=== PATIENT | female | born 1980 | race Caucasian/White ===

== ENCOUNTER 2021-08-28 10:52 | Outpatient (REF) | payer OTHER, SELFPAY ==
[2021-08-28 11:05] LABS: MANUAL DIFF FLAG NO
[2021-08-28 11:32] LABS: Basophils Absolute Auto 0.1 X10*3/uL (0.0-0.2); Basophils Percent Auto 1.3 % (0-2); Eosinophils Absolute Auto 0.1 X10*3/uL (0.0-0.4); Eosinophils Percent Auto 2.2 % (0-4); Hematocrit 42.6 % (37.0-47.0); Hemoglobin 13.7 g/dl (12.0-16.0); Imm Gran Abs Auto 0.01 X10*3/uL (0.00-0.03); Imm Gran Pct Auto 0.2 % (0.0-0.4); Lymphocytes Absolute Auto 1.4 X10*3/uL (1.2-4.9); Lymphocytes Percent Auto 25.2 % (20-40); Mean Corpuscular HGB Conc 32.2 g/dl (31.0-35.0); Mean Corpuscular Hemoglobin 27.7 pg (27.0-33.0); Mean Corpuscular Volume 86.2 fL (80.0-98.0); Mean Platelet Volume 10.4 fL (9.4-12.3); Monocytes Absolute Auto 0.5 X10*3/uL (0.1-1.2); Monocytes Percent Auto 8.6 % (2-11); Neutrophils Absolute Auto 3.4 x10*3/uL (2.0-8.3); Neutrophils Percent Auto 62.5 % (45-73); Platelet Count 249 X10*3/uL (160-400); Red Blood Count 4.94 X10*6/uL (4.20-5.50); Red Cell Distribution Width 12.9 % (11.0-16.0); White Blood Count 5.5 X10*3/uL (4.8-10.8)
[2021-08-28 11:48] LABS: INTERNATIONAL NORM RATIO 1.2 (0.9-1.1); Prothrombin Time 13.3 SEC (9.9-13.0)
[2021-08-28 12:12] LABS: Alanine Aminotransferase 14 U/L (0-31); Alkaline Phosphatase 69 U/L (39-117); Anion Gap 10 (12-20); Aspartate Amino Transferase 15 U/L (5-31); Bilirubin Total 0.9 mg/dL (0.0-1.0); Blood Urea Nitrogen 16 mg/dL (9-16); Calcium 9.3 mg/dL (8.4-10.2); Carbon Dioxide 26 mmol/L (22-29); Chloride 105 mmol/L (96-108); Cholesterol 191 mg/dL; Estimated Glomerular Filt Rate > 60; Glucose Random 80 mg/dL (60-115); HDL Cholesterol 76 mg/dL; LDL Cholesterol Calculated 105 mg/dl; Potassium 4.1 mmol/L (3.3-5.1); Sodium 137 mmol/L (135-145); Total Protein 7.4 g/dL (6.5-8.0); Triglycerides 52 mg/dL
[2021-08-28 12:18] LABS: TSH reflex Free T4 1.27 uIU/mL (0.32-4.0)
== END 2021-08-28 10:53 | disposition home or self-care (01) ==
LOC: HO.LAB 10:52
PROVIDERS: PCP Nurse Practitioner Family; Visit Provider Nurse Practitioner Family
DX: E78.00 Pure hypercholesterolemia, unspecified (principal); I10 Essential (primary) hypertension; E03.9 Hypothyroidism, unspecified; Z76.89 Persons encountering health services in other specified circumstances; Z86.718 Personal history of other venous thrombosis and embolism; Z87.59 Personal history of other complications of pregnancy, childbirth and the puerperium
CPT/HCPCS: 36415; 80053; 80061; 84443; 85025; 85610

== ENCOUNTER 2021-11-11 14:43 | Outpatient (REF) | payer OTHER, SELFPAY ==
[2021-11-11 17:56] LABS: Vitamin D 25-OH Total 20.4 ng/mL (>30)
== END 2021-11-11 14:44 | disposition home or self-care (01) ==
LOC: HO.LAB 14:43
PROVIDERS: PCP Nurse Practitioner Family; Visit Provider Nurse Practitioner Family
DX: E03.9 Hypothyroidism, unspecified (principal)
CPT/HCPCS: 36415; 82306; 84443

== ENCOUNTER 2022-03-03 12:51 | Outpatient (REF) | payer OTHER, SELFPAY ==
--- NOTE | ~2022-03-03 | US_ITS ---
EXAMINATION: US LOWER EXTREMITY VENOUS (REFLUX EXAM), BILATERAL CLINICAL INDICATION: Chronic venous insufficiency with lower extremity varicose veins COMPARISON: None. TECHNIQUE: Color flow triplex imaging and compression Doppler was performed to evaluate both the deep and the superficial systems bilaterally. To evaluate the superficial system, the examination was performed in the upright position. Color-flow Doppler ultrasound and compression ultrasound were utilized. In addition, maneuvers were utilized to demonstrate reflux. FINDINGS: 1. DEEP VENOUS ULTRASOUND OF THE RIGHT LOWER EXTREMITY: Common Femoral Vein: Compressible, normal respiratory variation and augmented flow. Femoral Vein: Compressible, normal color flow and augmentation. Popliteal Vein: Compressible, normal augmentation. Deep Reflux: There is no evidence of reflux in the deep system in either the common femoral vein or the popliteal vein. There is no evidence of a Larkin's cyst. 2. SUPERFICIAL ULTRASOUND WITH DOPPLER OF RIGHT LOWER EXTREMITY: GREAT SAPHENOUS VEIN: Saphenofemoral Junction: 0.8 cm; Reflux: 0 ms Proximal Thigh: 0.6 cm; Reflux: 0 ms Mid Thigh: 0.4 cm; Reflux: 0 ms Above Knee: 0.5 cm; Reflux: 0 ms At Knee: 0.2 cm; Reflux: 2888 ms Below Knee: 0.2 cm; Reflux: 3308 ms Mid Calf: 0.2 cm; Reflux: 3272 ms Ankle: 0.2 cm; Reflux: 0 ms DUPLICATED MEDIAL GREAT SAPHENOUS VEIN: Diameter: None Imaged Reflux: NA DUPLICATED LATERAL GREAT SAPHENOUS VEIN: Diameter: 0.5 cm Reflux: None SMALL SAPHENOUS VEIN: Proximal: 0.3 cm; Reflux: 2220 ms Distal: 0.4 cm; Reflux: 0 ms VEIN OF GIACOMINI: None Imaged. PERFORATORS: Location: None Imaged Size: NA Reflux: NA VARICOSITIES: Location: Proximal and mid thigh Size: 0.3 to 0.4 cm Reflux: None 3. DEEP VENOUS ULTRASOUND OF THE LEFT LOWER EXTREMITY: Common Femoral Vein: Compressible, normal respiratory variation and augmented flow. Femoral Vein: Compressible, normal color flow and augmentation. Popliteal Vein: Compressible, normal augmentation. Deep Reflux: There is no evidence of reflux in the deep system in either the common femoral vein or the popliteal vein. There is no evidence of a Larkin's cyst. 4. SUPERFICIAL ULTRASOUND WITH DOPPLER OF LEFT LOWER EXTREMITY: GREAT SAPHENOUS VEIN: Saphenofemoral Junction: 0.5 cm; Reflux: 624 ms Proximal Thigh: 0.6 cm; Reflux: 0 ms Mid Thigh: 0.4 cm; Reflux: 0 ms Above Knee: 0.4 cm; Reflux: 0 ms At Knee: 0.3 cm; Reflux: 0 ms Below Knee: 0.3 cm; Reflux: 0 ms Mid Calf: 2.2 cm; Reflux: 0 ms Ankle: 0.2 cm; Reflux: 0 ms DUPLICATED MEDIAL GREAT SAPHENOUS VEIN: Diameter: None Imaged Reflux: NA DUPLICATED LATERAL GREAT SAPHENOUS VEIN: Diameter: 0.4 cm Reflux: None SMALL SAPHENOUS VEIN: Proximal: 0.3 cm; Reflux: 0 ms Distal: 0.1 cm; Reflux: 0 ms VEIN OF GIACOMINI: None Imaged. PERFORATORS: Location: None Imaged Size: NA Reflux: NA VARICOSITIES: Location: None Imaged Size: NA Reflux: NA US/US venous duplex LE BI IMPRESSION: Right: Focal severe reflux in the great saphenous vein within the right calf. There is severe reflux in the right small saphenous vein. Small varicosities seen in the thigh Left: Borderline mild to moderate reflux in the left great saphenous vein at the saphenofemoral junction.
== END 2022-03-03 12:52 | disposition home or self-care (01) ==
LOC: HO.US 12:51
PROVIDERS: Visit Provider Surgery Vascular Surgery
DX: I83.12 Varicose veins of left lower extremity with inflammation (principal)
CPT/HCPCS: 93970

== ENCOUNTER 2022-05-05 13:15 | Outpatient (REF) | payer MEDICAID, SELFPAY ==
[2022-05-05 16:59] LABS: TSH reflex Free T4 2.72 uIU/mL (0.32-4.0); Vitamin D 25-OH Total 15.7 ng/mL (>30)
== END 2022-05-05 13:16 | disposition home or self-care (01) ==
LOC: HO.LAB 13:15
PROVIDERS: PCP Nurse Practitioner Family; Visit Provider Nurse Practitioner Family
DX: E03.9 Hypothyroidism, unspecified (principal); R79.89 Other specified abnormal findings of blood chemistry
CPT/HCPCS: 36415; 82306; 84443

== ENCOUNTER 2023-02-04 13:23 | Outpatient (REF) | payer OTHER, SELFPAY ==
[2023-02-04 14:47] LABS: TSH reflex Free T4 3.53 uIU/mL (0.32-4.0); Vitamin D 25-OH Total 22.1 ng/mL (>30)
== END 2023-02-04 13:24 | disposition home or self-care (01) ==
LOC: HO.LAB 13:23
PROVIDERS: PCP Nurse Practitioner Family; Visit Provider Nurse Practitioner Family
DX: E03.9 Hypothyroidism, unspecified (principal); R79.89 Other specified abnormal findings of blood chemistry
CPT/HCPCS: 36415; 82306; 84443

== ENCOUNTER 2023-04-20 15:12 | Outpatient (AMB) | payer OTHER, SELFPAY ==
--- OUTSIDE RECORDS SUMMARY | 2023-04-20 15:16 | XMS_ITS | Continuity of Care Document ---
Author Name Unknown Organization [facility] Address [address] [place] [address], [address] [address]- Care Team Providers Care Branch Office Manager Name Role Phone Not on Staff, PCP Primary Care Physician Unavail able Encounter [facility] Date(s): 05/27/20 - [facility] [address] [facility], [address] [place] [address]- Allergies, Adverse Reactions, Alerts Substance Reaction Severity Status Dust Active Medications doxycycline hyclate 100 mg oral tablet 1 tablet = 100 mg, By Mouth, 2 times a day, # 28 tablet, 5 Refills, Maintenance, 05/13/20 14:10:00 EST, [facility], Partial fill upon patient request if the prescription is for a scheduleII opioid drug., 170.1, cm, 03/20/20 10:21:00 EST,... Start Date: 05/13/20 Status: Ordered estradiol 0.1 mg/24 hours twice weekly transdermal film, extended release See Instructions, apply 2 patches the day after retrieval and change QOD, # 32 each, 5 Refills, Maintenance, 05/13/20 14:10:00 EST, [facility], Partial fill upon patient request if the prescription is for a schedule II opioid drug., 170.1,... Start Date: 05/13/20 Status: Ordered Gonal-F 1050 units subcutaneous injection = 300 International_Units, Subcutaneous Infusion, Daily, # 3 kit, 5 Refills, Maintenance, 05/13/20 14:10:00 EST, [facility], Partial fill upon patient request if the prescription is for aschedule II opioid drug., 300 International_Units S... Start Date: 05/13/20 Status: Ordered leuprolide 5 mg/mL subcutaneous solution See Instructions, 10 units sc QD, needs for 05/26, # 1 kit, 5 Refills, Maintenance, 05/13/20 14:13:00 EST, [facility], Partial fill upon patient request if the prescription is for a schedule II opioid drug., 170.1, cm, 03/20/20 10:21:00 EST... Start Date: 05/13/20 Status: Ordered levothyroxine 0.137 mg oral tablet 1 tablet, By Mouth, Daily, # 90 tablet, 3 Refills, Maintenance, 06/19/20 9:24:00 EST, [facility] #[id number], 170.1, cm, 03/20/20 10:21:00 EST, Height, 65.9, kg, 10/29/19 13:03:00 EDT, Dry Weight Start Date: 06/19/20 Status: Ordered Menopur 75 intl units subcutaneous injection = 150 International_Units, Subcutaneous Infusion, Daily, # 25 each, 5 Refills, Maintenance, 05/13/20 14:10:00 EST, [facility], Partial fill upon patient request if the prescription is fora schedule II opioid drug., 170.1, cm, 03/20/20 10:... Start Date: 05/13/20 Status: Ordered Ovidrel 250 mcg/0.5 mL subcutaneous solution = 250 mcg, Subcutaneous Injection, Once, # 1 each, 5 Refills, Soft Stop, 05/13/20 14:10:00 EST, Solution, [facility], Partial fill upon patient request if the prescription is for a schedule II opioid drug., 170.1, cm, 03/20/20 10:21:00 EST... Start Date: 05/13/20 Status: Ordered Multivitamins See Instructions, Takes By Mouth Every other day, 0 Refills, Maintenance, 03/20/20 10:22:00 EST, Partial fill upon patient request Start Date: 03/20/20 Status: Ordered Prometrium 200 mg oral capsule See Instructions, Insert 1 vaginally TID, # 90 capsule, 5 Refills, Maintenance, 05/13/20 14:10:00 EST, [facility], Partial fill upon patient request if the prescription is for a schedule II opioid drug., 170.1, cm, 03/20/20 10:21:00 EST, H... Start Date: 05/13/20 Status: Ordered Problem List Condition Effective Dates Status Health Status Inform ant Acquired hypothyroidism(Confirmed) Active Bilateral ovarian cysts(Confirmed) Active Dysmenorrhea(Confirmed) Active Endometriosis, severe(Confirmed) Active Female infertility(Confirmed) Active Social History Social History Type Response Smoking Status Never smoker entered on: 01/19/18 Sex
--- OUTSIDE RECORDS SUMMARY | 2023-04-20 15:16 | XMS_ITS | Continuity of Care Document ---
Author Name Unknown Organization [facility] Address [address] [place] [address], [address] [place] [address]- Care Team Providers Care Associate Team Physician Name Role Phone Radhika HERNANDEZ, Cristal Primary Care Physician [phone] Encounter [facility] Date(s): 07/18/20 - 08/17/20 [facility] [address], [address] [place] [address]- Allergies, Adverse Reactions, Alerts Substance Reaction Severity Status Dust Active Medications 0.5cc insulin syringes 0.5cc insulin syringes, See Instructions, # 10 each, Refills 5, Tot. Refills 5, Maintenance, use with lupron; pt already has this medication, 07/04/20 11:27:00 EST, Compound, 170.1, cm, 03/20/20 10:21:00 EST, Height, 65.9, kg, 10/29/19 13:03:00 Mal ABERNATHY.. Start Date: 07/04/20 Status: Ordered cabergoline 0.5 mg oral tablet 1 tablet = 0.5 mg, By Mouth, Daily, Begin 2 hours before hCG injection, # 7 tablet, 0 Refills, Maintenance, 07/12/20 12:08:00 EST, [facility] #[id number], Partial fill upon patient request if the prescription is for a schedule II opioid drug., 1... Start Date: 07/12/20 Stop Date: 07/19/20 Status: Ordered doxycycline hyclate 100 mg oral tablet 1 tablet = 100 mg, By Mouth, 2 times a day, # 28 tablet, 5 Refills, Maintenance, 05/13/20 14:10:00 EST, [facility], Partial fill upon patient request if the prescription is for a scheduleII opioid drug., 170.1, cm, 03/20/20 10:21:00 EST,... Start Date: 05/13/20 Status: Ordered estradiol 0.1 mg/24 hours twice weekly transdermal film, extended release See Instructions, apply 2 patches the day after retrieval and change QOD, # 32 each, 5 Refills, Maintenance, 05/13/20 14:10:00 EST, [facility], Partial fill upon patient request if the prescription is for a schedule II opioid drug., 170.1,... Start Date: 05/13/20 Status: Ordered Gonal-F 1050 units subcutaneous injection = 300 International_Units, Subcutaneous Infusion, Daily, # 3 kit, 5 Refills, Maintenance, 05/13/20 14:10:00 EST, [facility], Partial fill upon patient request if the prescription is for aschedule II opioid drug., 300 International_Units S... Start Date: 05/13/20 Status: Ordered leuprolide 5 mg/mL subcutaneous solution See Instructions, 10 units sc QD, needs for 05/26, # 1 kit, 5 Refills, Maintenance, 05/13/20 14:13:00 EST, [facility], Partial fill upon patient request if the prescription is for a schedule II opioid drug., 170.1, cm, 03/20/20 10:21:00 EST... Start Date: 05/13/20 Status: Ordered levothyroxine 0.137 mg oral tablet 1 tablet, By Mouth, Daily, # 90 tablet, 3 Refills, Maintenance, 06/19/20 9:24:00 EST, [facility] #[id number], 170.1, cm, 03/20/20 10:21:00 EST, Height, 65.9, kg, 10/29/19 13:03:00 EDT, Dry Weight Start Date: 06/19/20 Status: Ordered Menopur 75 intl units subcutaneous injection = 150 International_Units, Subcutaneous Infusion, Daily, # 25 each, 5 Refills, Maintenance, 05/13/20 14:10:00 EST, [facility], Partial fill upon patient request if the prescription is fora schedule II opioid drug., 170.1, cm, 03/20/20 10:... Start Date: 05/13/20 Status: Ordered Ovidrel 250 mcg/0.5 mL subcutaneous solution = 250 mcg, Subcutaneous Injection, Once, # 1 each, 5 Refills, Soft Stop, 05/13/20 14:10:00 EST, Solution, [facility], Partial fill upon patient request if the prescription is for a schedule II opioid drug., 170.1, cm, 03/20/20 10:21:00 EST... Start Date: 05/13/20 Status: Ordered oxyCODONE 5 mg oral tablet 5 mg, 1, tablet, By Mouth, Every 6 hours, PRN, # 8 tablet, Refills 0, Tot. Refills 0, Maintenance, Pain , Severe, 07/12/20 13:53:00 EST, Route to Pharmacy Electronically, [facility] #[id number],Partial fill upon patient request, 170.1, cm, 03/20... Start Date: 07/12/20 Status: Ordered Multivitamins See Instructions, Takes By Mouth Every other day, 0 Refills, Maintenance, 03/20/20 10:22:00 EST, Partial fill upon patient request Start Date: 03/20/20 Status: Ordered Prometrium 200 mg oral capsule See Instructions, Insert 1 vaginally TID, # 90 capsule, 5 Refills, Maintenance, 05/13/20 14:10:00 EST, [facility], Partial fill upon patient request if the prescription is for a schedule II opioid drug., 170.1, cm, 03/20/20 10:21:00 EST, H... Start Date: 05/13/20 Status: Ordered Valium 5 mg oral tablet 5 mg, 1, tablet, By Mouth, Once, 1 tab po 1hr before procedure take the other with you to the hospital. May repeat X 1., # 2 tablet, Refills 0, Tot. Refills 0, Soft Stop, 07/12/20 13:53:00 EST, [facility], [facility]... Start Date: 07/12/20 Status: Ordered Problem List Condition Effective Dates Status Health Status Inform ant Acquired hypothyroidism(Confirmed) Active Bilateral ovarian cysts(Confirmed) Active Dysmenorrhea(Confirmed) Active Endometriosis, severe(Confirmed) Active Female infertility(Confirmed) Active Social History Social History Type Response Smoking Status Never smoker entered on: 01/19/18 Sex
--- OUTSIDE RECORDS SUMMARY | 2023-04-20 15:16 | XMS_ITS | Continuity of Care Document ---
Author Name Unknown Organization [facility] Address [address], [address] [place] [address]- Care Team Providers Care Video Machines Mechanic Name Role Phone Not on Staff, PCP Primary Care Physician Unavail able Encounter [facility] Date(s): 05/15/20 - 06/14/20 [facility] [address] [place] [address] Allergies, Adverse Reactions, Alerts Substance Reaction Severity Status Dust Active Medications doxycycline hyclate 100 mg oral tablet 1 tablet = 100 mg, By Mouth, 2 times a day, # 28 tablet, 5 Refills, Maintenance, 05/13/20 14:10:00 EST, [facility], Partial fill upon patient request if the prescription is for a scheduleII opioid drug., 170.1, cm, 03/20/20 10:21:00 EST,... Start Date: 05/13/20 Status: Ordered estradiol 0.1 mg/24 hours twice weekly transdermal film, extended release See Instructions, apply 2 patches the day after retrieval and change QOD, # 32 each, 5 Refills, Maintenance, 05/13/20 14:10:00 EST, [facility], Partial fill upon patient request if the prescription is for a schedule II opioid drug., 170.1,... Start Date: 05/13/20 Status: Ordered Gonal-F 1050 units subcutaneous injection = 300 International_Units, Subcutaneous Infusion, Daily, # 3 kit, 5 Refills, Maintenance, 05/13/20 14:10:00 EST, [facility], Partial fill upon patient request if the prescription is for aschedule II opioid drug., 300 International_Units S... Start Date: 05/13/20 Status: Ordered leuprolide 5 mg/mL subcutaneous solution See Instructions, 10 units sc QD, needs for 05/26, # 1 kit, 5 Refills, Maintenance, 05/13/20 14:13:00 EST, [facility], Partial fill upon patient request if the prescription is for a schedule II opioid drug., 170.1, cm, 03/20/20 10:21:00 EST... Start Date: 05/13/20 Status: Ordered levothyroxine 137 mcg (0.137 mg) oral capsule 1 capsule = 137 mcg, By Mouth, Daily, # 30 capsule, 2 Refills, Maintenance, 03/25/20 16:29:00 EST, Capsule, [facility] #[id number], Partial fill upon patient request, 170.1, cm, 03/20/20 10:21:00 EST, Height, 65.9, kg, 10/29/19 13:03:00 EDT, Dry... Start Date: 03/25/20 Status: Ordered Menopur 75 intl units subcutaneous injection = 150 International_Units, Subcutaneous Infusion, Daily, # 25 each, 5 Refills, Maintenance, 05/13/20 14:10:00 EST, [facility], Partial fill upon patient request if the prescription is fora schedule II opioid drug., 170.1, cm, 03/20/20 10:... Start Date: 05/13/20 Status: Ordered Ovidrel 250 mcg/0.5 mL subcutaneous solution = 250 mcg, Subcutaneous Injection, Once, # 1 each, 5 Refills, Soft Stop, 05/13/20 14:10:00 EST, Solution, [facility], Partial fill upon patient request [...] capsule, 5 Refills, Maintenance, 05/13/20 14:10:00 EST, [facility], Partial fill upon patient request if [...]
--- OUTSIDE RECORDS SUMMARY | 2023-04-20 15:16 | XMS_ITS | Continuity of Care Document ---
Author Name Unknown Organization [facility] Address [address] [place] [address], [address] [address]- Care Team Providers Care Manager Physical Name Role Phone Not on Staff, PCP Primary Care Physician Unavail able [place] [facility] [place]03[place] - 07/03/20 [facility] [address] [facility] [place] [address]- Allergies, Adverse Reactions, Alerts Substance Reaction Severity Status Dust Active Medications 0.5cc insulin syringes 0.5cc insulin syringes, See Instructions, # 10 each, Refills 5, Tot. Refills 5, Maintenance, use with lupron; pt already has this medication, 07/03/20 16:40:00 EST, Compound, 170.1, cm, 03/20/20 10:21:00 EST, Height, 65.9, kg, 10/29/19 13:03:00 EDT DMahi.. Start Date: 07/03/20 Status: Ordered doxycycline hyclate 100 mg oral tablet 1 tablet = 100 mg, By Mouth, 2 times a day, # 28 tablet, 5 Refills, Maintenance, 05/13/20 14:10:00 EST, [facility], Partial fill upon patient request if the prescription is for a scheduleII opioid drug., 170.1, cm, 03/20/20 10:21:00 EST,... Start Date: 05/13/20 Status: Ordered estradiol 0.1 mg/24 hours twice weekly transdermal film, extended release See Instructions, apply 2 patches the day after retrieval and change QOD, # 32 each, 5 Refills, Maintenance, 05/13/20 14:10:00 EST, [facility], Partial fill upon patient request if the prescription is for a schedule II opioid drug., 170.1,... Start Date: 05/13/20 Status: Ordered Gonal-F 1050 units subcutaneous injection = 300 International_Units, Subcutaneous Infusion, Daily, # 3 kit, 5 Refills, Maintenance, 05/13/20 14:10:00 EST, [facility], Partial fill upon patient request if the prescription is for aschedule II opioid drug., 300 International_Units S... Start Date: 05/13/20 Status: Ordered leuprolide 5 mg/mL subcutaneous solution See Instructions, 10 units sc QD, needs for 05/26, # 1 kit, 5 Refills, Maintenance, 05/13/20 14:13:00 EST, [facility], Partial fill upon patient request if the prescription is for a schedule II opioid drug., 170.1, cm, 03/20/20 10:21:00 EST... Start Date: 05/13/20 Status: Ordered levothyroxine 0.137 mg oral tablet 1 tablet, By Mouth, Daily, # 90 tablet, 3 Refills, Maintenance, 06/19/20 9:24:00 EST, [facility] #[id number], 170.1, cm, 03/20/20 10:21:00 EST, Height, 65.9, kg, 10/29/19 13:03:00 EDT, Dry Weight Start Date: 06/19/20 Status: Ordered Menopur 75 intl units subcutaneous injection = 150 International_Units, Subcutaneous Infusion, Daily, # 25 each, 5 Refills, Maintenance, 05/13/20 14:10:00 EST, [facility], Partial fill upon patient request if the prescription is fora schedule II opioid drug., 170.1, cm, 03/20/20 10:... Start Date: 05/13/20 Status: Ordered Ovidrel 250 mcg/0.5 mL subcutaneous solution = 250 mcg, Subcutaneous Injection, Once, # 1 each, 5 Refills, Soft Stop, 05/13/20 14:10:00 EST, Solution, [facility], Partial fill upon patient [...] capsule, 5 Refills, Maintenance, 05/13/20 14:10:00 EST, [facility], Partial fill upon patient [...]
--- OUTSIDE RECORDS SUMMARY | 2023-04-20 15:16 | XMS_ITS | Continuity of Care Document ---
Author Name Unknown Organization [facility] Address [address], [address] [place] [address]- Care Team Providers Care Pedodontist Name Role Phone Not on Staff, PCP Primary Care Physician Unavail able [place] [facility] [place]20 [facility] [address] [place] [address] Allergies, Adverse Reactions, Alerts Substance Reaction Severity Status Dust Active Medications 0.5cc insulin syringes 0.5cc insulin syringes, See Instructions, # 10 each, Refills 5, Tot. Refills 5, Maintenance, use with lupron; pt already has this medication, 07/04/20 11:27:00 EST, Compound, 170.1, cm, 03/20/20 10:21:00 EST, Height, 65.9, kg, 10/29/19 13:03:00 EDT DMahi.. Start Date: 07/04/20 Status: Ordered cabergoline 0.5 mg oral tablet 1 tablet = 0.5 mg, By Mouth, Daily, Begin 2 hours before hCG injection, # 7 tablet, 0 Refills, Maintenance, 07/12/20 12:08:00 EST, [facility] #[id number], Partial fill upon patient request if the prescription is for a schedule II opioid drug., 1... Start Date: 07/12/20 Stop Date: 07/19/20 Status: Ordered doxycycline hyclate 100 mg oral tablet 1 tablet = 100 mg, By Mouth, 2 times a day, # 28 tablet, 5 Refills, Maintenance, 05/13/20 14:10:00 EST, [facility], Partial fill upon patient request if the prescription is for a scheduleII opioid drug., 170.1, cm, 03/20/20 10:21:00 EST,... Start Date: 05/13/20 Status: Ordered estradiol 0.1 mg/24 hours twice weekly transdermal film, extended release See Instructions, apply 2 patches the day after retrieval and change QOD, # 32 each, 5 Refills, Maintenance, 05/13/20 14:10:00 EST, [facility], Partial fill upon patient request if the prescription is for a schedule II opioid drug., 170.1,... Start Date: 05/13/20 Status: Ordered Gonal-F 1050 units subcutaneous injection = 300 International_Units, Subcutaneous Infusion, Daily, # 3 kit, 5 Refills, Maintenance, 05/13/20 14:10:00 EST, [facility], Partial fill upon patient request if the prescription is for aschedule II opioid drug., 300 International_Units S... Start Date: 05/13/20 Status: Ordered leuprolide 5 mg/mL subcutaneous solution See Instructions, 10 units sc QD, needs for 05/26, # 1 kit, 5 Refills, Maintenance, 05/13/20 14:13:00 EST, [facility], Partial fill upon patient request if the prescription is for a schedule II opioid drug., 170.1, cm, 03/20/20 10:21:00 EST... Start Date: 05/13/20 Status: Ordered levothyroxine 0.137 mg oral tablet 1 tablet, By Mouth, Daily, # 90 tablet, 3 Refills, Maintenance, 06/19/20 9:24:00 EST, [facility] #[id number], 170.1, cm, 03/20/20 10:21:00 EST, Height, 65.9, kg, 10/29/19 13:03:00 EDT, Dry Weight Start Date: 06/19/20 Status: Ordered Menopur 75 intl units subcutaneous injection = 150 International_Units, Subcutaneous Infusion, Daily, # 25 each, 5 Refills, Maintenance, 05/13/20 14:10:00 EST, [facility], Partial fill upon patient request if the prescription is fora schedule II opioid drug., 170.1, cm, 03/20/20 10:... Start Date: 05/13/20 Status: Ordered Ovidrel 250 mcg/0.5 mL subcutaneous solution = 250 mcg, Subcutaneous Injection, Once, # 1 each, 5 Refills, Soft Stop, 05/13/20 14:10:00 EST, Solution, [facility], Partial fill upon patient request if the prescription is for a schedule II opioid drug., 170.1, cm, 03/20/20 10:21:00 EST... Start Date: 05/13/20 Status: Ordered oxyCODONE 5 mg oral tablet 5 mg, 1, tablet, By Mouth, Every 6 hours, PRN, # 8 tablet, Refills 0, Tot. Refills 0, Maintenance, Pain , Severe, 07/12/20 13:53:00 EST, Route to Pharmacy Electronically, [facility] #[id number],Partial fill upon patient request, 170.1, cm, 03/20... Start Date: 07/12/20 Status: Ordered Multivitamins See Instructions, Takes By Mouth Every other day, 0 Refills, Maintenance, 03/20/20 10:22:00 EST, Partial fill upon patient request Start Date: 03/20/20 Status: Ordered Prometrium 200 mg oral capsule See Instructions, Insert 1 vaginally TID, # 90 capsule, 5 Refills, Maintenance, 05/13/20 14:10:00 EST, [facility], Partial fill upon patient [...] Stop, 07/12/20 13:53:00 EST, [facility], [facility] #0... Start Date: 07/12/20 Status: Ordered Problem List Condition Effective Dates Status Health Status Inform ant Acquired hypothyroidism(Confirmed) Active Bilateral ovarian cysts(Confirmed) Active Dysmenorrhea(Confirmed) Active Endometriosis, severe(Confirmed) Active Female infertility(Confirmed) Active Social History Social History Type Response Smoking Status Never smoker entered on: 01/19/18 Sex
--- OUTSIDE RECORDS SUMMARY | 2023-04-20 15:16 | XMS_ITS | Continuity of Care Document ---
Author Name Unknown Organization [facility] Address [address] [place] [address], [address] [place] [address]- Care Team Providers Care Recruit Instructor Name Role Phone Not on Staff, PCP Primary Care Physician Unavail able [place] [facility] [place] 06/24/20 - [facility] [address], [address] [place] [address]- Allergies, Adverse Reactions, Alerts Substance Reaction Severity Status Dust Active Medications 0.5cc insulin syringes 0.5cc insulin syringes, See Instructions, # 10 each, Refills 5, Tot. Refills 5, Maintenance, use with lupron; pt already has this medication, 07/04/20 11:27:00 EST, Compound, 170.1, cm, 03/20/20 10:21:00 EST, Height, 65.9, kg, 10/29/19 13:03:00 EDTMal.. Start Date: 07/04/20 Status: Ordered cabergoline 0.5 mg oral tablet 1 tablet = 0.5 mg, By Mouth, Daily, Begin 2 hours before hCG injection, # 7 tablet, 0 Refills, Maintenance, 07/12/20 12:08:00 EST, [facility] #[id number], Partial fill upon patient request if the prescription is for a schedule II opioid drug., 1... Start Date: 07/12/20 Stop Date: 07/19/20 Status: Ordered doxycycline hyclate 100 mg oral tablet 1 tablet = 100 mg, By Mouth, 2 times a day, # 28 tablet, 5 Refills, Maintenance, 05/13/20 14:10:00 EST, [facility], Partial fill upon patient request if the prescription is for a scheduleII opioid drug., 170.1, cm, 03/20/20 10:21:00 EST,... Start Date: 05/13/20 Status: Ordered estradiol 0.1 mg/24 hours twice weekly transdermal film, extended release See Instructions, apply 2 patches the day after retrieval and change QOD, # 32 each, 5 Refills, Maintenance, 05/13/20 14:10:00 EST, [facility], Partial fill upon patient request if the prescription is for a schedule II opioid drug., 170.1,... Start Date: 05/13/20 Status: Ordered Gonal-F 1050 units subcutaneous injection = 300 International_Units, Subcutaneous Infusion, Daily, # 3 kit, 5 Refills, Maintenance, 05/13/20 14:10:00 EST, [facility], Partial fill upon patient request if the prescription is for aschedule II opioid drug., 300 International_Units S... Start Date: 05/13/20 Status: Ordered leuprolide 5 mg/mL subcutaneous solution See Instructions, 10 units sc QD, needs for 05/26, # 1 kit, 5 Refills, Maintenance, 05/13/20 14:13:00 EST, [facility], Partial fill upon patient request if the prescription is for a schedule II opioid drug., 170.1, cm, 03/20/20 10:21:00 EST... Start Date: 05/13/20 Status: Ordered levothyroxine 0.137 mg oral tablet 1 tablet, By Mouth, Daily, # 90 tablet, 3 Refills, Maintenance, 06/19/20 9:24:00 EST, [facility] #[id number], 170.1, cm, 03/20/20 10:21:00 EST, Height, 65.9, kg, 10/29/19 13:03:00 EDT, Dry Weight Start Date: 06/19/20 Status: Ordered Menopur 75 intl units subcutaneous injection = 150 International_Units, Subcutaneous Infusion, Daily, # 25 each, 5 Refills, Maintenance, 05/13/20 14:10:00 EST, [facility], Partial fill upon patient request if the prescription is fora schedule II opioid drug., 170.1, cm, 03/20/20 10:... Start Date: 05/13/20 Status: Ordered Ovidrel 250 mcg/0.5 mL subcutaneous solution = 250 mcg, Subcutaneous Injection, Once, # 1 each, 5 Refills, Soft Stop, 05/13/20 14:10:00 EST, Solution, [facility], Partial fill upon patient request if the prescription is for a schedule II opioid drug., 170.1, cm, 03/20/20 10:21:00 EST... Start Date: 05/13/20 Status: Ordered oxyCODONE 5 mg oral tablet 5 mg, 1, tablet, By Mouth, Every 6 hours, PRN, # 8 tablet, Refills 0, Tot. Refills 0, Maintenance, Pain , Severe, 07/12/20 13:53:00 EST, Route to Pharmacy Electronically, [facility] #[id number],Partial fill upon patient request, 170.1, cm, 03/20... Start Date: 07/12/20 Status: Ordered Multivitamins See Instructions, Takes By Mouth Every other day, 0 Refills, Maintenance, 03/20/20 10:22:00 EST, Partial fill upon patient request Start Date: 03/20/20 Status: Ordered Prometrium 200 mg oral capsule See Instructions, Insert 1 vaginally TID, # 90 capsule, 5 Refills, Maintenance, 05/13/20 14:10:00 EST, [facility], Partial fill upon patient request [...] Stop, 07/12/20 13:53:00 EST, [facility], [facility]... Start Date: 07/12/20 Status: Ordered Problem List Condition Effective Dates Status Health Status Inform ant Acquired hypothyroidism(Confirmed) Active Bilateral ovarian cysts(Confirmed) Active Dysmenorrhea(Confirmed) Active Endometriosis, severe(Confirmed) Active Female infertility(Confirmed) Active Social History Social History Type Response Smoking Status Never smoker entered on: 01/19/18 Sex
--- OUTSIDE RECORDS SUMMARY | 2023-04-20 15:16 | XMS_ITS | Continuity of Care Document ---
Author Name Unknown Organization [facility] Address [address] [place] [address]- Care Team Providers Care Portuguese Tutor Name Role Phone Cristal Garrido MD Primary Care Physician Encounter [facility] [place] Date(s): 12/05/20 - 01/04/21 [facility] [address] [place] [address]- Allergies, Adverse Reactions, Alerts Substance Reaction Severity Status Dust Active Medications enoxaparin 120 mg/0.8 mL injectable solution 0.8 mL = 120 mg, Subcutaneous Injection, Daily, for 30 days, # 24 mL, 1 Refills, Acute 02/26/21 8:17:00 EDT, 12/28/20 8:17:00 EDT, Injection, [facility] #[id number], Partial fill upon patient request if the prescription is for a schedule II opioi... Start Date: 12/28/20 Stop Date: 02/26/21 Status: Ordered levothyroxine 0.137 mg oral tablet 1 tablet, By Mouth, Daily, # 90 tablet, 3 Refills, Maintenance, 06/19/20 9:24:00 EST, [facility] #[id number], 170.1, cm, 03/20/20 10:21:00 EST, Height, 65.9, kg, 10/29/19 13:03:00 EDT, Dry Weight Start Date: 06/19/20 Status: Ordered Multivitamins See Instructions, Takes By Mouth Every other day, 0 Refills, Maintenance, 03/20/20 10:22:00 EST, Partial fill upon patient request Start Date: 03/20/20 Status: Ordered Problem List Condition Effective Dates Status Health Status Inform ant Acquired hypothyroidism(Confirmed) Active Bilateral ovarian cysts(Confirmed) Active Dysmenorrhea(Confirmed) Active Endometriosis, severe(Confirmed) Active Female infertility(Confirmed) Active Social History Social History Type Response Smoking Status Never smoker entered on: 01/19/18 Sex
--- OUTSIDE RECORDS SUMMARY | 2023-04-20 15:16 | XMS_ITS | Continuity of Care Document ---
Author Name Unknown Organization [facility] Address [address] [place] [address], [address] [place] [address]- Care Team Providers Care Director Of Cardiac Cath Lab Name Role Phone Radhika HERNANDEZ, Cristal Primary Care Physician [place] [facility] [place] [facility] [address], [address] [place] [address]- Allergies, Adverse Reactions, Alerts Substance Reaction Severity [...] tablet, 0 Refills, Maintenance, 07/12/20 12:08:00 EST, [facility] #[id number], Partial fill upon patient request if the prescription is for a schedule II opioid drug., 1... Start Date: 07/12/20 Stop Date: 07/19/20 Status: Ordered doxycycline hyclate 100 mg oral tablet 1 tablet = 100 mg, By Mouth, 2 times a day, # 28 tablet, 5 Refills, Maintenance, 05/13/20 14:10:00 EST, [facility], Partial fill upon patient request if the prescription is for a scheduleII opioid drug., 170.1, cm, 03/20/20 10:21:00 EST,... Start Date: 05/13/20 Status: Ordered estradiol 0.1 mg/24 hours twice weekly transdermal film, extended release See Instructions, apply 2 patches the day after retrieval and change QOD, # 32 each, 5 Refills, Maintenance, 05/13/20 14:10:00 EST, [facility], Partial fill upon patient request if the prescription is for a schedule II opioid drug., 170.1,... Start Date: 05/13/20 Status: Ordered Gonal-F 1050 units subcutaneous injection = 300 International_Units, Subcutaneous Infusion, Daily, # 3 kit, 5 Refills, Maintenance, 05/13/20 14:10:00 EST, [facility], Partial fill upon patient request if the prescription is for aschedule II opioid drug., 300 International_Units S... Start Date: 05/13/20 Status: Ordered leuprolide 5 mg/mL subcutaneous solution See Instructions, 10 units sc QD, needs for 05/26, # 1 kit, 5 Refills, Maintenance, 05/13/20 14:13:00 EST, [facility], Partial fill upon patient request if the prescription is for a schedule II opioid drug., 170.1, cm, 03/20/20 10:21:00 EST... Start Date: 05/13/20 Status: Ordered levothyroxine 0.137 mg oral tablet 1 tablet, By Mouth, Daily, # 90 tablet, 3 Refills, Maintenance, 06/19/20 9:24:00 EST, [facility] #[id number], 170.1, cm, 03/20/20 10:21:00 EST, Height, 65.9, kg, 10/29/19 13:03:00 EDT, Dry Weight Start Date: 06/19/20 Status: Ordered Menopur 75 intl units subcutaneous injection = 150 International_Units, Subcutaneous Infusion, Daily, # 25 each, 5 Refills, Maintenance, 05/13/20 14:10:00 EST, [facility], Partial fill upon patient request if the prescription is fora schedule II opioid drug., 170.1, cm, 03/20/20 10:... Start Date: 05/13/20 Status: Ordered Ovidrel 250 mcg/0.5 mL subcutaneous solution = 250 mcg, Subcutaneous Injection, Once, # 1 each, 5 Refills, Soft Stop, 05/13/20 14:10:00 EST, Solution, [facility], Partial fill upon patient request if the prescription is for a schedule II opioid drug., 170.1, cm, 03/20/20 10:21:00 EST... Start Date: 05/13/20 Status: Ordered oxyCODONE 5 mg oral tablet 5 mg, 1, tablet, By Mouth, Every 6 hours, PRN, # 8 tablet, Refills 0, Tot. Refills 0, Maintenance, Pain , Severe, 07/12/20 13:53:00 EST, Route to Pharmacy Electronically, [facility] #[id number],Partial fill upon patient request, 170.1, cm, 03/20... Start Date: 07/12/20 Status: Ordered Multivitamins See Instructions, Takes By Mouth Every other day, 0 Refills, Maintenance, 03/20/20 10:22:00 EST, Partial fill upon patient request Start Date: 03/20/20 Status: Ordered Prometrium 200 mg oral capsule See Instructions, Insert 1 vaginally TID, # 90 capsule, 5 Refills, Maintenance, 05/13/20 14:10:00 EST, [facility], Partial fill upon [...] Stop, 07/12/20 13:53:00 EST, [facility], [facility] #0... Start Date: 07/12/20 Status: Ordered Problem List Condition Effective Dates Status Health Status Inform ant Acquired hypothyroidism(Confirmed) Active Bilateral ovarian cysts(Confirmed) Active Dysmenorrhea(Confirmed) Active Endometriosis, severe(Confirmed) Active Female infertility(Confirmed) Active Social History Social History Type Response Smoking Status Never smoker entered on: 01/19/18 Sex
--- OUTSIDE RECORDS SUMMARY | 2023-04-20 15:16 | XMS_ITS | Continuity of Care Document ---
Author Name Unknown Organization [facility] Address [address], [address] [place] [address]- Care Team Providers Care Forestry Crew Chief Name Role Phone Radhika HERNANDEZ, Cristal Primary Care Physician [place] [facility] [place](s[place] 09/29/20 - 10/06/20 [facility] [address], [address] [place] [id number]- Attending Physician: Eneida Villanueva MD Referring Physician: Cristal Garrido MD Allergies, Adverse Reactions, Alerts Substance Reaction Severity Status Dust Active Medications 22g 1 1/2 inch needle 22g 1 1/2 inch needle, See Instructions, # 30 each, Refills 0, Tot. Refills 0, Maintenance, use to give IM progesterone, 08/18/20 17:36:00 EDT, Compound, 170.1, cm, 08/04/20 7:44:00 EDT, Height, 65.9, kg, 10/29/19 13:03:00 EDT, Dry Weight Start Date: 08/18/20 Status: Ordered 3 cc syringe with 18g 1 1/2 needles 3 cc syringe with 18g 1 1/2 needles, See Instructions, # 30 each, Refills 5, Tot. Refills 5, Maintenance, use to draw up IM Progesterone, 08/18/20 17:36:00 EDT, Compound, 170.1, cm, 08/04/20 7:44:00EDT, Height, 65.9, kg, 10/29/19 13:03:00 EDT, Dry W... Start Date: 08/18/20 Status: Ordered levothyroxine 0.137 mg oral tablet 1 tablet, By Mouth, Daily, # 90 tablet, 3 Refills, Maintenance, 06/19/20 9:24:00 EST, [facility] #[id number], 170.1, cm, 03/20/20 10:21:00 EST, Height, 65.9, kg, 10/29/19 13:03:00 EDT, Dry Weight Start Date: 06/19/20 Status: Ordered Multivitamins See Instructions, Takes By Mouth Every other day, 0 Refills, Maintenance, 03/20/20 10:22:00 EST, Partial fill upon patient request Start Date: 03/20/20 Status: Ordered progesterone 50 mg/mL intramuscular solution 1 mL = 50 mg, Intramuscular, Daily, in sesame oil, # 30 mL, 5 Refills, Maintenance, 08/18/20 17:36:00 EDT, [facility], Partial fill upon patient request if the prescription is for a schedule II opioid drug., 170.1, cm, 08/04/20 7:44:0... Start Date: 08/18/20 Status: Ordered Prometrium 200 mg oral capsule See Instructions, Insert 1 vaginally TID, # 90 capsule, 5 Refills, Maintenance, 05/13/20 14:10:00 EST, [facility], Partial fill upon [...]
--- OUTSIDE RECORDS SUMMARY | 2023-04-20 15:16 | XMS_ITS | Continuity of Care Document ---
Author Name Unknown Organization [facility] Address [address] [place] [address], [address] [place] [address]- Care Team Providers Care Nail Artist Name Role Phone Cristal Garrido MD Primary Care Physician [phone] Encounter [facility] [place] Date(s): 08/15/20 - 09/14/20 [facility] [address], [address] [place] [address]- Allergies, Adverse Reactions, Alerts Substance Reaction Severity [...] 90 tablet, 3 Refills, Maintenance, 06/19/20 9:24:00 [facility] #[id number], 170.1, cm, 03/20/20 10:21:00 EST, Height, 65.9, [...] mL, 5 Refills, Maintenance, 08/18/20 17:36:00 EDT, [facility], Partial fill upon patient request if the prescription is for a schedule II opioid drug., 170.1, cm, 08/04/20 7:44:0... Start Date: 08/18/20 Status: Ordered Prometrium 200 mg oral capsule See Instructions, Insert 1 vaginally TID, # 90 capsule, 5 Refills, Maintenance, 05/13/20 14:10:00 EST, [facility], Partial fill upon [...]
--- OUTSIDE RECORDS SUMMARY | 2023-04-20 15:16 | XMS_ITS | Continuity of Care Document ---
Author Name Unknown Organization [facility] Address [address] [place] [address], 4t h [address] [place] [address]- Care Team Providers Care Assistant Teacher Name Role Phone Radhika HERNANDEZ, Cristal Primary Care Physician [phone] Encounter [facility] Date(s): 08/10/20 - 08/17/20 [facility] Rep[facility] [address] [facility], 4th [address] [place] [id number] Attending Physician: Cristal Garrido MD Referring Physician: Radha Valenzuela MD Allergies, Adverse Reactions, Alerts Substance Reaction [...] tablet, 0 Refills, Maintenance, 07/12/20 12:08:00 EST, [facility] #[id number], Partial fill upon patient request if the prescription is for a schedule II opioid drug., 1... Start Date: 07/12/20 Stop Date: 07/19/20 Status: Ordered doxycycline hyclate 100 mg oral tablet 1 tablet = 100 mg, By Mouth, 2 times a day, # 28 tablet, 5 Refills, Maintenance, 05/13/20 14:10:00 EST, [facility], Partial fill upon patient request if the prescription is for a scheduleII opioid drug., 170.1, cm, 03/20/20 10:21:00 EST,... Start Date: 05/13/20 Status: Ordered estradiol 0.1 mg/24 hours twice weekly transdermal film, extended release See Instructions, apply 2 patches the day after retrieval and change QOD, # 32 each, 5 Refills, Maintenance, 05/13/20 14:10:00 EST, [facility], Partial fill upon patient request if the prescription is for a schedule II opioid drug., 170.1,... Start Date: 05/13/20 Status: Ordered Gonal-F 1050 units subcutaneous injection = 300 International_Units, Subcutaneous Infusion, Daily, # 3 kit, 5 Refills, Maintenance, 05/13/20 14:10:00 EST, [facility], Partial fill upon patient request if the prescription is for aschedule II opioid drug., 300 International_Units S... Start Date: 05/13/20 Status: Ordered leuprolide 5 mg/mL subcutaneous solution See Instructions, 10 units sc QD, needs for 05/26, # 1 kit, 5 Refills, Maintenance, 05/13/20 14:13:00 EST, [facility], Partial fill upon patient request if the prescription is for a schedule II opioid drug., 170.1, cm, 03/20/20 10:21:00 EST... Start Date: 05/13/20 Status: Ordered levothyroxine 0.137 mg oral tablet 1 tablet, By Mouth, Daily, # 90 tablet, 3 Refills, Maintenance, 06/19/20 9:24:00 EST, [facility] #[id number], 170.1, cm, 03/20/20 10:21:00 EST, Height, 65.9, kg, 10/29/19 13:03:00 EDT, Dry Weight Start Date: 06/19/20 Status: Ordered Menopur 75 intl units subcutaneous injection = 150 International_Units, Subcutaneous Infusion, Daily, # 25 each, 5 Refills, Maintenance, 05/13/20 14:10:00 EST, [facility], Partial fill upon patient request if the prescription is fora schedule II opioid drug., 170.1, cm, 03/20/20 10:... Start Date: 05/13/20 Status: Ordered Ovidrel 250 mcg/0.5 mL subcutaneous solution = 250 mcg, Subcutaneous Injection, Once, # 1 each, 5 Refills, Soft Stop, 05/13/20 14:10:00 EST, Solution, [facility], Partial fill upon patient request if the prescription is for a schedule II opioid drug., 170.1, cm, 03/20/20 10:21:00 EST... Start Date: 05/13/20 Status: Ordered oxyCODONE 5 mg oral tablet 5 mg, 1, tablet, By Mouth, Every 6 hours, PRN, # 8 tablet, Refills 0, Tot. Refills 0, Maintenance, Pain , Severe, 07/12/20 13:53:00 EST, Route to Pharmacy Electronically, [facility] #[id number],Partial fill upon patient request, 170.1, cm, 03/20... Start Date: 07/12/20 Status: Ordered Multivitamins See Instructions, Takes By Mouth Every other day, 0 Refills, Maintenance, 03/20/20 10:22:00 EST, Partial fill upon patient request Start Date: 03/20/20 Status: Ordered Prometrium 200 mg oral capsule See Instructions, Insert 1 vaginally TID, # 90 capsule, 5 Refills, Maintenance, 05/13/20 14:10:00 EST, [facility], Partial fill upon [...] Stop, 07/12/20 13:53:00 EST, [facility], [facility] #0... Start Date: 07/12/20 Status: Ordered Problem List Condition Effective Dates Status Health Status Inform ant Acquired hypothyroidism(Confirmed) Active Bilateral ovarian cysts(Confirmed) Active Dysmenorrhea(Confirmed) Active Endometriosis, severe(Confirmed) Active Female infertility(Confirmed) Active Social History Social History Type Response Smoking Status Never smoker entered on: 01/19/18 Sex
--- OUTSIDE RECORDS SUMMARY | 2023-04-20 15:16 | XMS_ITS | Continuity of Care Document ---
Author Name Unknown Organization [facility] Address [address] [facility], 4t [address] [place] [address]- Care Team Providers Care Dog Behaviorist Name Role Phone Not on Staff, PCP Primary Care Physician Unavail able Encounter [facility] Date(s): 06/19/20 - 07/19/20 [facility] [address], 4th [address] [place] [id number] Allergies, Adverse Reactions, Alerts Substance Reaction Severity [...] tablet, 0 Refills, Maintenance, 07/12/20 12:08:00 EST, [facility] #[id number], Partial fill upon patient request if the prescription is for a schedule II opioid drug., 1... Start Date: 07/12/20 Stop Date: 07/19/20 Status: Ordered doxycycline hyclate 100 mg oral tablet 1 tablet = 100 mg, By Mouth, 2 times a day, # 28 tablet, 5 Refills, Maintenance, 05/13/20 14:10:00 EST, [facility], Partial fill upon patient request if the prescription is for a scheduleII opioid drug., 170.1, cm, 03/20/20 10:21:00 EST,... Start Date: 05/13/20 Status: Ordered estradiol 0.1 mg/24 hours twice weekly transdermal film, extended release See Instructions, apply 2 patches the day after retrieval and change QOD, # 32 each, 5 Refills, Maintenance, 05/13/20 14:10:00 EST, [facility], Partial fill upon patient request if the prescription is for a schedule II opioid drug., 170.1,... Start Date: 05/13/20 Status: Ordered Gonal-F 1050 units subcutaneous injection = 300 International_Units, Subcutaneous Infusion, Daily, # 3 kit, 5 Refills, Maintenance, 05/13/20 14:10:00 EST, [facility], Partial fill upon patient request if the prescription is for aschedule II opioid drug., 300 International_Units S... Start Date: 05/13/20 Status: Ordered leuprolide 5 mg/mL subcutaneous solution See Instructions, 10 units sc QD, needs for 05/26, # 1 kit, 5 Refills, Maintenance, 05/13/20 14:13:00 EST, [facility], Partial fill upon patient request if the prescription is for a schedule II opioid drug., 170.1, cm, 03/20/20 10:21:00 EST... Start Date: 05/13/20 Status: Ordered levothyroxine 0.137 mg oral tablet 1 tablet, By Mouth, Daily, # 90 tablet, 3 Refills, Maintenance, 06/19/20 9:24:00 EST, [facility] #[id number], 170.1, cm, 03/20/20 10:21:00 EST, Height, 65.9, kg, 10/29/19 13:03:00 EDT, Dry Weight Start Date: 06/19/20 Status: Ordered Menopur 75 intl units subcutaneous injection = 150 International_Units, Subcutaneous Infusion, Daily, # 25 each, 5 Refills, Maintenance, 05/13/20 14:10:00 EST, [facility], Partial fill upon patient request if the prescription is fora schedule II opioid drug., 170.1, cm, 03/20/20 10:... Start Date: 05/13/20 Status: Ordered Ovidrel 250 mcg/0.5 mL subcutaneous solution = 250 mcg, Subcutaneous Injection, Once, # 1 each, 5 Refills, Soft Stop, 05/13/20 14:10:00 EST, Solution, [facility], Partial fill [...] 07/12/20 13:53:00 EST, Route to Pharmacy Electronically, [facility] #[id number],Partial fill upon patient request, 170.1, cm, 03/20... Start Date: 07/12/20 Status: Ordered Multivitamins See Instructions, Takes By Mouth Every other day, 0 Refills, Maintenance, 03/20/20 10:22:00 EST, Partial fill upon patient request Start Date: 03/20/20 Status: Ordered Prometrium 200 mg oral capsule See Instructions, Insert 1 vaginally TID, # 90 capsule, 5 Refills, Maintenance, 05/13/20 14:10:00 EST, [facility], Partial fill [...] Stop, 07/12/20 13:53:00 EST, [facility], [facility] #0... Start Date: 07/12/20 Status: Ordered Problem List Condition Effective Dates Status Health Status Inform ant Acquired hypothyroidism(Confirmed) Active Bilateral ovarian cysts(Confirmed) Active Dysmenorrhea(Confirmed) Active Endometriosis, severe(Confirmed) Active Female infertility(Confirmed) Active Social History Social History Type Response Smoking Status Never smoker entered on: 01/19/18 Sex
--- OUTSIDE RECORDS SUMMARY | 2023-04-20 15:16 | XMS_ITS | Continuity of Care Document ---
Author Name Unknown Organization [facility] ter Address [address] [place] [address]- Care Team Providers Care Semiconductor Bonder Name Role Phone Cristal Garrido MD Primary Care Physician Encounter [facility] Date(s): 08/18/20 - 08/18/[address] [address]- Discharge Disposition: A-D/C Home Attending Physician: Radha Valenzuela MD Admitting Physician: Radha Valenzuela MD Referring Physician: Radha Valenzuela MD Allergies, [...] tablet, 3 Refills, Maintenance, 06/19/20 9:24:00 EST, [facility] #[id number], 170.1, cm, 03/20/20 10:21:00 EST, Height, 65.9, [...] mL, 5 Refills, Maintenance, 08/18/20 17:36:00 EDT, [facility], Partial fill upon patient request if the prescription is for a schedule II opioid drug., 170.1, cm, 08/04/20 7:44:0... Start Date: 08/18/20 Status: Ordered Prometrium 200 mg oral capsule See Instructions, Insert 1 vaginally TID, # 90 capsule, 5 Refills, Maintenance, 05/13/20 14:10:00 EST, [facility], Partial fill upon patient [...]
--- OUTSIDE RECORDS SUMMARY | 2023-04-20 15:16 | XMS_ITS | Continuity of Care Document ---
Author Name Unknown Organization [email or web address] Address [address] [facility], [address] [place] [address]- Care Team Providers Care Admissions Consultant Name Role Phone Cristal Garrido MD Primary Care Physician Encounter [facility] Date(s): 07/28/20 - 08/27/20 [facility] [address] [facility], 4th [place], [place] [address] Allergies, Adverse Reactions, Alerts Substance Reaction Severity [...] tablet, 3 Refills, Maintenance, 06/19/20 9:24:00 EST, [facility] #[id number], 170.1, cm, 03/20/20 10:21:00 EST, Height, 65.9, [...] mL, 5 Refills, Maintenance, 08/18/20 17:36:00 EDT, [facility], Partial fill upon patient request if the prescription is for a schedule II opioid drug., 170.1, cm, 08/04/20 7:44:0... Start Date: 08/18/20 Status: Ordered Prometrium 200 mg oral capsule See Instructions, Insert 1 vaginally TID, # 90 capsule, 5 Refills, Maintenance, 05/13/20 14:10:00 EST, [facility], Partial fill upon patient [...]
--- OUTSIDE RECORDS SUMMARY | 2023-04-20 15:16 | XMS_ITS | Continuity of Care Document ---
Author Name Unknown Organization [facility] Address [address] [facility], 4t [address] [place] [address]- Care Team Providers Care Line Service Person Name Role Phone Radhika HERNANDEZ, Cristal Primary Care Physician [phone] Encounter [facility] Date(s): 08/05/20 - 09/04/20 [facility] [address] [employer], 4th [address] [place] [address]- Allergies, Adverse Reactions, Alerts Substance Reaction Severity [...] 90 tablet, 3 Refills, Maintenance, 06/19/20 9:24:00 [id number], 170.1, cm, 03/20/20 10:21:00 EST, Height, 65.9, [...] mL, 5 Refills, Maintenance, 08/18/20 17:36:00 EDT, [facility], Partial fill upon patient request if the prescription is for a schedule II opioid drug., 170.1, cm, 08/04/20 7:44:0... Start Date: 08/18/20 Status: Ordered Prometrium 200 mg oral capsule See Instructions, Insert 1 vaginally TID, # 90 capsule, 5 Refills, Maintenance, 05/13/20 14:10:00 EST, [facility], Partial fill [...]
--- OUTSIDE RECORDS SUMMARY | 2023-04-20 15:16 | XMS_ITS | Continuity of Care Document ---
Author Name Unknown Organization [facility] Address [address] [facility], 4t [address] [place] [address]- Care Team Providers Care Car Distributor Name Role Phone Not on Staff, PCP Primary Care Physician Unavail able [place] [facility] [place](s): 07/09/20 - 07/16/20 [facility] [address], 4th [address] [place] [address]- Attending Physician: Eneida Villanueva MD Referring Physician: Cristal Garrido MD Allergies, Adverse Reactions, Alerts Substance Reaction Severity Status Dust Active Medications 0.5cc insulin syringes 0.5cc insulin syringes, See Instructions, # 10 each, Refills 5, Tot. Refills 5, Maintenance, use with lupron; pt already has this medication, 07/04/20 11:27:00 EST, Compound, 170.1, cm, 03/20/20 10:21:00 EST, Height, 65.9, kg, 10/29/19 13:03:00 EDT D... Start Date: 07/04/20 Status: Ordered cabergoline 0.5 mg oral tablet 1 tablet = 0.5 mg, By Mouth, Daily, Begin 2 hours before hCG injection, # 7 tablet, 0 Refills, Maintenance, 07/12/20 12:08:00 EST, [facility] #[id number], Partial fill upon patient request if the prescription is for a schedule II opioid drug., 1... Start Date: 07/12/20 Stop Date: 07/19/20 Status: Ordered doxycycline hyclate 100 mg oral tablet 1 tablet = 100 mg, By Mouth, 2 times a day, # 28 tablet, 5 Refills, Maintenance, 05/13/20 14:10:00 EST, [facility], Partial fill upon patient request if the prescription is for a scheduleII opioid drug., 170.1, cm, 03/20/20 10:21:00 EST,... Start Date: 05/13/20 Status: Ordered estradiol 0.1 mg/24 hours twice weekly transdermal film, extended release See Instructions, apply 2 patches the day after retrieval and change QOD, # 32 each, 5 Refills, Maintenance, 05/13/20 14:10:00 EST, [facility], Partial fill upon patient request if the prescription is for a schedule II opioid drug., 170.1,... Start Date: 05/13/20 Status: Ordered Gonal-F 1050 units subcutaneous injection = 300 International_Units, Subcutaneous Infusion, Daily, # 3 kit, 5 Refills, Maintenance, 05/13/20 14:10:00 EST, [facility], Partial fill upon patient request if the prescription is for aschedule II opioid drug., 300 International_Units S... Start Date: 05/13/20 Status: Ordered leuprolide 5 mg/mL subcutaneous solution See Instructions, 10 units sc QD, needs for 05/26, # 1 kit, 5 Refills, Maintenance, 05/13/20 14:13:00 EST, [facility], Partial fill upon patient request if the prescription is for a schedule II opioid drug., 170.1, cm, 03/20/20 10:21:00 EST... Start Date: 05/13/20 Status: Ordered levothyroxine 0.137 mg oral tablet 1 tablet, By Mouth, Daily, # 90 tablet, 3 Refills, Maintenance, 06/19/20 9:24:00 EST, [facility] #[id number], 170.1, cm, 03/20/20 10:21:00 EST, Height, 65.9, kg, 10/29/19 13:03:00 EDT, Dry Weight Start Date: 06/19/20 Status: Ordered Menopur 75 intl units subcutaneous injection = 150 International_Units, Subcutaneous Infusion, Daily, # 25 each, 5 Refills, Maintenance, 05/13/20 14:10:00 EST, [facility], Partial fill upon patient request if the prescription is fora schedule II opioid drug., 170.1, cm, 03/20/20 10:... Start Date: 05/13/20 Status: Ordered Ovidrel 250 mcg/0.5 mL subcutaneous solution = 250 mcg, Subcutaneous Injection, Once, # 1 each, 5 Refills, Soft Stop, 05/13/20 14:10:00 EST, Solution, [facility], Partial fill upon patient request if the prescription is for a schedule II opioid drug., 170.1, cm, 03/20/20 10:21:00 EST... Start Date: 05/13/20 Status: Ordered oxyCODONE 5 mg oral tablet 5 mg, 1, tablet, By Mouth, Every 6 hours, PRN, # 8 tablet, Refills 0, Tot. Refills 0, Maintenance, Pain , Severe, 07/12/20 13:53:00 EST, Route to Pharmacy Electronically, [facility] #[id number],Partial fill upon patient request, 170.1, cm, 03/20... Start Date: 07/12/20 Status: Ordered Multivitamins See Instructions, Takes By Mouth Every other day, 0 Refills, Maintenance, 03/20/20 10:22:00 EST, Partial fill upon patient request Start Date: 03/20/20 Status: Ordered Prometrium 200 mg oral capsule See Instructions, Insert 1 vaginally TID, # 90 capsule, 5 Refills, Maintenance, 05/13/20 14:10:00 EST, [facility], Partial fill upon patient [...] Stop, 07/12/20 13:53:00 EST, [facility], [facility] #0... Start Date: 07/12/20 Status: Ordered Problem List Condition Effective Dates Status Health Status Inform ant Acquired hypothyroidism(Confirmed) Active Bilateral ovarian cysts(Confirmed) Active Dysmenorrhea(Confirmed) Active Endometriosis, severe(Confirmed) Active Female infertility(Confirmed) Active Social History Social History Type Response Smoking Status Never smoker entered on: 01/19/18 Sex
--- OUTSIDE RECORDS SUMMARY | 2023-04-20 15:16 | XMS_ITS | Continuity of Care Document ---
Author Name Unknown Organization [facility] Address [address] [facility], 4t [address] [place] [address]- Care Team Providers Care Laborer Chicken Farm Name Role Phone Not on Staff, PCP Primary Care Physician Unavail able En[place] [facility] Date(s): 07/15/20 - 08/14/20 [facility] [address] [facility], 4th [address] [place] [id number] Allergies, Adverse Reactions, Alerts Substance [...] tablet, 0 Refills, Maintenance, 07/12/20 12:08:00 EST, [facility] #[id number], Partial fill upon patient request if the prescription is for a schedule II opioid drug., 1... Start Date: 07/12/20 Stop Date: 07/19/20 Status: Ordered doxycycline hyclate 100 mg oral tablet 1 tablet = 100 mg, By Mouth, 2 times a day, # 28 tablet, 5 Refills, Maintenance, 05/13/20 14:10:00 EST, [facility], Partial fill upon patient request if the prescription is for a scheduleII opioid drug., 170.1, cm, 03/20/20 10:21:00 EST,... Start Date: 05/13/20 Status: Ordered estradiol 0.1 mg/24 hours twice weekly transdermal film, extended release See Instructions, apply 2 patches the day after retrieval and change QOD, # 32 each, 5 Refills, Maintenance, 05/13/20 14:10:00 EST, [facility], Partial fill upon patient request if the prescription is for a schedule II opioid drug., 170.1,... Start Date: 05/13/20 Status: Ordered Gonal-F 1050 units subcutaneous injection = 300 International_Units, Subcutaneous Infusion, Daily, # 3 kit, 5 Refills, Maintenance, 05/13/20 14:10:00 EST, [facility], Partial fill upon patient request if the prescription is for aschedule II opioid drug., 300 International_Units S... Start Date: 05/13/20 Status: Ordered leuprolide 5 mg/mL subcutaneous solution See Instructions, 10 units sc QD, needs for 05/26, # 1 kit, 5 Refills, Maintenance, 05/13/20 14:13:00 EST, [facility], Partial fill upon patient request if the prescription is for a schedule II opioid drug., 170.1, cm, 03/20/20 10:21:00 EST... Start Date: 05/13/20 Status: Ordered levothyroxine 0.137 mg oral tablet 1 tablet, By Mouth, Daily, # 90 tablet, 3 Refills, Maintenance, 06/19/20 9:24:00 EST, [facility] #[id number], 170.1, cm, 03/20/20 10:21:00 EST, Height, 65.9, kg, 10/29/19 13:03:00 EDT, Dry Weight Start Date: 06/19/20 Status: Ordered Menopur 75 intl units subcutaneous injection = 150 International_Units, Subcutaneous Infusion, Daily, # 25 each, 5 Refills, Maintenance, 05/13/20 14:10:00 EST, [facility], Partial fill upon patient request if the prescription is fora schedule II opioid drug., 170.1, cm, 03/20/20 10:... Start Date: 05/13/20 Status: Ordered Ovidrel 250 mcg/0.5 mL subcutaneous solution = 250 mcg, Subcutaneous Injection, Once, # 1 each, 5 Refills, Soft Stop, 05/13/20 14:10:00 EST, Solution, [facility], Partial fill [...] 07/12/20 13:53:00 EST, Route to Pharmacy Electronically, [facility] #[id number],Partial fill upon patient request, 170.1, cm, 03/20... Start Date: 07/12/20 Status: Ordered Multivitamins See Instructions, Takes By Mouth Every other day, 0 Refills, Maintenance, 03/20/20 10:22:00 EST, Partial fill upon patient request Start Date: 03/20/20 Status: Ordered Prometrium 200 mg oral capsule See Instructions, Insert 1 vaginally TID, # 90 capsule, 5 Refills, Maintenance, 05/13/20 14:10:00 EST, [facility], Partial fill [...] Stop, 07/12/20 13:53:00 EST, [facility], [facility] #0... Start Date: 07/12/20 Status: Ordered Problem List Condition Effective Dates Status Health Status Inform ant Acquired hypothyroidism(Confirmed) Active Bilateral ovarian cysts(Confirmed) Active Dysmenorrhea(Confirmed) Active Endometriosis, severe(Confirmed) Active Female infertility(Confirmed) Active Social History Social History Type Response Smoking Status Never smoker entered on: 01/19/18 Sex
--- OUTSIDE RECORDS SUMMARY | 2023-04-20 15:16 | XMS_ITS | Continuity of Care Document ---
Author Name Unknown Organization [facility] Address [address] [facility], [address] [place] [address]- Care Team Providers Care Power Project Manager Name Role Phone Cristal Garrido MD Primary Care Physician En[place] [facility] [place] Date(s): 07/29/20 - 08/28/20 [facility] [address] [facility], [address] [place], [place] [address] Allergies, Adverse Reactions, Alerts Substance Reaction [...] tablet, 3 Refills, Maintenance, 06/19/20 9:24:00 EST, [facility] #[id number], 170.1, cm, 03/20/20 10:21:00 EST, Height, 65.9, [...] mL, 5 Refills, Maintenance, 08/18/20 17:36:00 EDT, [facility], Partial fill upon patient request if the prescription is for a schedule II opioid drug., 170.1, cm, 08/04/20 7:44:0... Start Date: 08/18/20 Status: Ordered Prometrium 200 mg oral capsule See Instructions, Insert 1 vaginally TID, # 90 capsule, 5 Refills, Maintenance, 05/13/20 14:10:00 EST, [facility], Partial fill upon patient request [...]
--- OUTSIDE RECORDS SUMMARY | 2023-04-20 15:16 | XMS_ITS | Continuity of Care Document ---
Author Name Unknown Organization [facility] Address [address] [place] [address]- Care Team Providers Care Assisted Living Home Director Name Role Phone Cristal Garrido MD Primary Care Physician [phone] [place] [facility] [place] 11/[place]21 - 12/20/21 [facility] [address] [place] [id number] Attending Physician: Loulou Rob Admitting Physician: AdmLoulou okeefe Referring Physician: AdmtrLoulou Allergies, Adverse Reactions, Alerts Substance Reaction Severity Status Dust Active Immunizations Given and Recorded Vaccine Date Status Refusal Reason SARS-CoV-2 (COVID-19) Ad26 vaccine 01/16/21 Given Medications levothyroxine 0.137 mg oral tablet 1 tablet, By Mouth, Daily, # 90 tablet, 3 Refills, Maintenance, 06/19/20 9:24:00 EST, [facility] #[id number], 170.1, cm, 03/20/20 10:21:00 EST, Height, 65.9, [...]
--- OUTSIDE RECORDS SUMMARY | 2023-04-20 15:16 | XMS_ITS | Continuity of Care Document ---
Author Name Unknown Organization [facility] Address [address], 4t [address] [place] [address]- Care Team Providers Care Workday Senior Associate Name Role Phone Radhika HERNANDEZ, Cristal Primary Care Physician [place] [facility] [place]/20 - 10/23/20 [facility] [address], [address]th [address] [place] [id number] Allergies, Adverse Reactions, Alerts Substance Reaction [...] tablet, 3 Refills, Maintenance, 06/19/20 9:24:00 EST, [facility] #[id number], 170.1, cm, 03/20/20 10:21:00 EST, Height, 65.9, [...] mL, 5 Refills, Maintenance, 08/18/20 17:36:00 EDT, [facility], Partial fill upon patient [...]
--- OUTSIDE RECORDS SUMMARY | 2023-04-20 15:16 | XMS_ITS | Continuity of Care Document ---
Author Name Unknown Organization [facility] Address [address] [facility], 4t [address] [place] [address]- Care Team Providers Care Molder Shoulder Pad Name Role Phone Not on Staff, PCP Primary Care Physician Unavail able Encounter [facility] [place] Date(s): 02/01/20 - 03/02/20 [facility] [address] [facility], 4th [address] [place] [address]- [facility] Allergies, Adverse Reactions, Alerts Substance Reaction Severity Status NKA Active Medications levothyroxine 125 mcg (0.125 mg) oral capsule 1 capsule = 125 mcg, By Mouth, Daily, # 90 capsule, 4 Refills, Maintenance, 01/10/20 14:39:00 EDT, Capsule, [facility], Please cancel 112mcg script, her dose has been increased to 125mcg, 170.1, cm, 11/20/19 8:06:00 EDT, Height, 65.9... Start Date: 01/10/20 Status: Ordered levothyroxine 125 mcg (0.125 mg) oral capsule 1 capsule = 125 mcg, By Mouth, Daily, # 30 capsule, 1 Refills, Maintenance, 01/10/20 14:41:00 EDT, Capsule, [facility] #[id number], Please cancel 112mcg script, her dose has been increased to 125mcg, 170.1, cm, 11/20/19 8:06:00 EDT, Height, 65.9,... Start Date: 01/10/20 Status: Ordered Problem List Condition Effective Dates Status Health Status Inform ant Acquired hypothyroidism(Confirmed) Active Bilateral ovarian cysts(Confirmed) Active Dysmenorrhea(Confirmed) Active Endometriosis, severe(Confirmed) Active Female infertility(Confirmed) Active Social History Social History Type Response Smoking Status Never smoker entered on: 01/19/18 Sex
--- OUTSIDE RECORDS SUMMARY | 2023-04-20 15:16 | XMS_ITS | Continuity of Care Document ---
Author Name Unknown Organization [facility] Address [address] [facility], 4t [address] [place] [address]- Care Team Providers Care Facility Engineer Name Role Phone Not on Staff, PCP Primary Care Physician Unavail able Encounter [facility] Date(s): 03/20/20 - 04/19/20 [facility] [address] [facility], 4th [address] [place], [place] [address] Attending Physician: Loulou Rob Admitting Physician: Loulou Rob Referring Physician: AdmtrLoulou Allergies, Adverse Reactions, Alerts Substance Reaction Severity Status Dust Active Medications levothyroxine 137 mcg (0.137 mg) oral capsule 1 capsule = 137 mcg, By Mouth, Daily, # 30 capsule, 2 Refills, Maintenance, 03/25/20 16:29:00 EST, Capsule, [facility] #[id number], Partial fill upon patient request, 170.1, cm, 03/20/20 10:21:00 EST, Height, 65.9, kg, 10/29/19 13:03:00 EDT, Dry... Start Date: 03/25/20 Status: Ordered Multivitamins See Instructions, Takes By [...]
--- OUTSIDE RECORDS SUMMARY | 2023-04-20 15:16 | XMS_ITS | Continuity of Care Document ---
Author Name Unknown Organization [facility] Address [address] [facility], 4t [address] Floor [address] [place] [address]- Care Team Providers Care Cisco Consultant Name Role Phone Cristal Garrido MD Primary Care Physician [phone] Encounter [facility] [place] Date(s): 07/28/20 - 08/27/20 [facility] [address] [facility], 4th [address] [place] [address]- Allergies, Adverse Reactions, Alerts Substance Reaction Severity [...] 90 tablet, 3 Refills, Maintenance, 06/19/20 9:24:00 [facility], [facility] #[id number], 170.1, cm, 03/20/20 10:21:00 EST, Height, 65.9, [...] 5 Refills, Maintenance, 08/18/20 17:36:00 EDT, [facility], Partial fill upon patient request if the prescription is for a schedule II opioid drug., 170.1, cm, 08/04/20 7:44:0... Start Date: 08/18/20 Status: Ordered Prometrium 200 mg oral capsule See Instructions, Insert 1 vaginally TID, # 90 capsule, 5 Refills, Maintenance, 05/13/20 14:10:00 EST, [facility], Partial fill upon patient [...]
--- OUTSIDE RECORDS SUMMARY | 2023-04-20 15:16 | XMS_ITS | Continuity of Care Document ---
Author Name Unknown Organization [facility] Address [address] [facility], 4t [address] [place] [address]- Care Team Providers Care Baseball Club Manager Name Role Phone Not on Staff, PCP Primary Care Physician Unavail able Encounter [facility] Date(s): 12/06/19 - 01/05/20 [facility] [address] [facility], 4th [address] [place] [address] [facility] Allergies, Adverse Reactions, Alerts Substance Reaction Severity Status NKA Active Medications levothyroxine 0.112 mg oral tablet 1 tablet = 112 mcg, By Mouth, Daily, # 30 tablet, 6 Refills, Maintenance, 10/02/19 10:59:00 EDT, Tablet, [facility], 170.18, cm, 09/19/19 12:02:00 EDT, Height Start Date: 10/02/19 Status: Ordered Problem List Condition Effective Dates Status Health Status Inform ant Acquired hypothyroidism(Confirmed) Active Bilateral ovarian cysts(Confirmed) Active Dysmenorrhea(Confirmed) Active Endometriosis, severe(Confirmed) Active Female infertility(Confirmed) Active Social History Social History Type Response Smoking Status Never smoker entered on: 01/19/18 Sex
--- OUTSIDE RECORDS SUMMARY | 2023-04-20 15:16 | XMS_ITS | Continuity of Care Document ---
Author Name Unknown Organization [facility] e Medicine Address [address] [facility], 4t [address] [place] [address]- Care Team Providers Care Atmospheric Physics Professor Name Role Phone Not on Staff, PCP Primary Care Physician Unavail able Encounter [facility] Date(s): 04/01/20 - 05/01/20 [facility] [address], 4th [address] [place] [id number] Allergies, Adverse Reactions, Alerts Substance Reaction Severity Status Dust Active Medications levothyroxine 137 mcg (0.137 mg) oral capsule 1 capsule = 137 mcg, By Mouth, Daily, # 30 capsule, 2 Refills, Maintenance, 03/25/20 16:29:00 EST, Capsule, [facility] #[id number], Partial fill upon patient request, 170.1, cm, [...]
--- OUTSIDE RECORDS SUMMARY | 2023-04-20 15:16 | XMS_ITS | Continuity of Care Document ---
Author Name Unknown Organization [facility] Address [address] [place] [address]- Care Team Providers Care Utilization Manager Name Role Phone Radhika HERNANDEZ, Cristal Primary Care Physician [phone] [place] [facility] [place] 05/[place]/21 - 06/03/21 [facility] [address] [place] [address]- Attending Physician: Benny HERNANDEZ, Gil Gimenez Admitting Physician: Gil Zapata MD Referring Physician: Stephanie HERNANDEZ, Mario Allergies, Adverse Reactions, Alerts Substance Reaction Severity Status Dust Active Immunizations Given and Recorded Vaccine Date Status Refusal Reason SARS-CoV-2 (COVID-19) Ad26 vaccine 01/16/21 Given Medications levothyroxine 0.137 mg oral tablet 1 tablet, By Mouth, Daily, # 90 tablet, 3 Refills, Maintenance, 06/19/20 9:24:00 EST, [facility] #[id number], 170.1, cm, 03/20/20 10:21:00 EST, Height, 65.9, [...]
--- OUTSIDE RECORDS SUMMARY | 2023-04-20 15:16 | XMS_ITS | Continuity of Care Document ---
Author Name Unknown Organization [facility] Address [address] [place] [address]- Care Team Providers Care Keg Raiser Name Role Phone Cristal Garrido MD Primary Care Physician [phone] [place] [facility] [place](s): 12/30/20 - 01/29/21 [facility] [address] [place] [address]- Attending Physician: Loulou Rob Admitting Physician: AdmtrLoulou Referring Physician: Admtr, ArDanita Allergies, Adverse Reactions, Alerts Substance Reaction Severity Status Dust Active Immunizations Given and Recorded Vaccine Date Status Refusal Reason SARS-CoV-2 (COVID-19) Ad26 vaccine 01/16/21 Given Medications Colace sodium 100 mg oral capsule 100 mg, 1, capsule, By Mouth, 2 times a day, # 60 capsule, Refills 0, Tot. Refills 0, Maintenance, 01/16/21 5:11:00 EDT, Route to Pharmacy Electronically, [facility], Partial fill upon patient request if the prescription is for a schedul... Start Date: 01/16/21 Status: Ordered enoxaparin 120 mg/0.8 mL injectable solution 0.7 mL = 105 mg, Subcutaneous Injection, Every 24 hours, for 21 days, # 14.7 mL, 0 Refills, Acute 02/06/21 5:11:00 EDT, 01/16/21 5:11:00 EDT, Injection, [facility], Partial fill upon patient request if the prescription is for a schedule... Start Date: 01/16/21 Stop Date: 02/06/21 Status: Ordered levothyroxine 0.137 mg oral tablet 1 tablet, By Mouth, Daily, # 90 tablet, 3 Refills, Maintenance, 06/19/20 9:24:00 EST, [facility] #[id number], 170.1, cm, 03/20/20 10:21:00 EST, Height, 65.9, kg, 10/29/19 13:03:00 EDT, Dry Weight Start Date: 06/19/20 Status: Ordered oxyCODONE 5 mg oral tablet 5 mg, 1, tablet, By Mouth, Every 6 hours, PRN, # 12 tablet, Refills 0, Tot. Refills 0, Maintenance,as needed for pain, 01/16/21 5:12:00 EDT, Route to Pharmacy Electronically, [facility], Partial fill upon patient request, 170, cm, 01/16... Start Date: 01/16/21 Status: Ordered Multivitamins See Instructions, Takes By Mouth Every other day, 0 Refills, Maintenance, 03/20/20 10:22:00 EST, Partial fill upon patient request Start Date: 03/20/20 Status: Ordered simethicone 80 mg oral tablet, chewable 80 mg, Chew, 3 times a day, PRN, # 36 tablet, Refills 0, Tot. Refills 0, Maintenance, Gas, 215:11:00 EDT, Route to Pharmacy Electronically, [facility], Partial fill upon patient request if the prescription is for a schedule II opi... Start Date: 01/16/21 Status: Ordered Tylenol 325 mg oral tablet 975 mg, 3, tablet, By Mouth, Every 6 hours, PRN, # 12 tablet, Refills 0, Tot. Refills 0, Maintenance, Pain , Moderate, 01/16/21 5:11:00 EDT, Route to Pharmacy Electronically, [facility], Partial fill upon patient request if the prescript... Start Date: 01/16/21 Status: Ordered Problem List Condition Effective Dates Status Health Status Inform ant Acquired hypothyroidism(Confirmed) Active Bilateral ovarian cysts(Confirmed) Active Dysmenorrhea(Confirmed) Active Endometriosis, severe(Confirmed) Active Female infertility(Confirmed) Active Social History Social History Type Response Smoking Status Never smoker entered on: 01/19/18 Sex
--- OUTSIDE RECORDS SUMMARY | 2023-04-20 15:16 | XMS_ITS | Continuity of Care Document ---
Author Name Unknown Organization [facility] e Medicine Address [address] [facility], 4t [address] [place] [address]- Care Team Providers Care Inspector Crystal Name Role Phone Not on Staff, PCP Primary Care Physician Unavail able Encounter [facility] Date(s): 04/04/20 - 05/04/20 [facility] [address], 4th [address] [place] [id number] Allergies, Adverse Reactions, Alerts Substance Reaction Severity Status Dust Active Medications levothyroxine 137 mcg (0.137 mg) oral capsule 1 capsule = 137 mcg, By Mouth, Daily, # 30 capsule, 2 Refills, Maintenance, 03/25/20 16:29:00 EST, Capsule, [facility] #[id number], Partial fill upon patient request, 170.1, cm, [...]
--- OUTSIDE RECORDS SUMMARY | 2023-04-20 15:16 | XMS_ITS | Continuity of Care Document ---
Author Name Unknown Organization [facility] Address [address] [facility], 4t [address] [place] [address]- Care Team Providers Care Learning And Development Officer Name Role Phone Not on Staff, PCP Primary Care Physician Unavail able Encounter [facility] [place] Date(s): 07/01/20 - 07/31/20 [facility] [address], 4th [address] [place] [id number] Allergies, Adverse Reactions, Alerts Substance Reaction Severity [...] tablet, 0 Refills, Maintenance, 07/12/20 12:08:00 EST, [facility] #[id number], Partial fill upon patient request if the prescription is for a schedule II opioid drug., 1... Start Date: 07/12/20 Stop Date: 07/19/20 Status: Ordered doxycycline hyclate 100 mg oral tablet 1 tablet = 100 mg, By Mouth, 2 times a day, # 28 tablet, 5 Refills, Maintenance, 05/13/20 14:10:00 EST, [facility], Partial fill upon patient request if the prescription is for a scheduleII opioid drug., 170.1, cm, 03/20/20 10:21:00 EST,... Start Date: 05/13/20 Status: Ordered estradiol 0.1 mg/24 hours twice weekly transdermal film, extended release See Instructions, apply 2 patches the day after retrieval and change QOD, # 32 each, 5 Refills, Maintenance, 05/13/20 14:10:00 EST, [facility], Partial fill upon patient request if the prescription is for a schedule II opioid drug., 170.1,... Start Date: 05/13/20 Status: Ordered Gonal-F 1050 units subcutaneous injection = 300 International_Units, Subcutaneous Infusion, Daily, # 3 kit, 5 Refills, Maintenance, 05/13/20 14:10:00 EST, [facility], Partial fill upon patient request if the prescription is for aschedule II opioid drug., 300 International_Units S... Start Date: 05/13/20 Status: Ordered leuprolide 5 mg/mL subcutaneous solution See Instructions, 10 units sc QD, needs for 05/26, # 1 kit, 5 Refills, Maintenance, 05/13/20 14:13:00 EST, [facility], Partial fill upon patient request if the prescription is for a schedule II opioid drug., 170.1, cm, 03/20/20 10:21:00 EST... Start Date: 05/13/20 Status: Ordered levothyroxine 0.137 mg oral tablet 1 tablet, By Mouth, Daily, # 90 tablet, 3 Refills, Maintenance, 06/19/20 9:24:00 EST, [facility] #[id number], 170.1, cm, 03/20/20 10:21:00 EST, Height, 65.9, kg, 10/29/19 13:03:00 EDT, Dry Weight Start Date: 06/19/20 Status: Ordered Menopur 75 intl units subcutaneous injection = 150 International_Units, Subcutaneous Infusion, Daily, # 25 each, 5 Refills, Maintenance, 05/13/20 14:10:00 EST, [facility], Partial fill upon patient request if the prescription is fora schedule II opioid drug., 170.1, cm, 03/20/20 10:... Start Date: 05/13/20 Status: Ordered Ovidrel 250 mcg/0.5 mL subcutaneous solution = 250 mcg, Subcutaneous Injection, Once, # 1 each, 5 Refills, Soft Stop, 05/13/20 14:10:00 EST, Solution, [facility], Partial fill upon patient request if the prescription is for a schedule II opioid drug., 170.1, cm, 03/20/20 10:21:00 EST... Start Date: 05/13/20 Status: Ordered oxyCODONE 5 mg oral tablet 5 mg, 1, tablet, By Mouth, Every 6 hours, PRN, # 8 tablet, Refills 0, Tot. Refills 0, Maintenance, Pain , Severe, 07/12/20 13:53:00 EST, Route to Pharmacy Electronically, [facility] #[id number],Partial fill upon patient request, 170.1, cm, 03/20... Start Date: 07/12/20 Status: Ordered Multivitamins See Instructions, Takes By Mouth Every other day, 0 Refills, Maintenance, 03/20/20 10:22:00 EST, Partial fill upon patient request Start Date: 03/20/20 Status: Ordered Prometrium 200 mg oral capsule See Instructions, Insert 1 vaginally TID, # 90 capsule, 5 Refills, Maintenance, 05/13/20 14:10:00 EST, [facility], Partial fill upon [...] Stop, 07/12/20 13:53:00 EST, [facility], [facility]... Start Date: 07/12/20 Status: Ordered Problem List Condition Effective Dates Status Health Status Inform ant Acquired hypothyroidism(Confirmed) Active Bilateral ovarian cysts(Confirmed) Active Dysmenorrhea(Confirmed) Active Endometriosis, severe(Confirmed) Active Female infertility(Confirmed) Active Social History Social History Type Response Smoking Status Never smoker entered on: 01/19/18 Sex
--- OUTSIDE RECORDS SUMMARY | 2023-04-20 15:16 | XMS_ITS | Continuity of Care Document ---
Author Name Unknown Organization [facility] Address [address] [place] [address], [place] [address]- Care Team Providers Care Transfer Worker Name Role Phone Not on Staff, PCP Primary Care Physician Unavail able [place] [facility] [place]/20 - [facility] [address] [facility], [address] [place] [address]- Allergies, Adverse Reactions, Alerts Substance Reaction Severity Status Dust Active Medications doxycycline hyclate 100 mg oral tablet 1 tablet = 100 mg, By Mouth, 2 times a day, # 28 tablet, 5 Refills, Maintenance, 05/13/20 14:10:00 EST, [facility], Partial fill upon patient request if the prescription is for a scheduleII opioid drug., 170.1, cm, 03/20/20 10:21:00 EST,... Start Date: 05/13/20 Status: Ordered estradiol 0.1 mg/24 hours twice weekly transdermal film, extended release See Instructions, apply 2 patches the day after retrieval and change QOD, # 32 each, 5 Refills, Maintenance, 05/13/20 14:10:00 EST, [facility], Partial fill upon patient request if the prescription is for a schedule II opioid drug., 170.1,... Start Date: 05/13/20 Status: Ordered Gonal-F 1050 units subcutaneous injection = 300 International_Units, Subcutaneous Infusion, Daily, # 3 kit, 5 Refills, Maintenance, 05/13/20 14:10:00 EST, [facility], Partial fill upon patient request if the prescription is for aschedule II opioid drug., 300 International_Units S... Start Date: 05/13/20 Status: Ordered leuprolide 5 mg/mL subcutaneous solution See Instructions, 10 units sc QD, needs for 05/26, # 1 kit, 5 Refills, Maintenance, 05/13/20 14:13:00 EST, [facility], Partial fill upon patient request if the prescription is for a schedule II opioid drug., 170.1, cm, 03/20/20 10:21:00 EST... Start Date: 05/13/20 Status: Ordered levothyroxine 0.137 mg oral tablet 1 tablet, By Mouth, Daily, # 90 tablet, 3 Refills, Maintenance, 06/19/20 9:24:00 EST, [facility] #[id number], 170.1, cm, 03/20/20 10:21:00 EST, Height, 65.9, kg, 10/29/19 13:03:00 EDT, Dry Weight Start Date: 06/19/20 Status: Ordered Menopur 75 intl units subcutaneous injection = 150 International_Units, Subcutaneous Infusion, Daily, # 25 each, 5 Refills, Maintenance, 05/13/20 14:10:00 EST, [facility], Partial fill upon patient request if the prescription is fora schedule II opioid drug., 170.1, cm, 03/20/20 10:... Start Date: 05/13/20 Status: Ordered Ovidrel 250 mcg/0.5 mL subcutaneous solution = 250 mcg, Subcutaneous Injection, Once, # 1 each, 5 Refills, Soft Stop, 05/13/20 14:10:00 EST, Solution, [facility], Partial fill upon patient request [...] capsule, 5 Refills, Maintenance, 05/13/20 14:10:00 EST, [facility], Partial fill upon patient request [...]
--- OUTSIDE RECORDS SUMMARY | 2023-04-20 15:16 | XMS_ITS | Continuity of Care Document ---
Author Name Unknown Organization [facility] Payam foreman [facility] Address [address] [place] [address]- Care Team Providers Care Fruit Shipper Name Role Phone Not on Staff, PCP Primary Care Physician Unavail able Encounter [place] Date(s): 07/01/20 - 07/31/20 [facility] [address] [place], [place] [address] Allergies, Adverse Reactions, Alerts Substance Reaction [...] tablet, 0 Refills, Maintenance, 07/12/20 12:08:00 EST, [facility] #[id number], Partial fill upon patient request if the prescription is for a schedule II opioid drug., 1... Start Date: 07/12/20 Stop Date: 07/19/20 Status: Ordered doxycycline hyclate 100 mg oral tablet 1 tablet = 100 mg, By Mouth, 2 times a day, # 28 tablet, 5 Refills, Maintenance, 05/13/20 14:10:00 EST, [facility], Partial fill upon patient request if the prescription is for a scheduleII opioid drug., 170.1, cm, 03/20/20 10:21:00 EST,... Start Date: 05/13/20 Status: Ordered estradiol 0.1 mg/24 hours twice weekly transdermal film, extended release See Instructions, apply 2 patches the day after retrieval and change QOD, # 32 each, 5 Refills, Maintenance, 05/13/20 14:10:00 EST, [facility], Partial fill upon patient request if the prescription is for a schedule II opioid drug., 170.1,... Start Date: 05/13/20 Status: Ordered Gonal-F 1050 units subcutaneous injection = 300 International_Units, Subcutaneous Infusion, Daily, # 3 kit, 5 Refills, Maintenance, 05/13/20 14:10:00 EST, [facility], Partial fill upon patient request if the prescription is for aschedule II opioid drug., 300 International_Units S... Start Date: 05/13/20 Status: Ordered leuprolide 5 mg/mL subcutaneous solution See Instructions, 10 units sc QD, needs for 05/26, # 1 kit, 5 Refills, Maintenance, 05/13/20 14:13:00 EST, [facility], Partial fill upon patient request if the prescription is for a schedule II opioid drug., 170.1, cm, 03/20/20 10:21:00 EST... Start Date: 05/13/20 Status: Ordered levothyroxine 0.137 mg oral tablet 1 tablet, By Mouth, Daily, # 90 tablet, 3 Refills, Maintenance, 06/19/20 9:24:00 EST, [facility] #[id number], 170.1, cm, 03/20/20 10:21:00 EST, Height, 65.9, kg, 10/29/19 13:03:00 EDT, Dry Weight Start Date: 06/19/20 Status: Ordered Menopur 75 intl units subcutaneous injection = 150 International_Units, Subcutaneous Infusion, Daily, # 25 each, 5 Refills, Maintenance, 05/13/20 14:10:00 EST, [facility], Partial fill upon patient request if the prescription is fora schedule II opioid drug., 170.1, cm, 03/20/20 10:... Start Date: 05/13/20 Status: Ordered Ovidrel 250 mcg/0.5 mL subcutaneous solution = 250 mcg, Subcutaneous Injection, Once, # 1 each, 5 Refills, Soft Stop, 05/13/20 14:10:00 EST, Solution, [facility], Partial fill upon patient request if the prescription is for a schedule II opioid drug., 170.1, cm, 03/20/20 10:21:00 EST... Start Date: 05/13/20 Status: Ordered oxyCODONE 5 mg oral tablet 5 mg, 1, tablet, By Mouth, Every 6 hours, PRN, # 8 tablet, Refills 0, Tot. Refills 0, Maintenance, Pain , Severe, 07/12/20 13:53:00 EST, Route to Pharmacy Electronically, [facility] #[id number],Partial fill upon patient request, 170.1, cm, 03/20... Start Date: 07/12/20 Status: Ordered Multivitamins See Instructions, Takes By Mouth Every other day, 0 Refills, Maintenance, 03/20/20 10:22:00 EST, Partial fill upon patient request Start Date: 03/20/20 Status: Ordered Prometrium 200 mg oral capsule See Instructions, Insert 1 vaginally TID, # 90 capsule, 5 Refills, Maintenance, 05/13/20 14:10:00 EST, [facility], Partial fill upon patient [...] Stop, 07/12/20 13:53:00 EST, [facility], [facility] #[facility]... Start Date: 07/12/20 Status: Ordered Problem List Condition Effective Dates Status Health Status Inform ant Acquired hypothyroidism(Confirmed) Active Bilateral ovarian cysts(Confirmed) Active Dysmenorrhea(Confirmed) Active Endometriosis, severe(Confirmed) Active Female infertility(Confirmed) Active Social History Social History Type Response Smoking Status Never smoker entered on: 01/19/18 Sex
--- OUTSIDE RECORDS SUMMARY | 2023-04-20 15:16 | XMS_ITS | Continuity of Care Document ---
Author Name Unknown Organization [facility] Address [address], [address] [place] [address]- Care Team Providers Care Photovoltaic Panel Installer Name Role Phone Not on Staff, PCP Primary Care Physician Unavail able Encounter [facility] [place] Date(s): 07/19/20 - 07/26/20 [facility] Rep[facility]ductive Medicine [address], 4[address] [place] [address]- Attending Physician: Not on Staff, Attending MD Referring Physician: Eneida Villanueva MD Allergies, Adverse Reactions, Alerts Substance Reaction [...] tablet, 0 Refills, Maintenance, 07/12/20 12:08:00 EST, [facility] #[id number], Partial fill upon patient request if the prescription is for a schedule II opioid drug., 1... Start Date: 07/12/20 Stop Date: 07/19/20 Status: Ordered doxycycline hyclate 100 mg oral tablet 1 tablet = 100 mg, By Mouth, 2 times a day, # 28 tablet, 5 Refills, Maintenance, 05/13/20 14:10:00 EST, [facility], Partial fill upon patient request if the prescription is for a scheduleII opioid drug., 170.1, cm, 03/20/20 10:21:00 EST,... Start Date: 05/13/20 Status: Ordered estradiol 0.1 mg/24 hours twice weekly transdermal film, extended release See Instructions, apply 2 patches the day after retrieval and change QOD, # 32 each, 5 Refills, Maintenance, 05/13/20 14:10:00 EST, [facility], Partial fill upon patient request if the prescription is for a schedule II opioid drug., 170.1,... Start Date: 05/13/20 Status: Ordered Gonal-F 1050 units subcutaneous injection = 300 International_Units, Subcutaneous Infusion, Daily, # 3 kit, 5 Refills, Maintenance, 05/13/20 14:10:00 EST, [facility], Partial fill upon patient request if the prescription is for aschedule II opioid drug., 300 International_Units S... Start Date: 05/13/20 Status: Ordered leuprolide 5 mg/mL subcutaneous solution See Instructions, 10 units sc QD, needs for 05/26, # 1 kit, 5 Refills, Maintenance, 05/13/20 14:13:00 EST, [facility], Partial fill upon patient request if the prescription is for a schedule II opioid drug., 170.1, cm, 03/20/20 10:21:00 EST... Start Date: 05/13/20 Status: Ordered levothyroxine 0.137 mg oral tablet 1 tablet, By Mouth, Daily, # 90 tablet, 3 Refills, Maintenance, 06/19/20 9:24:00 EST, [facility] #[id number], 170.1, cm, 03/20/20 10:21:00 EST, Height, 65.9, kg, 10/29/19 13:03:00 EDT, Dry Weight Start Date: 06/19/20 Status: Ordered Menopur 75 intl units subcutaneous injection = 150 International_Units, Subcutaneous Infusion, Daily, # 25 each, 5 Refills, Maintenance, 05/13/20 14:10:00 EST, [facility], Partial fill upon patient request if the prescription is fora schedule II opioid drug., 170.1, cm, 03/20/20 10:... Start Date: 05/13/20 Status: Ordered Ovidrel 250 mcg/0.5 mL subcutaneous solution = 250 mcg, Subcutaneous Injection, Once, # 1 each, 5 Refills, Soft Stop, 05/13/20 14:10:00 EST, Solution, [facility], Partial fill upon patient request if the prescription is for a schedule II opioid drug., 170.1, cm, 03/20/20 10:21:00 EST... Start Date: 05/13/20 Status: Ordered oxyCODONE 5 mg oral tablet 5 mg, 1, tablet, By Mouth, Every 6 hours, PRN, # 8 tablet, Refills 0, Tot. Refills 0, Maintenance, Pain , Severe, 07/12/20 13:53:00 EST, Route to Pharmacy Electronically, [facility] #[id number],Partial fill upon patient request, 170.1, cm, 03/20... Start Date: 07/12/20 Status: Ordered Multivitamins See Instructions, Takes By Mouth Every other day, 0 Refills, Maintenance, 03/20/20 10:22:00 EST, Partial fill upon patient request Start Date: 03/20/20 Status: Ordered Prometrium 200 mg oral capsule See Instructions, Insert 1 vaginally TID, # 90 capsule, 5 Refills, Maintenance, 05/13/20 14:10:00 EST, [facility], Partial fill upon patient request [...] Stop, 07/12/20 13:53:00 EST, [facility], [facility] #0... Start Date: 07/12/20 Status: Ordered Problem List Condition Effective Dates Status Health Status Inform ant Acquired hypothyroidism(Confirmed) Active Bilateral ovarian cysts(Confirmed) Active Dysmenorrhea(Confirmed) Active Endometriosis, severe(Confirmed) Active Female infertility(Confirmed) Active Social History Social History Type Response Smoking Status Never smoker entered on: 01/19/18 Sex
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
--- OUTSIDE RECORDS SUMMARY | 2023-04-20 15:16 | XMS_ITS | Continuity of Care Document ---
Author Name Unknown Organization [facility] Address [address] [place] [address], [address], [place] [address]- Care Team Providers Care Prototype Fabricator Name Role Phone Not on Staff, PCP Primary Care Physician Unavail able Encounter [facility] [place] Date(s): 06/02/20 - 07/02/20 [facility] [address] [place] [address]- Allergies, Adverse Reactions, Alerts Substance Reaction Severity Status Dust Active Medications doxycycline hyclate 100 mg oral tablet 1 tablet = 100 mg, By Mouth, 2 times a day, # 28 tablet, 5 Refills, Maintenance, 05/13/20 14:10:00 EST, [facility], Partial fill upon patient request if the prescription is for a scheduleII opioid drug., 170.1, cm, 03/20/20 10:21:00 EST,... Start Date: 05/13/20 Status: Ordered estradiol 0.1 mg/24 hours twice weekly transdermal film, extended release See Instructions, apply 2 patches the day after retrieval and change QOD, # 32 each, 5 Refills, Maintenance, 05/13/20 14:10:00 EST, [facility], Partial fill upon patient request if the prescription is for a schedule II opioid drug., 170.1,... Start Date: 05/13/20 Status: Ordered Gonal-F 1050 units subcutaneous injection = 300 International_Units, Subcutaneous Infusion, Daily, # 3 kit, 5 Refills, Maintenance, 05/13/20 14:10:00 EST, [facility], Partial fill upon patient request if the prescription is for aschedule II opioid drug., 300 International_Units S... Start Date: 05/13/20 Status: Ordered leuprolide 5 mg/mL subcutaneous solution See Instructions, 10 units sc QD, needs for 1/18, # 1 kit, 5 Refills, Maintenance, 05/13/20 14:13:00 EST, [facility], Partial fill upon patient request if the prescription is for a schedule II opioid drug., 170.1, cm, 03/20/20 10:21:00 EST... Start Date: 05/13/20 Status: Ordered levothyroxine 0.137 mg oral tablet 1 tablet, By Mouth, Daily, # 90 tablet, 3 Refills, Maintenance, 06/19/20 9:24:00 EST, [facility] #[id number], 170.1, cm, 03/20/20 10:21:00 EST, Height, 65.9, kg, 10/29/19 13:03:00 EDT, Dry Weight Start Date: 06/19/20 Status: Ordered Menopur 75 intl units subcutaneous injection = 150 International_Units, Subcutaneous Infusion, Daily, # 25 each, 5 Refills, Maintenance, 05/13/20 14:10:00 EST, [facility], Partial fill upon patient request if the prescription is fora schedule II opioid drug., 170.1, cm, 03/20/20 10:... Start Date: 05/13/20 Status: Ordered Ovidrel 250 mcg/0.5 mL subcutaneous solution = 250 mcg, Subcutaneous Injection, Once, # 1 each, 5 Refills, Soft Stop, 05/13/20 14:10:00 EST, Solution, [facility], Partial fill upon patient [...] 5 Refills, Maintenance, 05/13/20 14:10:00 EST, [facility], Partial fill upon patient [...]
--- OUTSIDE RECORDS SUMMARY | 2023-04-20 15:16 | XMS_ITS | Continuity of Care Document ---
Author Name Unknown Organization [facility] Address [address], 4[address] [place] [address]- Care Team Providers Care Getter Operator Name Role Phone Not on Staff, PCP Primary Care Physician Unavail able En[place] [facility] [place] Date(s): 11/20/19 - 11/27/[address] [facility] [address], 4[address] [place] [address]- [facility] Attending Physician: Cristal Garrido MD Referring Physician: Not on Staff, Referring MD Allergies, Adverse Reactions, Alerts Substance Reaction Severity Status NKA Active Medications levothyroxine 0.112 mg oral tablet 1 tablet = 112 mcg, By Mouth, Daily, # 30 tablet, 6 Refills, Maintenance, 10/02/19 10:59:00 EDT, Tablet, [facility], 170.18, cm, 09/19/19 12:02:00 EDT, Height Start Date: 10/02/19 Status: Ordered Problem List Condition Effective Dates Status Health Status Inform ant Acquired hypothyroidism(Confirmed) Active Bilateral ovarian cysts(Confirmed) Active Dysmenorrhea(Confirmed) Active Endometriosis, severe(Confirmed) Active Female infertility(Confirmed) Active Vital Signs Most recent to oldest [Reference Range]: 1 Height 170.1 cm (11/20/19 8:06 AM) Weight 67.72 kg (11/20/19 8:06 AM) Body Mass Index [18.5-24.99] 23.4 (11/20/19 8:06 AM) Blood Pressure [90-138/55-84 mm Hg] 124/ 75mm Hg (11/20/19 8:06 AM) Blood pressure sites Arm, right (11/20/19 8:06 AM) Weight Obtained Via Standing scale (7/14/20 8:06 AM) Social History Social History Type Response Smoking Status Never smoker entered on: 01/19/18 Sex
--- OUTSIDE RECORDS SUMMARY | 2023-04-20 15:16 | XMS_ITS | Continuity of Care Document ---
Author Name Unknown Organization [facility] Address [address], 4t [address] [place] [address]- Care Team Providers Care Advanced Manager Name Role Phone Not on Staff, PCP Primary Care Physician Unavail able Encounter [facility] Date(s): 03/25/20 - 04/24/20 [facility] Rep[facility]ductive Medicine [address], 4[address] [place] [id number] Allergies, Adverse Reactions, Alerts Substance Reaction Severity Status Dust Active Medications levothyroxine 137 mcg (0.137 mg) oral capsule 1 capsule = 137 mcg, By Mouth, Daily, # 30 capsule, 2 Refills, Maintenance, 03/25/20 16:29:00 EST, Capsule, [facility] #[id number], Partial fill upon patient request, 170.1, cm, [...]
--- OUTSIDE RECORDS SUMMARY | 2023-04-20 15:17 | XMS_ITS | Continuity of Care Document ---
Author Name Unknown Organization [facility] Address [address] [place] [address], [address]t [address] [place] [address]- Care Team Providers Care Tree Killer Name Role Phone Radhika HERNANDEZ, Cristal Primary Care Physician [phone] [place] [facility] [place](s): 07/15/20 - 08/18/20 [facility] Reproductive Medicine [address], [address] [place] [address] Attending Physician: Not on Staff, Attending MD Referring Physician: Cristal Garrido MD Allergies, [...] tablet, 3 Refills, Maintenance, 06/19/20 9:24:00 EST, [facility] #[id number], 170.1, cm, 03/20/20 10:21:00 EST, Height, 65.9, [...] mL, 5 Refills, Maintenance, 08/18/20 17:36:00 EDT, [facility], Partial fill upon patient request if the prescription is for a schedule II opioid drug., 170.1, cm, 08/04/20 7:44:0... Start Date: 08/18/20 Status: Ordered Prometrium 200 mg oral capsule See Instructions, Insert 1 vaginally TID, # 90 capsule, 5 Refills, Maintenance, 05/13/20 14:10:00 EST, [facility], Partial fill [...]
--- OUTSIDE RECORDS SUMMARY | 2023-04-20 15:17 | XMS_ITS | Continuity of Care Document ---
Author Name Unknown Organization [facility] Address [address] [place] [address]- Care Team Providers Care Reweaver Name Role Phone Not on Staff, PCP Primary Care Physician Unavail able En[facility] [place] Date(s): 07/14/20 - 08/13/[address] [address] Attending Physician: Cristal Garrido MD Allergies, Adverse [...] tablet, 0 Refills, Maintenance, 07/12/20 12:08:00 EST, [facility] #[id number], Partial fill upon patient request if the prescription is for a schedule II opioid drug., 1... Start Date: 07/12/20 Stop Date: 07/19/20 Status: Ordered doxycycline hyclate 100 mg oral tablet 1 tablet = 100 mg, By Mouth, 2 times a day, # 28 tablet, 5 Refills, Maintenance, 05/13/20 14:10:00 EST, [facility], Partial fill upon patient request if the prescription is for a scheduleII opioid drug., 170.1, cm, 11/12/20 10:21:00 EST,... Start Date: 05/13/20 Status: Ordered estradiol 0.1 mg/24 hours twice weekly transdermal film, extended release See Instructions, apply 2 patches the day after retrieval and change QOD, # 32 each, 5 Refills, Maintenance, 05/13/20 14:10:00 EST, [facility], Partial fill upon patient request if the prescription is for a schedule II opioid drug., 170.1,... Start Date: 05/13/20 Status: Ordered Gonal-F 1050 units subcutaneous injection = 300 International_Units, Subcutaneous Infusion, Daily, # 3 kit, 5 Refills, Maintenance, 05/13/20 14:10:00 EST, [facility], Partial fill upon patient request if the prescription is for aschedule II opioid drug., 300 International_Units S... Start Date: 05/13/20 Status: Ordered leuprolide 5 mg/mL subcutaneous solution See Instructions, 10 units sc QD, needs for 05/26, # 1 kit, 5 Refills, Maintenance, 05/13/20 14:13:00 EST, [facility], Partial fill upon patient request if the prescription is for a schedule II opioid drug., 170.1, cm, 03/20/20 10:21:00 EST... Start Date: 05/13/20 Status: Ordered levothyroxine 0.137 mg oral tablet 1 tablet, By Mouth, Daily, # 90 tablet, 3 Refills, Maintenance, 06/19/20 9:24:00 EST, [facility] #[id number], 170.1, cm, 03/20/20 10:21:00 EST, Height, 65.9, kg, 10/29/19 13:03:00 EDT, Dry Weight Start Date: 06/19/20 Status: Ordered Menopur 75 intl units subcutaneous injection = 150 International_Units, Subcutaneous Infusion, Daily, # 25 each, 5 Refills, Maintenance, 05/13/20 14:10:00 EST, [facility], Partial fill upon patient request if the prescription is fora schedule II opioid drug., 170.1, cm, 03/20/20 10:... Start Date: 05/13/20 Status: Ordered Ovidrel 250 mcg/0.5 mL subcutaneous solution = 250 mcg, Subcutaneous Injection, Once, # 1 each, 5 Refills, Soft Stop, 05/13/20 14:10:00 EST, Solution, [facility], Partial fill upon patient request if the prescription is for a schedule II opioid drug., 170.1, cm, 03/20/20 10:21:00 EST... Start Date: 05/13/20 Status: Ordered oxyCODONE 5 mg oral tablet 5 mg, 1, tablet, By Mouth, Every 6 hours, PRN, # 8 tablet, Refills 0, Tot. Refills 0, Maintenance, Pain , Severe, 07/12/20 13:53:00 EST, Route to Pharmacy Electronically, [facility] #[id number],Partial fill upon patient request, 170.1, cm, 03/20... Start Date: 07/12/20 Status: Ordered Multivitamins See Instructions, Takes By Mouth Every other day, 0 Refills, Maintenance, 03/20/20 10:22:00 EST, Partial fill upon patient request Start Date: 03/20/20 Status: Ordered Prometrium 200 mg oral capsule See Instructions, Insert 1 vaginally TID, # 90 capsule, 5 Refills, Maintenance, 05/13/20 14:10:00 EST, [facility], Partial fill upon patient [...] Stop, 07/12/20 13:53:00 EST, [facility], [facility] #0... Start Date: 07/12/20 Status: Ordered Problem List Condition Effective Dates Status Health Status Inform ant Acquired hypothyroidism(Confirmed) Active Bilateral ovarian cysts(Confirmed) Active Dysmenorrhea(Confirmed) Active Endometriosis, severe(Confirmed) Active Female infertility(Confirmed) Active Social History Social History Type Response Smoking Status Never smoker entered on: 01/19/18 Sex
--- OUTSIDE RECORDS SUMMARY | 2023-04-20 15:17 | XMS_ITS | Continuity of Care Document ---
Author Name Unknown Organization [facility] Payam foreman [facility] Address [address], [address] [place] [address]- Care Team Providers Care Demolitionist Name Role Phone Not on Staff, PCP Primary Care Physician Unavail able Encounter [facility] Date(s): 06/19/20 - 07/19/20 [facility] [address], [address] [place] [address]- Allergies, Adverse Reactions, Alerts Substance Reaction Severity Status Dust Active Medications 0.5cc insulin syringes 0.5cc insulin syringes, See Instructions, # 10 each, Refills 5, Tot. Refills 5, Maintenance, use with lupron; pt already has this medication, 07/04/20 11:27:00 EST, Compound, 170.1, cm, 03/20/20 10:21:00 EST, Height, 65.9, kg, 10/29/19 13:03:00 VANIATMal.. Start Date: 07/04/20 Status: Ordered cabergoline 0.5 mg oral tablet 1 tablet = 0.5 mg, By Mouth, Daily, Begin 2 hours before hCG injection, # 7 tablet, 0 Refills, Maintenance, 07/12/20 12:08:00 EST, [facility] #[id number], Partial fill upon patient request if the prescription is for a schedule II opioid drug., 1... Start Date: 07/12/20 Stop Date: 07/19/20 Status: Ordered doxycycline hyclate 100 mg oral tablet 1 tablet = 100 mg, By Mouth, 2 times a day, # 28 tablet, 5 Refills, Maintenance, 05/13/20 14:10:00 EST, [facility], Partial fill upon patient request if the prescription is for a scheduleII opioid drug., 170.1, cm, 03/20/20 10:21:00 EST,... Start Date: 05/13/20 Status: Ordered estradiol 0.1 mg/24 hours twice weekly transdermal film, extended release See Instructions, apply 2 patches the day after retrieval and change QOD, # 32 each, 5 Refills, Maintenance, 05/13/20 14:10:00 EST, [facility], Partial fill upon patient request if the prescription is for a schedule II opioid drug., 170.1,... Start Date: 05/13/20 Status: Ordered Gonal-F 1050 units subcutaneous injection = 300 International_Units, Subcutaneous Infusion, Daily, # 3 kit, 5 Refills, Maintenance, 05/13/20 14:10:00 EST, [facility], Partial fill upon patient request if the prescription is for aschedule II opioid drug., 300 International_Units S... Start Date: 05/13/20 Status: Ordered leuprolide 5 mg/mL subcutaneous solution See Instructions, 10 units sc QD, needs for 05/26, # 1 kit, 5 Refills, Maintenance, 05/13/20 14:13:00 EST, [facility], Partial fill upon patient request if the prescription is for a schedule II opioid drug., 170.1, cm, 03/20/20 10:21:00 EST... Start Date: 05/13/20 Status: Ordered levothyroxine 0.137 mg oral tablet 1 tablet, By Mouth, Daily, # 90 tablet, 3 Refills, Maintenance, 06/19/20 9:24:00 EST, [facility] #[id number], 170.1, cm, 03/20/20 10:21:00 EST, Height, 65.9, kg, 10/29/19 13:03:00 EDT, Dry Weight Start Date: 06/19/20 Status: Ordered Menopur 75 intl units subcutaneous injection = 150 International_Units, Subcutaneous Infusion, Daily, # 25 each, 5 Refills, Maintenance, 05/13/20 14:10:00 EST, [facility], Partial fill upon patient request if the prescription is fora schedule II opioid drug., 170.1, cm, 03/20/20 10:... Start Date: 05/13/20 Status: Ordered Ovidrel 250 mcg/0.5 mL subcutaneous solution = 250 mcg, Subcutaneous Injection, Once, # 1 each, 5 Refills, Soft Stop, 05/13/20 14:10:00 EST, Solution, [facility], Partial fill upon patient request if the prescription is for a schedule II opioid drug., 170.1, cm, 03/20/20 10:21:00 EST... Start Date: 05/13/20 Status: Ordered oxyCODONE 5 mg oral tablet 5 mg, 1, tablet, By Mouth, Every 6 hours, PRN, # 8 tablet, Refills 0, Tot. Refills 0, Maintenance, Pain , Severe, 07/12/20 13:53:00 EST, Route to Pharmacy Electronically, [facility] #[id number],Partial fill upon patient request, 170.1, cm, 03/20... Start Date: 07/12/20 Status: Ordered Multivitamins See Instructions, Takes By Mouth Every other day, 0 Refills, Maintenance, 03/20/20 10:22:00 EST, Partial fill upon patient request Start Date: 03/20/20 Status: Ordered Prometrium 200 mg oral capsule See Instructions, Insert 1 vaginally TID, # 90 capsule, 5 Refills, Maintenance, 05/13/20 14:10:00 EST, [facility], Partial fill upon [...] Stop, 07/12/20 13:53:00 EST, [facility], [facility] #0... Start Date: 07/12/20 Status: Ordered Problem List Condition Effective Dates Status Health Status Inform ant Acquired hypothyroidism(Confirmed) Active Bilateral ovarian cysts(Confirmed) Active Dysmenorrhea(Confirmed) Active Endometriosis, severe(Confirmed) Active Female infertility(Confirmed) Active Social History Social History Type Response Smoking Status Never smoker entered on: 01/19/18 Sex
--- OUTSIDE RECORDS SUMMARY | 2023-04-20 15:17 | XMS_ITS | Continuity of Care Document ---
Author Name Unknown Organization [facility] Payam de jesusBenbrias [facility] Address [address], [address] [place] [address]- Care Team Providers Care Psychologist Industrial Organizational Name Role Phone Cristal Garrido MD Primary Care Physician [phone] Encounter [facility] [id number] Date(s): 07/28/20 - 08/27/20 [facility] Payamaura ColinBenbrias [facility] [address], [address] [place], [place] [address] Allergies, Adverse Reactions, Alerts Substance Reaction Severity [...] tablet, 3 Refills, Maintenance, 06/19/20 9:24:00 EST, [facility] #[id number], 170.1, cm, 03/20/20 10:21:00 EST, Height, 65.9, [...] mL, 5 Refills, Maintenance, 08/18/20 17:36:00 EDT, [facility], Partial fill upon patient request if the prescription is for a schedule II opioid drug., 170.1, cm, 08/04/20 7:44:0... Start Date: 08/18/20 Status: Ordered Prometrium 200 mg oral capsule See Instructions, Insert 1 vaginally TID, # 90 capsule, 5 Refills, Maintenance, 05/13/20 14:10:00 EST, [facility], Partial fill upon patient request [...]
--- OUTSIDE RECORDS SUMMARY | 2023-04-20 15:17 | XMS_ITS | Continuity of Care Document ---
Author Name Unknown Organization [facility] Address [address] [place] [address]- Care Team Providers Care Chemical Applicator Name Role Phone Radhika HERNANDEZ, Cristal Primary Care Physician Encounter [facility] Date(s): 01/05/21 - 02/04/21 [facility] [address] [place] [id number] Allergies, Adverse Reactions, Alerts Substance Reaction Severity Status Dust Active Immunizations Given and Recorded Vaccine Date Status Refusal Reason SARS-CoV-2 (COVID-19) Ad26 vaccine 01/16/21 Given Medications enoxaparin 120 mg/0.8 mL injectable solution 0.7 mL = 105 mg, Subcutaneous Injection, Every 24 hours, for 30 days, # 21 mL, 3 Refills, Acute 06/03/21 10:38:00 EST, 02/03/21 10:38:00 EDT, Injection, [facility], Partial fill upon patient request if the prescription is for a schedule... Start Date: 02/03/21 Stop Date: 06/03/21 Status: Ordered levothyroxine 0.137 mg oral tablet 1 tablet, By Mouth, Daily, # 90 tablet, 3 Refills, Maintenance, 06/19/20 9:24:00 EST, [email or web address] #[id number], 170.1, cm, 03/20/20 10:21:00 EST, Height, 65.9, [...]
--- OUTSIDE RECORDS SUMMARY | 2023-04-20 15:17 | XMS_ITS | Continuity of Care Document ---
Author Name Unknown Organization [facility] Address [address] [place] [address]- Care Team Providers Care Athletic Instructor Name Role Phone Radhika HERNANDEZ, Cristal Primary Care Physician En[place] [facility] Date(s): 10/29/20 - 11/28/20 [facility] [address] [place] [id number] Allergies, Adverse Reactions, Alerts Substance [...] tablet, 3 Refills, Maintenance, 06/19/20 9:24:00 EST, [facility] #[id number], 170.1, cm, 03/20/20 10:21:00 EST, Height, 65.9, [...] mL, 5 Refills, Maintenance, 08/18/20 17:36:00 EDT, [facility], Partial fill upon patient request if the prescription is for a schedule II opioid drug., 170.1, cm, 08/04/20 7:44:0... Start Date: 08/18/20 Status: Ordered Prometrium 200 mg oral capsule See Instructions, Insert 1 vaginally TID, # 90 capsule, 5 Refills, Maintenance, 05/13/20 14:10:00 EST, [facility], Partial fill upon patient [...]
--- OUTSIDE RECORDS SUMMARY | 2023-04-20 15:17 | XMS_ITS | Continuity of Care Document ---
Author Name Unknown Organization [facility] Address [address] [place] [address]- Care Team Providers Care Steam Shovelman Name Role Phone Not on Staff, PCP Primary Care Physician Unavail able [place] [facility] Date(s): 07/14/20 - 07/14/[address] [id number] Discharge Disposition: A-D/C Home Attending Physician: Radha [...] 10:21:00 EST, Height, 65.9, kg, 10/29/19 13:03:00 Meg ABERNATHY. Start Date: 07/04/20 Status: Ordered cabergoline 0.5 mg oral tablet 1 tablet = 0.5 mg, By Mouth, Daily, Begin 2 hours before hCG injection, # 7 tablet, 0 Refills, Maintenance, 07/12/20 12:08:00 EST, [facility][id number], Partial fill upon patient request if the prescription is for a schedule II opioid drug., 1... Start Date: 07/12/20 Stop Date: 07/19/20 Status: Ordered doxycycline hyclate 100 mg oral tablet 1 tablet = 100 mg, By Mouth, 2 times a day, # 28 tablet, 5 Refills, Maintenance, 05/13/20 14:10:00 EST, [facility], Partial fill upon patient request if the prescription is for a scheduleII opioid drug., 170.1, cm, 03/20/20 10:21:00 EST,... Start Date: 05/13/20 Status: Ordered estradiol 0.1 mg/24 hours twice weekly transdermal film, extended release See Instructions, apply 2 patches the day after retrieval and change QOD, # 32 each, 5 Refills, Maintenance, 05/13/20 14:10:00 EST, [facility], Partial fill upon patient request if the prescription is for a schedule II opioid drug., 170.1,... Start Date: 05/13/20 Status: Ordered Gonal-F 1050 units subcutaneous injection = 300 International_Units, Subcutaneous Infusion, Daily, # 3 kit, 5 Refills, Maintenance, 05/13/20 14:10:00 EST, [facility], Partial fill upon patient request if the prescription is for aschedule II opioid drug., 300 International_Units S... Start Date: 05/13/20 Status: Ordered leuprolide 5 mg/mL subcutaneous solution See Instructions, 10 units sc QD, needs for 05/26, # 1 kit, 5 Refills, Maintenance, 05/13/20 14:13:00 EST, [facility], Partial fill upon patient request if the prescription is for a schedule II opioid drug., 170.1, cm, 03/20/20 10:21:00 EST... Start Date: 05/13/20 Status: Ordered levothyroxine 0.137 mg oral tablet 1 tablet, By Mouth, Daily, # 90 tablet, 3 Refills, Maintenance, 06/19/20 9:24:00 EST, [facility] #[id number], 170.1, cm, 03/20/20 10:21:00 EST, Height, 65.9, kg, 10/29/19 13:03:00 EDT, Dry Weight Start Date: 06/19/20 Status: Ordered Menopur 75 intl units subcutaneous injection = 150 International_Units, Subcutaneous Infusion, Daily, # 25 each, 5 Refills, Maintenance, 05/13/20 14:10:00 EST, [facility], Partial fill upon patient request if the prescription is fora schedule II opioid drug., 170.1, cm, 03/20/20 10:... Start Date: 05/13/20 Status: Ordered Ovidrel 250 mcg/0.5 mL subcutaneous solution = 250 mcg, Subcutaneous Injection, Once, # 1 each, 5 Refills, Soft Stop, 05/13/20 14:10:00 EST, Solution, [facility], Partial fill upon patient request if the prescription is for a schedule II opioid drug., 170.1, cm, 03/20/20 10:21:00 EST... Start Date: 05/13/20 Status: Ordered oxyCODONE 5 mg oral tablet 5 mg, 1, tablet, By Mouth, Every 6 hours, PRN, # 8 tablet, Refills 0, Tot. Refills 0, Maintenance, Pain , Severe, 07/12/20 13:53:00 EST, Route to Pharmacy Electronically, [facility] #[id number],Partial fill upon patient request, 170.1, cm, 03/20... Start Date: 07/12/20 Status: Ordered Multivitamins See Instructions, Takes By Mouth Every other day, 0 Refills, Maintenance, 03/20/20 10:22:00 EST, Partial fill upon patient request Start Date: 03/20/20 Status: Ordered Prometrium 200 mg oral capsule See Instructions, Insert 1 vaginally TID, # 90 capsule, 5 Refills, Maintenance, 05/13/20 14:10:00 EST, [facility], Partial fill upon patient [...] Stop, 07/12/20 13:53:00 EST, [facility], [facility] #0... Start Date: 07/12/20 Status: Ordered Problem List Condition Effective Dates Status Health Status Inform ant Acquired hypothyroidism(Confirmed) Active Bilateral ovarian cysts(Confirmed) Active Dysmenorrhea(Confirmed) Active Endometriosis, severe(Confirmed) Active Female infertility(Confirmed) Active Social History Social History Type Response Smoking Status Never smoker entered on: 01/19/18 Sex
--- OUTSIDE RECORDS SUMMARY | 2023-04-20 15:17 | XMS_ITS | Continuity of Care Document ---
Author Name Unknown Organization [facility] Address [address] [place] [address]- Care Team Providers Care Front Office Medical Assistant Name Role Phone Cristal Garrido MD Primary Care Physician [phone] [place] [facility] [place] - 10[place]/20 [facility] [address] [place] [address] [address] Attending Physician: Admtr, Ar8 Admitting Physician: Admtr, Ar8 Referring Physician: Admtr, Ar8 Allergies, Adverse Reactions, Alerts Substance Reaction Severity [...] tablet, 3 Refills, Maintenance, 06/19/20 9:24:00 EST, [facility] #[id number], 170.1, cm, 03/20/20 10:21:00 EST, Height, 65.9, [...] mL, 5 Refills, Maintenance, 08/18/20 17:36:00 EDT, [facility], Partial fill upon patient request if the prescription is for a schedule II opioid drug., 170.1, cm, 08/04/20 7:44:0... Start Date: 08/18/20 Status: Ordered Prometrium 200 mg oral capsule See Instructions, Insert 1 vaginally TID, # 90 capsule, 5 Refills, Maintenance, 05/13/20 14:10:00 EST, [facility], Partial fill upon [...]
--- OUTSIDE RECORDS SUMMARY | 2023-04-20 15:17 | XMS_ITS | Continuity of Care Document ---
Author Name Unknown Organization [facility] Payam de jesuss [facility] Address [address] [place] [address], [address] [place] [address]- Care Team Providers Care Graphite Mill Operator Name Role Phone Not on Staff, PCP Primary Care Physician Unavail able [place] [facility] Date(s): 05/06/20 - 06/05/20 [facility] [address] [place], [place] [address] Allergies, Adverse Reactions, Alerts Substance Reaction Severity Status Dust Active Medications doxycycline hyclate 100 mg oral tablet 1 tablet = 100 mg, By Mouth, 2 times a day, # 28 tablet, 5 Refills, Maintenance, 05/13/20 14:10:00 EST, [facility], Partial fill upon patient request if the prescription is for a scheduleII opioid drug., 170.1, cm, 03/20/20 10:21:00 EST,... Start Date: 05/13/20 Status: Ordered estradiol 0.1 mg/24 hours twice weekly transdermal film, extended release See Instructions, apply 2 patches the day after retrieval and change QOD, # 32 each, 5 Refills, Maintenance, 05/13/20 14:10:00 EST, [facility], Partial fill upon patient request if the prescription is for a schedule II opioid drug., 170.1,... Start Date: 05/13/20 Status: Ordered Gonal-F 1050 units subcutaneous injection = 300 International_Units, Subcutaneous Infusion, Daily, # 3 kit, 5 Refills, Maintenance, 05/13/20 14:10:00 EST, [facility], Partial fill upon patient request if the prescription is for aschedule II opioid drug., 300 International_Units S... Start Date: 05/13/20 Status: Ordered leuprolide 5 mg/mL subcutaneous solution See Instructions, 10 units sc QD, needs for 05/26, # 1 kit, 5 Refills, Maintenance, 05/13/20 14:13:00 EST, [facility], Partial fill upon patient request if the prescription is for a schedule II opioid drug., 170.1, cm, 03/20/20 10:21:00 EST... Start Date: 05/13/20 Status: Ordered levothyroxine 137 mcg (0.137 mg) oral capsule 1 capsule = 137 mcg, By Mouth, Daily, # 30 capsule, 2 Refills, Maintenance, 03/25/20 16:29:00 EST, Capsule, [facility] #[id number], Partial fill upon patient request, 170.1, cm, 03/20/20 10:21:00 EST, Height, 65.9, kg, 10/29/19 13:03:00 EDT, Dry... Start Date: 03/25/20 Status: Ordered Menopur 75 intl units subcutaneous injection = 150 International_Units, Subcutaneous Infusion, Daily, # 25 each, 5 Refills, Maintenance, 05/13/20 14:10:00 EST, [facility], Partial fill upon patient request if the prescription is fora schedule II opioid drug., 170.1, cm, 03/20/20 10:... Start Date: 05/13/20 Status: Ordered Ovidrel 250 mcg/0.5 mL subcutaneous solution = 250 mcg, Subcutaneous Injection, Once, # 1 each, 5 Refills, Soft Stop, 05/13/20 14:10:00 EST, Solution, [facility], Partial fill upon patient [...] capsule, 5 Refills, Maintenance, 05/13/20 14:10:00 EST, [facility], Partial fill upon patient [...]
--- OUTSIDE RECORDS SUMMARY | 2023-04-20 15:17 | XMS_ITS | Continuity of Care Document ---
Author Name Unknown Organization [facility] Payam gonzalezs [facility] Address [address] [place] [address], [address] [place] [address]- Care Team Providers Care Slurry Mixer Name Role Phone Not on Staff, PCP Primary Care Physician Unavail able Encounter [facility] Date(s): 07/15/20 - 08/14/20 [facility] Payam Patricias [facility] [address], [address] [place] [address]- Allergies, Adverse Reactions, Alerts Substance Reaction Severity [...] tablet, 0 Refills, Maintenance, 07/12/20 12:08:00 EST, [facility] #[id number], Partial fill upon patient request if the prescription is for a schedule II opioid drug., 1... Start Date: 07/12/20 Stop Date: 07/19/20 Status: Ordered doxycycline hyclate 100 mg oral tablet 1 tablet = 100 mg, By Mouth, 2 times a day, # 28 tablet, 5 Refills, Maintenance, 05/13/20 14:10:00 EST, [facility], Partial fill upon patient request if the prescription is for a scheduleII opioid drug., 170.1, cm, 03/20/20 10:21:00 EST,... Start Date: 05/13/20 Status: Ordered estradiol 0.1 mg/24 hours twice weekly transdermal film, extended release See Instructions, apply 2 patches the day after retrieval and change QOD, # 32 each, 5 Refills, Maintenance, 05/13/20 14:10:00 EST, [facility], Partial fill upon patient request if the prescription is for a schedule II opioid drug., 170.1,... Start Date: 05/13/20 Status: Ordered Gonal-F 1050 units subcutaneous injection = 300 International_Units, Subcutaneous Infusion, Daily, # 3 kit, 5 Refills, Maintenance, 05/13/20 14:10:00 EST, [facility], Partial fill upon patient request if the prescription is for aschedule II opioid drug., 300 International_Units S... Start Date: 05/13/20 Status: Ordered leuprolide 5 mg/mL subcutaneous solution See Instructions, 10 units sc QD, needs for 05/26, # 1 kit, 5 Refills, Maintenance, 05/13/20 14:13:00 EST, [facility], Partial fill upon patient request if the prescription is for a schedule II opioid drug., 170.1, cm, 03/20/20 10:21:00 EST... Start Date: 05/13/20 Status: Ordered levothyroxine 0.137 mg oral tablet 1 tablet, By Mouth, Daily, # 90 tablet, 3 Refills, Maintenance, 06/19/20 9:24:00 EST, [facility] #[id number], 170.1, cm, 03/20/20 10:21:00 EST, Height, 65.9, kg, 10/29/19 13:03:00 EDT, Dry Weight Start Date: 06/19/20 Status: Ordered Menopur 75 intl units subcutaneous injection = 150 International_Units, Subcutaneous Infusion, Daily, # 25 each, 5 Refills, Maintenance, 05/13/20 14:10:00 EST, [facility], Partial fill upon patient request if the prescription is fora schedule II opioid drug., 170.1, cm, 03/20/20 10:... Start Date: 05/13/20 Status: Ordered Ovidrel 250 mcg/0.5 mL subcutaneous solution = 250 mcg, Subcutaneous Injection, Once, # 1 each, 5 Refills, Soft Stop, 05/13/20 14:10:00 EST, Solution, [facility], Partial fill upon patient request if the prescription is for a schedule II opioid drug., 170.1, cm, 03/20/20 10:21:00 EST... Start Date: 05/13/20 Status: Ordered oxyCODONE 5 mg oral tablet 5 mg, 1, tablet, By Mouth, Every 6 hours, PRN, # 8 tablet, Refills 0, Tot. Refills 0, Maintenance, Pain , Severe, 07/12/20 13:53:00 EST, Route to Pharmacy Electronically, [facility] #[id number],Partial fill upon patient request, 170.1, cm, 03/20... Start Date: 07/12/20 Status: Ordered Multivitamins See Instructions, Takes By Mouth Every other day, 0 Refills, Maintenance, 03/20/20 10:22:00 EST, Partial fill upon patient request Start Date: 03/20/20 Status: Ordered Prometrium 200 mg oral capsule See Instructions, Insert 1 vaginally TID, # 90 capsule, 5 Refills, Maintenance, 05/13/20 14:10:00 EST, [facility], Partial fill upon [...] Stop, 07/12/20 13:53:00 EST, [facility], [facility] #0... Start Date: 07/12/20 Status: Ordered Problem List Condition Effective Dates Status Health Status Inform ant Acquired hypothyroidism(Confirmed) Active Bilateral ovarian cysts(Confirmed) Active Dysmenorrhea(Confirmed) Active Endometriosis, severe(Confirmed) Active Female infertility(Confirmed) Active Social History Social History Type Response Smoking Status Never smoker entered on: 01/19/18 Sex
--- OUTSIDE RECORDS SUMMARY | 2023-04-20 15:17 | XMS_ITS | Continuity of Care Document ---
Author Name Unknown Organization [facility] Address [address] [place] [address]- Care Team Providers Care Molding Supervisor Name Role Phone Radhika HERNANDEZ, Cristal Primary Care Physician Encounter [facility] [place] Date(s): 12/30/20 - 06/06/21 [facility] [address] [place] [address]- Discharge Disposition: A-D/C Home Attending Physician: Mario Brown MD Admitting Physician: Mario Brown MD Referring Physician: Tasha Lovett MD Allergies, Adverse Reactions, Alerts Substance Reaction Severity Status Dust Active Immunizations Given and Recorded Vaccine Date Status Refusal Reason SARS-CoV-2 (COVID-19) Ad26 vaccine 01/16/21 Given Medications levothyroxine 0.137 mg oral tablet 1 tablet, By Mouth, Daily, # 90 tablet, 3 Refills, Maintenance, 06/19/20 9:24:00 EST, [facility] #[id number], 170.1, cm, 03/20/20 10:21:00 EST, Height, 65.9, [...] Most recent to oldest [Reference Range]: 1 2 Height 167.5 cm (03/30/21 11:29 AM) 167.5 cm (02/02/21 9:57 AM) Weight 65.5 kg (03/30/21 11:29 AM) 67.4 kg (02/02/21 9:57 AM) Pulse Rate [55-90 bpm] 68 bpm (03/30/21 11:29 AM) 76 bpm (02/02/21 9:57 AM) Body Mass Index [18.5-24.99] 23.35 (03/30/21 11:29 AM) 24.02 (02/02/21 9:57 AM) Blood Pressure [90-138/55-84 mm Hg] 112/ 58mm Hg (03/30/21 11:29 AM) 116/67mm Hg (02/02/21 9:57 AM) Temperature [96.8-100.4 DegF] 97.2 DegF (03/30/21 11:29 AM) 97.4 DegF (02/02/21 9:57 AM) Blood pressure sites Arm, left (03/30/21 11:29 AM) Arm, left (02/02/21 9:57 AM) Temperature Route Temporal (03/30/21 11:29 AM) Temporal (02/02/21 9:57 AM) Dry Weight 65.5 kg (03/30/21 11:29 AM) 67.4 kg (02/02/21 9:57 AM) Weight Obtained Via Standing scale (03/30/21 11:29 AM) Standing scale (02/02/21 9:57 AM) Dry Weight Obtained Via Standing scale (03/30/21 11:29 AM) Standing scale (02/02/21 9:57 AM) Social History Social History Type Response Smoking Status Never smoker entered on: 01/19/18 Sex
--- OUTSIDE RECORDS SUMMARY | 2023-04-20 15:17 | XMS_ITS | Continuity of Care Document ---
Author Name Unknown Organization [email or web address] Address [address] [place] [address], [address] [place] [address]- Care Team Providers Care Driver/Sales Workers Name Role Phone Radhika HERNANDEZ, Cristal Primary Care Physician [phone] Encounter [facility] [place] Date(s): 09/08/20 - 10/08/20 [email or web address] [address] [facility], [address] [place] [address]- Allergies, Adverse Reactions, Alerts Substance Reaction Severity [...] tablet, 3 Refills, Maintenance, 06/19/20 9:24:00 EST, [facility] #[id number], 170.1, cm, 03/20/20 10:21:00 EST, Height, 65.9, [...] mL, 5 Refills, Maintenance, 08/18/20 17:36:00 EDT, [facility], Partial fill upon patient request if the prescription is for a schedule II opioid drug., 170.1, cm, 08/04/20 7:44:0... Start Date: 08/18/20 Status: Ordered Prometrium 200 mg oral capsule See Instructions, Insert 1 vaginally TID, # 90 capsule, 5 Refills, Maintenance, 05/13/20 14:10:00 EST, [facility], Partial fill upon patient [...]
--- OUTSIDE RECORDS SUMMARY | 2023-04-20 15:17 | XMS_ITS | Continuity of Care Document ---
Author Name Unknown Organization [facility] Address [address] [place] [address]- Care Team Providers Care Inspector Handbag Frames Name Role Phone Cristal Garrido MD Primary Care Physician Encounter [facility] [place] Date(s): 12/05/20 - 01/04/21 [facility] [address] [place] [address]- Allergies, Adverse Reactions, Alerts Substance Reaction Severity Status Dust Active Medications enoxaparin 120 mg/0.8 mL injectable solution 0.8 mL = 120 mg, Subcutaneous Injection, Daily, for 30 days, # 24 mL, 1 Refills, Acute 02/26/21 8:17:00 EDT, 12/28/20 8:17:00 EDT, Injection, [facility] #[id number], Partial fill upon patient request if the prescription is for a schedule II opioi... Start Date: 12/28/20 Stop Date: 02/26/21 Status: Ordered levothyroxine 0.137 mg oral tablet 1 tablet, By Mouth, Daily, # 90 tablet, 3 Refills, Maintenance, 06/19/20 9:24:00 EST, [facility] #[id number], 170.1, cm, 03/20/20 10:21:00 EST, Height, 65.9, [...]
--- OUTSIDE RECORDS SUMMARY | 2023-04-20 15:17 | XMS_ITS | Continuity of Care Document ---
Author Name Unknown Organization [facility] Address [address] [place] [address], [address] [place] [address]- Care Team Providers Care Lace Finisher Name Role Phone Not on Staff, PCP Primary Care Physician Unavail able [place] [facility] [place] 08/14/20 [facility] [address] [facility], [address] [place] [address]- Allergies, Adverse Reactions, Alerts Substance Reaction Severity [...] tablet, 0 Refills, Maintenance, 07/12/20 12:08:00 EST, [facility] #[id number], Partial fill upon patient request if the prescription is for a schedule II opioid drug., 1... Start Date: 07/12/20 Stop Date: 07/19/20 Status: Ordered doxycycline hyclate 100 mg oral tablet 1 tablet = 100 mg, By Mouth, 2 times a day, # 28 tablet, 5 Refills, Maintenance, 05/13/20 14:10:00 EST, [facility], Partial fill upon patient request if the prescription is for a scheduleII opioid drug., 170.1, cm, 03/20/20 10:21:00 EST,... Start Date: 05/13/20 Status: Ordered estradiol 0.1 mg/24 hours twice weekly transdermal film, extended release See Instructions, apply 2 patches the day after retrieval and change QOD, # 32 each, 5 Refills, Maintenance, 05/13/20 14:10:00 EST, [facility], Partial fill upon patient request if the prescription is for a schedule II opioid drug., 170.1,... Start Date: 05/13/20 Status: Ordered Gonal-F 1050 units subcutaneous injection = 300 International_Units, Subcutaneous Infusion, Daily, # 3 kit, 5 Refills, Maintenance, 05/13/20 14:10:00 EST, [facility], Partial fill upon patient request if the prescription is for aschedule II opioid drug., 300 International_Units S... Start Date: 05/13/20 Status: Ordered leuprolide 5 mg/mL subcutaneous solution See Instructions, 10 units sc QD, needs for 05/26, # 1 kit, 5 Refills, Maintenance, 05/13/20 14:13:00 EST, [facility], Partial fill upon patient request if the prescription is for a schedule II opioid drug., 170.1, cm, 03/20/20 10:21:00 EST... Start Date: 05/13/20 Status: Ordered levothyroxine 0.137 mg oral tablet 1 tablet, By Mouth, Daily, # 90 tablet, 3 Refills, Maintenance, 06/19/20 9:24:00 EST, [facility] #[id number], 170.1, cm, 03/20/20 10:21:00 EST, Height, 65.9, kg, 10/29/19 13:03:00 EDT, Dry Weight Start Date: 06/19/20 Status: Ordered Menopur 75 intl units subcutaneous injection = 150 International_Units, Subcutaneous Infusion, Daily, # 25 each, 5 Refills, Maintenance, 05/13/20 14:10:00 EST, [facility], Partial fill upon patient request if the prescription is fora schedule II opioid drug., 170.1, cm, 03/20/20 10:... Start Date: 05/13/20 Status: Ordered Ovidrel 250 mcg/0.5 mL subcutaneous solution = 250 mcg, Subcutaneous Injection, Once, # 1 each, 5 Refills, Soft Stop, 05/13/20 14:10:00 EST, Solution, [facility], Partial fill upon patient request if the prescription is for a schedule II opioid drug., 170.1, cm, 03/20/20 10:21:00 EST... Start Date: 05/13/20 Status: Ordered oxyCODONE 5 mg oral tablet 5 mg, 1, tablet, By Mouth, Every 6 hours, PRN, # 8 tablet, Refills 0, Tot. Refills 0, Maintenance, Pain , Severe, 07/12/20 13:53:00 EST, Route to Pharmacy Electronically, [facility] #[id number],Partial fill upon patient request, 170.1, cm, 03/20... Start Date: 07/12/20 Status: Ordered Multivitamins See Instructions, Takes By Mouth Every other day, 0 Refills, Maintenance, 03/20/20 10:22:00 EST, Partial fill upon patient request Start Date: 03/20/20 Status: Ordered Prometrium 200 mg oral capsule See Instructions, Insert 1 vaginally TID, # 90 capsule, 5 Refills, Maintenance, 05/13/20 14:10:00 EST, [facility], Partial fill upon patient [...] Stop, 07/12/20 13:53:00 EST, [facility], [facility] #0... Start Date: 07/12/20 Status: Ordered Problem List Condition Effective Dates Status Health Status Inform ant Acquired hypothyroidism(Confirmed) Active Bilateral ovarian cysts(Confirmed) Active Dysmenorrhea(Confirmed) Active Endometriosis, severe(Confirmed) Active Female infertility(Confirmed) Active Social History Social History Type Response Smoking Status Never smoker entered on: 01/19/18 Sex
--- OUTSIDE RECORDS SUMMARY | 2023-04-20 15:17 | XMS_ITS | Continuity of Care Document ---
Author Name Unknown Organization [facility] Address [address] [place] [address], [address] [place] [address]- Care Team Providers Care Air Intercept Controller Supervisor Name Role Phone Radhika HERNANDEZ, Cristal Primary Care Physician [place] [facility] [place] Date(s): 09/08/20 - 10/08/20 [facility] [address] [facility], [address] [place] [address]- Allergies, Adverse Reactions, Alerts Substance Reaction Severity [...] tablet, 3 Refills, Maintenance, 06/19/20 9:24:00 EST, [facility] #[id number], 170.1, cm, 03/20/20 10:21:00 EST, Height, 65.9, [...] mL, 5 Refills, Maintenance, 08/18/20 17:36:00 EDT, [facility], Partial fill upon patient request if the prescription is for a schedule II opioid drug., 170.1, cm, 08/04/20 7:44:0... Start Date: 08/18/20 Status: Ordered Prometrium 200 mg oral capsule See Instructions, Insert 1 vaginally TID, # 90 capsule, 5 Refills, Maintenance, 05/13/20 14:10:00 EST, [facility], Partial fill upon [...]
--- OUTSIDE RECORDS SUMMARY | 2023-04-20 15:17 | XMS_ITS | Continuity of Care Document ---
Author Name Unknown Organization [facility] Address [address] [place] [address], [address] [place] [address]- Care Team Providers Care Fish Housekeeper Name Role Phone Not on Staff, PCP Primary Care Physician Unavail able [place] [facility] [place]s): 07/14/20 - 08/13/20 [facility] [address] [facility], [address] [place] [address]- Allergies, Adverse Reactions, Alerts Substance Reaction Severity [...] tablet, 0 Refills, Maintenance, 07/12/20 12:08:00 EST, [email or web address] #[id number], Partial fill upon patient request if the prescription is for a schedule II opioid drug., 1... Start Date: 07/12/20 Stop Date: 07/19/20 Status: Ordered doxycycline hyclate 100 mg oral tablet 1 tablet = 100 mg, By Mouth, 2 times a day, # 28 tablet, 5 Refills, Maintenance, 05/13/20 14:10:00 EST, [facility], Partial fill upon patient request if the prescription is for a scheduleII opioid drug., 170.1, cm, 03/20/20 10:21:00 EST,... Start Date: 05/13/20 Status: Ordered estradiol 0.1 mg/24 hours twice weekly transdermal film, extended release See Instructions, apply 2 patches the day after retrieval and change QOD, # 32 each, 5 Refills, Maintenance, 05/13/20 14:10:00 EST, [facility], Partial fill upon patient request if the prescription is for a schedule II opioid drug., 170.1,... Start Date: 05/13/20 Status: Ordered Gonal-F 1050 units subcutaneous injection = 300 International_Units, Subcutaneous Infusion, Daily, # 3 kit, 5 Refills, Maintenance, 05/13/20 14:10:00 EST, [facility], Partial fill upon patient request if the prescription is for aschedule II opioid drug., 300 International_Units S... Start Date: 05/13/20 Status: Ordered leuprolide 5 mg/mL subcutaneous solution See Instructions, 10 units sc QD, needs for 05/26, # 1 kit, 5 Refills, Maintenance, 05/13/20 14:13:00 EST, [facility], Partial fill upon patient request if the prescription is for a schedule II opioid drug., 170.1, cm, 03/20/20 10:21:00 EST... Start Date: 05/13/20 Status: Ordered levothyroxine 0.137 mg oral tablet 1 tablet, By Mouth, Daily, # 90 tablet, 3 Refills, Maintenance, 06/19/20 9:24:00 EST, [email or web address] #[id number], 170.1, cm, 03/20/20 10:21:00 EST, Height, 65.9, kg, 10/29/19 13:03:00 EDT, Dry Weight Start Date: 06/19/20 Status: Ordered Menopur 75 intl units subcutaneous injection = 150 International_Units, Subcutaneous Infusion, Daily, # 25 each, 5 Refills, Maintenance, 05/13/20 14:10:00 EST, [facility], Partial fill upon patient request if the prescription is fora schedule II opioid drug., 170.1, cm, 03/20/20 10:... Start Date: 05/13/20 Status: Ordered Ovidrel 250 mcg/0.5 mL subcutaneous solution = 250 mcg, Subcutaneous Injection, Once, # 1 each, 5 Refills, Soft Stop, 05/13/20 14:10:00 EST, Solution, [facility], Partial fill upon patient request if the prescription is for a schedule II opioid drug., 170.1, cm, 03/20/20 10:21:00 EST... Start Date: 05/13/20 Status: Ordered oxyCODONE 5 mg oral tablet 5 mg, 1, tablet, By Mouth, Every 6 hours, PRN, # 8 tablet, Refills 0, Tot. Refills 0, Maintenance, Pain , Severe, 07/12/20 13:53:00 EST, Route to Pharmacy Electronically, [facility] #[id number],Partial fill upon patient request, 170.1, cm, 03/20... Start Date: 07/12/20 Status: Ordered Multivitamins See Instructions, Takes By Mouth Every other day, 0 Refills, Maintenance, 03/20/20 10:22:00 EST, Partial fill upon patient request Start Date: 03/20/20 Status: Ordered Prometrium 200 mg oral capsule See Instructions, Insert 1 vaginally TID, # 90 capsule, 5 Refills, Maintenance, 05/13/20 14:10:00 EST, [facility], Partial fill upon patient [...] Stop, 07/12/20 13:53:00 EST, [facility], [facility] #0... Start Date: 07/12/20 Status: Ordered Problem List Condition Effective Dates Status Health Status Inform ant Acquired hypothyroidism(Confirmed) Active Bilateral ovarian cysts(Confirmed) Active Dysmenorrhea(Confirmed) Active Endometriosis, severe(Confirmed) Active Female infertility(Confirmed) Active Social History Social History Type Response Smoking Status Never smoker entered on: 01/19/18 Sex
--- OUTSIDE RECORDS SUMMARY | 2023-04-20 15:17 | XMS_ITS | Continuity of Care Document ---
Author Name Unknown Organization [facility] ter Address [address] [place] [address]- Care Team Providers Care Video Production Specialist Name Role Phone Cristal Garrido MD Primary Care Physician En[place] [facility] [place] Date(s): 07/18/21 - 02/17/[address] [address] Discharge Disposition: A-D/C Home Attending Physician: Tasha Lovett MD Admitting Physician: Tasha Lovett MD Referring Physician: Tasha Lovett MD Allergies, Adverse Reactions, Alerts Substance Reaction Severity Status Dust Active Immunizations Given and Recorded Vaccine Date Status Refusal Reason SARS-CoV-2 (COVID-19) Ad26 vaccine 01/16/21 Given Medications levothyroxine 0.137 mg oral tablet 1 tablet, By Mouth, Daily, # 90 tablet, 3 Refills, Maintenance, 06/19/20 9:24:00 EST, [facility] #[id number], 170.1, cm, 03/20/20 10:21:00 EST, Height, 65.9, kg, 10/29/19 13:03:00 EDT, Dry Weight Start Date: 06/19/20 Status: Ordered Multivitamins See Instructions, Takes By Mouth Every other day, 0 Refills, Maintenance, 03/20/20 10:22:00 EST, Partial fill upon patient request Start Date: 03/20/20 Status: Ordered Problem List Condition Confirmation Course Effective Dates Status H ealth Status Informant Acquired hypothyroidism Confirmed Active Bilateral ovarian cysts Confirmed Active Dysmenorrhea Confirmed Active Endometriosis, severe Confirmed Active Female infertility Confirmed Active Social History Social History Type Response Smoking Status Never smoker entered on: 01/19/18 Sex Patient Care team information Personnel Name: Cristal Garrido MD Address: Address: [address] [facility] [place], [place] [address]
--- OUTSIDE RECORDS SUMMARY | 2023-04-20 15:18 | XMS_ITS | Continuity of Care Document ---
Author Name Unknown Organization [facility] Address [address] [facility], [address] [place] [address] [place] [address]- Care Team Providers Care Roller Presser Operator Name Role Phone Not on Staff, PCP Primary Care Physician Unavail able [place] [facility] [place]20 - 03/01/20 [facility] [address] [facility], [address] [place] [address] Allergies, Adverse Reactions, Alerts Substance Reaction Severity Status NKA Active Medications levothyroxine 125 mcg (0.125 mg) oral capsule 1 capsule = 125 mcg, By Mouth, Daily, # 90 capsule, 4 Refills, Maintenance, 01/10/20 14:39:00 EDT, Capsule, [facility], Please cancel 112mcg script, her dose has been increased to 125mcg, 170.1, cm, 11/20/19 8:06:00 EDT, Height, 65.9... Start Date: 01/10/20 Status: Ordered levothyroxine 125 mcg (0.125 mg) oral capsule 1 capsule = 125 mcg, By Mouth, Daily, # 30 capsule, 1 Refills, Maintenance, 01/10/20 14:41:00 EDT, Capsule, [facility] #[id number], Please cancel 112mcg script, her dose has [...]
--- OUTSIDE RECORDS SUMMARY | 2023-04-20 15:18 | XMS_ITS | Continuity of Care Document ---
Author Name Unknown Organization [facility] ter Address [address] [place] [address]- Care Team Providers Care Linux Engineer Name Role Phone Cristal Garrido MD [id number] Date[facility]/27[facility]20 - 12/27/[address] [address]- Discharge Disposition: Transferred to an intermediate care faci Attending Physician: Luiz Calle MD Admitting Physician: Luiz Calle MD Referring Physician: Not on Staff, Referring MD Allergies, Adverse Reactions, Alerts Substance Reaction Severity Status Dust Active Medications levothyroxine 0.137 mg oral tablet 1 tablet, By Mouth, Daily, # 90 tablet, 3 Refills, Maintenance, 06/19/20 9:24:00 EST, [facility] #[id number], 170.1, cm, 03/20/20 10:21:00 EST, Height, 65.9, [...] recent to oldest [Reference Range]: 1 2 Weight 76.2 kg (12/27/20 4:48 PM) 76.2 kg (12/27/20 4:28 PM) Oxygen Saturation [94-100 %] 100 % (12/27/20 4:28 PM) 99 % (12/27/20 3:22 PM) Pulse Rate [55-90 bpm] 78 bpm (12/27/20 4:28 PM) 90 bpm (12/27/20 3:22 PM) Blood Pressure [90-138/55-84 mm Hg] 131/ 78mm Hg (12/27/20 4:28 PM) Respiratory Rate [16-30 br/min] 16 br/mi n (12/27/20 4:28 PM) 18 br/min (12/27/20 3:22 PM) Temperature [96.8-100.4 DegF] 98.0 DegF (12/27/20 4:28 PM) Mode of Delivery (Oxygen) Room air (12/27/20 4:28 PM) Blood pressure sites Arm, right (12/27/20 4:28 PM) Temperature Route Oral (12/27/20 4:28 PM) Dry Weight 76.2 kg (12/27/20 4:48 PM) 76.2 kg (12/27/20 4:28 PM) Weight Obtained Via Patient/family state d (12/27/20 4:28 PM) Dry Weight Obtained Via Patient/family s tated (12/27/20 4:28 PM) Social History Social History Type Response Smoking Status Never smoker entered on: 01/19/18 Sex
--- OUTSIDE RECORDS SUMMARY | 2023-04-20 15:18 | XMS_ITS | Continuity of Care Document ---
Author Name Unknown Organization [facility] e Medicine Address [address], 4t [address] [place] [address]- Care Team Providers Care Photolettering Machine Operator Name Role Phone Not on Staff, PCP Primary Care Physician Unavail able Encounter [facility] Date(s): 07/11/20 - 07/18/20 [facility] [address], 4th [address] [place] [address]- Attending Physician: Eneida Villanueva MD Referring Physician: [...] tablet, 0 Refills, Maintenance, 07/12/20 12:08:00 EST, [facility][id number], Partial fill upon patient request if the prescription is for a schedule II opioid drug., 1... Start Date: 07/12/20 Stop Date: 07/19/20 Status: Ordered doxycycline hyclate 100 mg oral tablet 1 tablet = 100 mg, By Mouth, 2 times a day, # 28 tablet, 5 Refills, Maintenance, 05/13/20 14:10:00 EST, [facility], Partial fill upon patient request if the prescription is for a scheduleII opioid drug., 170.1, cm, 03/20/20 10:21:00 EST,... Start Date: 05/13/20 Status: Ordered estradiol 0.1 mg/24 hours twice weekly transdermal film, extended release See Instructions, apply 2 patches the day after retrieval and change QOD, # 32 each, 5 Refills, Maintenance, 05/13/20 14:10:00 EST, [facility], Partial fill upon patient request if the prescription is for a schedule II opioid drug., 170.1,... Start Date: 05/13/20 Status: Ordered Gonal-F 1050 units subcutaneous injection = 300 International_Units, Subcutaneous Infusion, Daily, # 3 kit, 5 Refills, Maintenance, 05/13/20 14:10:00 EST, [facility], Partial fill upon patient request if the prescription is for aschedule II opioid drug., 300 International_Units S... Start Date: 05/13/20 Status: Ordered leuprolide 5 mg/mL subcutaneous solution See Instructions, 10 units sc QD, needs for 05/26, # 1 kit, 5 Refills, Maintenance, 05/13/20 14:13:00 EST, [facility], Partial fill upon patient request if the prescription is for a schedule II opioid drug., 170.1, cm, 03/20/20 10:21:00 EST... Start Date: 05/13/20 Status: Ordered levothyroxine 0.137 mg oral tablet 1 tablet, By Mouth, Daily, # 90 tablet, 3 Refills, Maintenance, 06/19/20 9:24:00 EST, [facility] #[id number], 170.1, cm, 03/20/20 10:21:00 EST, Height, 65.9, kg, 10/29/19 13:03:00 EDT, Dry Weight Start Date: 06/19/20 Status: Ordered Menopur 75 intl units subcutaneous injection = 150 International_Units, Subcutaneous Infusion, Daily, # 25 each, 5 Refills, Maintenance, 05/13/20 14:10:00 EST, [facility], Partial fill upon patient request if the prescription is fora schedule II opioid drug., 170.1, cm, 03/20/20 10:... Start Date: 05/13/20 Status: Ordered Ovidrel 250 mcg/0.5 mL subcutaneous solution = 250 mcg, Subcutaneous Injection, Once, # 1 each, 5 Refills, Soft Stop, 05/13/20 14:10:00 EST, Solution, [facility], Partial fill upon patient request if the prescription is for a schedule II opioid drug., 170.1, cm, 03/20/20 10:21:00 EST... Start Date: 05/13/20 Status: Ordered oxyCODONE 5 mg oral tablet 5 mg, 1, tablet, By Mouth, Every 6 hours, PRN, # 8 tablet, Refills 0, Tot. Refills 0, Maintenance, Pain , Severe, 07/12/20 13:53:00 EST, Route to Pharmacy Electronically, [facility] #[id number],Partial fill upon patient request, 170.1, cm, 03/20... Start Date: 07/12/20 Status: Ordered Multivitamins See Instructions, Takes By Mouth Every other day, 0 Refills, Maintenance, 03/20/20 10:22:00 EST, Partial fill upon patient request Start Date: 03/20/20 Status: Ordered Prometrium 200 mg oral capsule See Instructions, Insert 1 vaginally TID, # 90 capsule, 5 Refills, Maintenance, 05/13/20 14:10:00 EST, [facility], Partial fill upon patient [...] Stop, 07/12/20 13:53:00 EST, [facility], [facility]... Start Date: 07/12/20 Status: Ordered Problem List Condition Effective Dates Status Health Status Inform ant Acquired hypothyroidism(Confirmed) Active Bilateral ovarian cysts(Confirmed) Active Dysmenorrhea(Confirmed) Active Endometriosis, severe(Confirmed) Active Female infertility(Confirmed) Active Social History Social History Type Response Smoking Status Never smoker entered on: 01/19/18 Sex
--- OUTSIDE RECORDS SUMMARY | 2023-04-20 15:18 | XMS_ITS | Continuity of Care Document ---
Author Name Unknown Organization [facility] ter Address [address] [place] [address]- Care Team Providers Care Lead Systems Engineer Name Role Phone Not on Staff, PCP Primary Care Physician Unavail able Encounter [facility] Date(s): 07/21/20 - 04/06/[address] [address]- Discharge Disposition: A-D/C Home Attending Physician: Cristal Garrido MD Admitting Physician: Cristal Garrido MD Referring Physician: Cristal Garrido MD Allergies, Adverse Reactions, Alerts Substance Reaction Severity Status Dust Active Immunizations Given and Recorded Vaccine Date Status Refusal Reason SARS-CoV-2 (COVID-19) Ad26 vaccine 01/16/21 Given Medications levothyroxine 0.137 mg oral tablet 1 tablet, By Mouth, Daily, # 90 tablet, 3 Refills, Maintenance, 06/19/20 9:24:00 EST, [facility] #[id number], 170.1, cm, 03/20/20 10:21:00 EST, Height, 65.9, kg, 10/29/19 13:03:00 EDT, Dry Weight Start Date: 06/19/20 Status: Ordered Lovenox 100 mg/mL injectable solution = 100 mg, Subcutaneous Injection, Daily, for 30 days, *Note: Treatment = 1.5mg/kg/day, renal dosing= 1mg/kg/day*, # 30 Unknown, 0 Refills, Acute 04/29/21 14:51:00 EST, 03/30/21 14:51:00 [facility], [facility] #[id number], Partial fill upon patient requ... Start Date: 03/30/21 Stop Date: 04/29/21 Status: Ordered Multivitamins See Instructions, Takes By [...]
--- OUTSIDE RECORDS SUMMARY | 2023-04-20 15:18 | XMS_ITS | Continuity of Care Document ---
Author Name Unknown Organization [email or web address] Address [address] [place] [address], [address] [place] [address]- Care Team Providers Care Belt And Link Shop Supervisor Name Role Phone Cristal Garrido MD Primary Care Physician [phone] Encounter [facility] Date(s): 08/07/20 - 09/06/20 [email or web address] [address], [address] [place] [address]- Allergies, Adverse Reactions, Alerts Substance Reaction Severity [...] 90 tablet, 3 Refills, Maintenance, 06/19/20 9:24:00 [id number], 170.1, cm, 03/20/20 10:21:00 EST, Height, 65.9, [...] mL, 5 Refills, Maintenance, 08/18/20 17:36:00 EDT, [facility], Partial fill upon patient [...]
--- OUTSIDE RECORDS SUMMARY | 2023-04-20 15:18 | XMS_ITS | Continuity of Care Document ---
Author Name Unknown Organization [facility] Address [address] [place] [address], [address] [place] [address]- Care Team Providers Care Cloth Bin Packer Name Role Phone Radhika HERNANDEZ, Cristal Primary Care Physician [phone] Encounter [facility] Date(s): 07/25/20 - 08/24/20 [facility] [employer] [address], [address] [place] [address]- Allergies, Adverse Reactions, Alerts Substance Reaction Severity [...] tablet, 3 Refills, Maintenance, 06/19/20 9:24:00 EST, [facility] #[id number], 170.1, cm, 03/20/20 10:21:00 EST, Height, 65.9, [...] 5 Refills, Maintenance, 08/18/20 17:36:00 EDT, [facility], Partial fill upon patient [...]
--- OUTSIDE RECORDS SUMMARY | 2023-04-20 15:18 | XMS_ITS | Continuity of Care Document ---
Author Name Unknown Organization [facility] ter Address [address] [place] [address]- Care Team Providers Care Handkerchief Maker Name Role Phone Not on Staff, PCP Primary Care Physician Unavail able Encounter [facility] Date(s): 07/01/20 - 04/06/[address] [address] Discharge Disposition: A-D/C Home Attending Physician: Cristal Garrido MD Admitting Physician: Cristal Garrido MD Referring Physician: Not on Staff, Referring MD Allergies, Adverse Reactions, Alerts Substance Reaction Severity Status Dust Active Immunizations Given and Recorded Vaccine Date Status Refusal Reason SARS-CoV-2 (COVID-19) Ad26 vaccine 01/16/21 Given Medications levothyroxine 0.137 mg oral tablet 1 tablet, By Mouth, Daily, # 90 tablet, 3 Refills, Maintenance, 06/19/20 9:24:00 EST, [facility] #[id number], 170.1, cm, 03/20/20 10:21:00 EST, Height, 65.9, kg, 10/29/19 13:03:00 EDT, Dry Weight Start Date: 06/19/20 Status: Ordered Lovenox 100 mg/mL injectable solution = 100 mg, Subcutaneous Injection, Daily, for 30 days, *Note: Treatment = 1.5mg/kg/day, renal dosing= 1mg/kg/day*, # 30 Unknown, 0 Refills, Acute 04/29/21 14:51:00 EST, 03/30/21 14:51:00 [facility], [facility] #[id number], Partial fill upon patient requ... Start Date: [...]
--- OUTSIDE RECORDS SUMMARY | 2023-04-20 15:18 | XMS_ITS | Continuity of Care Document ---
Author Name Unknown Organization [facility] e Medicine Address [address], 4t [address] [place] [address]- Care Team Providers Care Civil Process Server Name Role Phone Not on Staff, PCP Primary Care Physician Unavail able Encounter [facility] Date(s): 04/10/20 - 05/10/20 [facility] [address], 4th [address] [place] [address] Allergies, Adverse Reactions, Alerts Substance Reaction Severity Status Dust Active Medications levothyroxine 137 mcg (0.137 mg) oral capsule 1 capsule = 137 mcg, By Mouth, Daily, # 30 capsule, 2 Refills, Maintenance, 03/25/20 16:29:00 EST, Capsule, [facility] #[id number], Partial fill upon patient request, 170.1, cm, [...]
--- OUTSIDE RECORDS SUMMARY | 2023-04-20 15:18 | XMS_ITS | Continuity of Care Document ---
Author Name Unknown Organization [facility] e Medicine Address [address], 4t [address] [place] [address]- Care Team Providers Care Staff Scientist Name Role Phone Not on Staff, PCP Primary Care Physician Unavail able Encounter [facility] Date(s): 07/11/19 - 07/21/19 [facility] [address], 4th [address] [place] [address] [facility] Attending Physician: Loulou Rob Admitting Physician: AdmLoulou okeefe Referring Physician: Admtr, Ar8 Allergies, Adverse Reactions, Alerts Substance Reaction Severity Status NKA Active Medications Iron Supplement w/Folic Acid Iron Supplement w/Folic Acid, Refills 0, Maintenance, takes sometimes, 03/21/18 12:11:31 EST, [facility] Start Date: 03/21/18 Status: Ordered levothyroxine 112 mcg (0.112 mg) oral capsule 1 capsule = 112 mcg, By Mouth, Daily, 0 Refills, Maintenance, 07/11/19 8:49:00 EST Start Date: 07/11/19 Status: Ordered Social History Social History Type Response Smoking Status Never smoker entered on: 01/19/18 Sex
--- OUTSIDE RECORDS SUMMARY | 2023-04-20 15:18 | XMS_ITS | Continuity of Care Document ---
Author Name Unknown Organization [facility] ter Address [address] [place] [address]- Care Team Providers Care Home Connect Lpn Name Role Phone Not on Staff, PCP Primary Care Physician Unavail able [place] [facility] Date(s): 07/14/20 - 08/13/[address] [address] Attending Physician: Cristal Garrido MD Allergies, Adverse [...] tablet, 0 Refills, Maintenance, 07/12/20 12:08:00 EST, [facility] #[id number], Partial fill upon patient request if the prescription is for a schedule II opioid drug., 1... Start Date: 07/12/20 Stop Date: 07/19/20 Status: Ordered doxycycline hyclate 100 mg oral tablet 1 tablet = 100 mg, By Mouth, 2 times a day, # 28 tablet, 5 Refills, Maintenance, 05/13/20 14:10:00 EST, [facility], Partial fill upon patient request if the prescription is for a scheduleII opioid drug., 170.1, cm, 11/12/20 10:21:00 EST,... Start Date: 05/13/20 Status: Ordered estradiol 0.1 mg/24 hours twice weekly transdermal film, extended release See Instructions, apply 2 patches the day after retrieval and change QOD, # 32 each, 5 Refills, Maintenance, 05/13/20 14:10:00 EST, [facility], Partial fill upon patient request if the prescription is for a schedule II opioid drug., 170.1,... Start Date: 05/13/20 Status: Ordered Gonal-F 1050 units subcutaneous injection = 300 International_Units, Subcutaneous Infusion, Daily, # 3 kit, 5 Refills, Maintenance, 05/13/20 14:10:00 EST, [facility], Partial fill upon patient request if the prescription is for aschedule II opioid drug., 300 International_Units S... Start Date: 05/13/20 Status: Ordered leuprolide 5 mg/mL subcutaneous solution See Instructions, 10 units sc QD, needs for 05/26, # 1 kit, 5 Refills, Maintenance, 05/13/20 14:13:00 EST, [facility], Partial fill upon patient request if the prescription is for a schedule II opioid drug., 170.1, cm, 03/20/20 10:21:00 EST... Start Date: 05/13/20 Status: Ordered levothyroxine 0.137 mg oral tablet 1 tablet, By Mouth, Daily, # 90 tablet, 3 Refills, Maintenance, 06/19/20 9:24:00 EST, [facility] #[id number], 170.1, cm, 03/20/20 10:21:00 EST, Height, 65.9, kg, 10/29/19 13:03:00 EDT, Dry Weight Start Date: 06/19/20 Status: Ordered Menopur 75 intl units subcutaneous injection = 150 International_Units, Subcutaneous Infusion, Daily, # 25 each, 5 Refills, Maintenance, 05/13/20 14:10:00 EST, [facility], Partial fill upon patient request if the prescription is fora schedule II opioid drug., 170.1, cm, 03/20/20 10:... Start Date: 05/13/20 Status: Ordered Ovidrel 250 mcg/0.5 mL subcutaneous solution = 250 mcg, Subcutaneous Injection, Once, # 1 each, 5 Refills, Soft Stop, 05/13/20 14:10:00 EST, Solution, [facility], Partial fill upon patient request if the prescription is for a schedule II opioid drug., 170.1, cm, 03/20/20 10:21:00 EST... Start Date: 05/13/20 Status: Ordered oxyCODONE 5 mg oral tablet 5 mg, 1, tablet, By Mouth, Every 6 hours, PRN, # 8 tablet, Refills 0, Tot. Refills 0, Maintenance, Pain , Severe, 07/12/20 13:53:00 EST, Route to Pharmacy Electronically, [email or web address] #[id number],Partial fill upon patient request, 170.1, cm, 03/20... Start Date: 07/12/20 Status: Ordered Multivitamins See Instructions, Takes By Mouth Every other day, 0 Refills, Maintenance, 03/20/20 10:22:00 EST, Partial fill upon patient request Start Date: 03/20/20 Status: Ordered Prometrium 200 mg oral capsule See Instructions, Insert 1 vaginally TID, # 90 capsule, 5 Refills, Maintenance, 05/13/20 14:10:00 EST, [facility], Partial fill upon patient request [...] Stop, 07/12/20 13:53:00 EST, [facility], [email or web address] #[email or web address]... Start Date: 07/12/20 Status: Ordered Problem List Condition Effective Dates Status Health Status Inform ant Acquired hypothyroidism(Confirmed) Active Bilateral ovarian cysts(Confirmed) Active Dysmenorrhea(Confirmed) Active Endometriosis, severe(Confirmed) Active Female infertility(Confirmed) Active Social History Social History Type Response Smoking Status Never smoker entered on: 01/19/18 Sex
--- OUTSIDE RECORDS SUMMARY | 2023-04-20 15:18 | XMS_ITS | Continuity of Care Document ---
Author Name Unknown Organization [facility] e Medicine Address [address], 4t [address] [place] [address]- Care Team Providers Care Software Design Manager Name Role Phone Not on Staff, PCP Primary Care Physician Unavail able Encounter [facility] Date(s): 03/31/20 - 04/30/20 [facility] [address], 4[address] [place] [id number] Allergies, Adverse Reactions, Alerts Substance Reaction Severity Status Dust Active Medications levothyroxine 137 mcg (0.137 mg) oral capsule 1 capsule = 137 mcg, By Mouth, Daily, # 30 capsule, 2 Refills, Maintenance, 03/25/20 16:29:00 EST, Capsule, [facility] #[id number], Partial fill upon patient request, 170.1, cm, [...]
--- OUTSIDE RECORDS SUMMARY | 2023-04-20 15:18 | XMS_ITS | Continuity of Care Document ---
Author Name Unknown Organization [facility] ter Address [address] [place] [address]- Care Team Providers Care Counter Supply Worker Name Role Phone Cristal Garrido MD Primary Care Physician Encounter [facility] Date(s): 01/18/21 - 07/20/[address] [address]- Discharge Disposition: A-D/C Home Attending Physician: Tasha [...] tablet, 3 Refills, Maintenance, 06/19/20 9:24:00 EST, [email or web address] #[id number], 170.1, cm, 03/20/20 10:21:00 EST, Height, 65.9, [...]
--- OUTSIDE RECORDS SUMMARY | 2023-04-20 15:18 | XMS_ITS | Continuity of Care Document ---
Author Name Unknown Organization [facility] [employer] [facility] Address [address] [place] [address], [address] [place] [address]- Care Team Providers Care Material Specialist Name Role Phone Not on Staff, PCP Primary Care Physician Unavail able [place] [facility] Date(s): 06/24/20 - 07/24/20 [facility] [address] [facility], [address] [place] [address]- Allergies, Adverse Reactions, Alerts Substance Reaction Severity [...] tablet, 0 Refills, Maintenance, 07/12/20 12:08:00 EST, [facility] #[id number], Partial fill upon patient request if the prescription is for a schedule II opioid drug., 1... Start Date: 07/12/20 Stop Date: 07/19/20 Status: Ordered doxycycline hyclate 100 mg oral tablet 1 tablet = 100 mg, By Mouth, 2 times a day, # 28 tablet, 5 Refills, Maintenance, 05/13/20 14:10:00 EST, [facility], Partial fill upon patient request if the prescription is for a scheduleII opioid drug., 170.1, cm, 03/20/20 10:21:00 EST,... Start Date: 05/13/20 Status: Ordered estradiol 0.1 mg/24 hours twice weekly transdermal film, extended release See Instructions, apply 2 patches the day after retrieval and change QOD, # 32 each, 5 Refills, Maintenance, 05/13/20 14:10:00 EST, [facility], Partial fill upon patient request if the prescription is for a schedule II opioid drug., 170.1,... Start Date: 05/13/20 Status: Ordered Gonal-F 1050 units subcutaneous injection = 300 International_Units, Subcutaneous Infusion, Daily, # 3 kit, 5 Refills, Maintenance, 05/13/20 14:10:00 EST, [facility], Partial fill upon patient request if the prescription is for aschedule II opioid drug., 300 International_Units S... Start Date: 05/13/20 Status: Ordered leuprolide 5 mg/mL subcutaneous solution See Instructions, 10 units sc QD, needs for 05/26, # 1 kit, 5 Refills, Maintenance, 05/13/20 14:13:00 EST, [facility], Partial fill upon patient request if the prescription is for a schedule II opioid drug., 170.1, cm, 03/20/20 10:21:00 EST... Start Date: 05/13/20 Status: Ordered levothyroxine 0.137 mg oral tablet 1 tablet, By Mouth, Daily, # 90 tablet, 3 Refills, Maintenance, 06/19/20 9:24:00 EST, [facility] #[id number], 170.1, cm, 03/20/20 10:21:00 EST, Height, 65.9, kg, 10/29/19 13:03:00 EDT, Dry Weight Start Date: 06/19/20 Status: Ordered Menopur 75 intl units subcutaneous injection = 150 International_Units, Subcutaneous Infusion, Daily, # 25 each, 5 Refills, Maintenance, 05/13/20 14:10:00 EST, [facility], Partial fill upon patient request if the prescription is fora schedule II opioid drug., 170.1, cm, 03/20/20 10:... Start Date: 05/13/20 Status: Ordered Ovidrel 250 mcg/0.5 mL subcutaneous solution = 250 mcg, Subcutaneous Injection, Once, # 1 each, 5 Refills, Soft Stop, 05/13/20 14:10:00 EST, Solution, [facility], Partial fill upon patient request if the prescription is for a schedule II opioid drug., 170.1, cm, 03/20/20 10:21:00 EST... Start Date: 05/13/20 Status: Ordered oxyCODONE 5 mg oral tablet 5 mg, 1, tablet, By Mouth, Every 6 hours, PRN, # 8 tablet, Refills 0, Tot. Refills 0, Maintenance, Pain , Severe, 07/12/20 13:53:00 EST, Route to Pharmacy Electronically, [facility] #[id number],Partial fill upon patient request, 170.1, cm, 03/20... Start Date: 07/12/20 Status: Ordered Multivitamins See Instructions, Takes By Mouth Every other day, 0 Refills, Maintenance, 03/20/20 10:22:00 EST, Partial fill upon patient request Start Date: 03/20/20 Status: Ordered Prometrium 200 mg oral capsule See Instructions, Insert 1 vaginally TID, # 90 capsule, 5 Refills, Maintenance, 05/13/20 14:10:00 EST, [facility], Partial fill upon patient [...] Stop, 07/12/20 13:53:00 EST, [facility], [facility] #[facility]... Start Date: 07/12/20 Status: Ordered Problem List Condition Effective Dates Status Health Status Inform ant Acquired hypothyroidism(Confirmed) Active Bilateral ovarian cysts(Confirmed) Active Dysmenorrhea(Confirmed) Active Endometriosis, severe(Confirmed) Active Female infertility(Confirmed) Active Social History Social History Type Response Smoking Status Never smoker entered on: 01/19/18 Sex
--- OUTSIDE RECORDS SUMMARY | 2023-04-20 15:18 | XMS_ITS | Continuity of Care Document ---
Author Name Unknown Organization [facility] e Medicine Address [address], 4t [address] [place] [address]- Care Team Providers Care Custodial Laborer Name Role Phone Not on Staff, PCP Primary Care Physician Unavail able [place] [facility] [place] 06/[place]/20 [facility] Rep[facility] Medicine [address], 4th [address] [place] [id number] Allergies, Adverse Reactions, Alerts Substance Reaction Severity Status Dust Active Medications doxycycline hyclate 100 mg oral tablet 1 tablet = 100 mg, By Mouth, 2 times a day, # 28 tablet, 5 Refills, Maintenance, 05/13/20 14:10:00 EST, [facility], Partial fill upon patient request if the prescription is for a scheduleII opioid drug., 170.1, cm, 03/20/20 10:21:00 EST,... Start Date: 05/13/20 Status: Ordered estradiol 0.1 mg/24 hours twice weekly transdermal film, extended release See Instructions, apply 2 patches the day after retrieval and change QOD, # 32 each, 5 Refills, Maintenance, 05/13/20 14:10:00 EST, [facility], Partial fill upon patient request if the prescription is for a schedule II opioid drug., 170.1,... Start Date: 05/13/20 Status: Ordered Gonal-F 1050 units subcutaneous injection = 300 International_Units, Subcutaneous Infusion, Daily, # 3 kit, 5 Refills, Maintenance, 05/13/20 14:10:00 EST, [facility], Partial fill upon patient request if the prescription is for aschedule II opioid drug., 300 International_Units S... Start Date: 05/13/20 Status: Ordered leuprolide 5 mg/mL subcutaneous solution See Instructions, 10 units sc QD, needs for 05/26, # 1 kit, 5 Refills, Maintenance, 05/13/20 14:13:00 EST, [facility], Partial fill upon patient request if the prescription is for a schedule II opioid drug., 170.1, cm, 03/20/20 10:21:00 EST... Start Date: 05/13/20 Status: Ordered levothyroxine 0.137 mg oral tablet 1 tablet, By Mouth, Daily, # 90 tablet, 3 Refills, Maintenance, 06/19/20 9:24:00 EST, [facility] #[id number], 170.1, cm, 03/20/20 10:21:00 EST, Height, 65.9, kg, 10/29/19 13:03:00 EDT, Dry Weight Start Date: 06/19/20 Status: Ordered Menopur 75 intl units subcutaneous injection = 150 International_Units, Subcutaneous Infusion, Daily, # 25 each, 5 Refills, Maintenance, 05/13/20 14:10:00 EST, [facility], Partial fill upon patient request if the prescription is fora schedule II opioid drug., 170.1, cm, 03/20/20 10:... Start Date: 05/13/20 Status: Ordered Ovidrel 250 mcg/0.5 mL subcutaneous solution = 250 mcg, Subcutaneous Injection, Once, # 1 each, 5 Refills, Soft Stop, 05/13/20 14:10:00 EST, Solution, [facility], Partial fill upon patient [...] capsule, 5 Refills, Maintenance, 05/13/20 14:10:00 EST, [facility], Partial fill upon patient [...]
--- OUTSIDE RECORDS SUMMARY | 2023-04-20 15:18 | XMS_ITS | Continuity of Care Document ---
Author Name Unknown Organization [facility] e Medicine Address [address], 4t [address] [place] [address]- Care Team Providers Care Vegetable Tier Name Role Phone Not on Staff, PCP Primary Care Physician Unavail able [place] [facility] [place] - 07/[place]/20 [facility] Reproductive Medicine [address], 4[address] [place], [place] [address] Attending Physician: Cristal Garrido MD Referring Physician: Eneida Villanueva MD Allergies, [...] tablet, 0 Refills, Maintenance, 07/12/20 12:08:00 EST, [facility][id number], Partial fill upon patient request if the prescription is for a schedule II opioid drug., 1... Start Date: 07/12/20 Stop Date: 07/19/20 Status: Ordered doxycycline hyclate 100 mg oral tablet 1 tablet = 100 mg, By Mouth, 2 times a day, # 28 tablet, 5 Refills, Maintenance, 05/13/20 14:10:00 EST, [facility] each, 5 Refills, Maintenance, 05/13/20 14:10:00 EST, [facility], Partial fill upon patient request if the prescription is for a schedule II opioid drug., 170.1,... Start Date: 05/13/20 Status: Ordered Gonal-F 1050 units subcutaneous injection = 300 International_Units, Subcutaneous Infusion, Daily, # 3 kit, 5 Refills, Maintenance, 05/13/20 14:10:00 EST, [facility], Partial fill upon patient request if the prescription is for aschedule II opioid drug., 300 International_Units S... Start Date: 05/13/20 Status: Ordered leuprolide 5 mg/mL subcutaneous solution See Instructions, 10 units sc QD, needs for 05/26, # 1 kit, 5 Refills, Maintenance, 05/13/20 14:13:00 EST, [facility], Partial fill upon patient request if the prescription is for a schedule II opioid drug., 170.1, cm, 03/20/20 10:21:00 EST... Start Date: 05/13/20 Status: Ordered levothyroxine 0.137 mg oral tablet 1 tablet, By Mouth, Daily, # 90 tablet, 3 Refills, Maintenance, 06/19/20 9:24:00 EST, [facility] #[id number], 170.1, cm, 03/20/20 10:21:00 EST, Height, 65.9, kg, 10/29/19 13:03:00 EDT, Dry Weight Start Date: 06/19/20 Status: Ordered Menopur 75 intl units subcutaneous injection = 150 International_Units, Subcutaneous Infusion, Daily, # 25 each, 5 Refills, Maintenance, 05/13/20 14:10:00 EST, [facility], Partial fill upon patient request if the prescription is fora schedule II opioid drug., 170.1, cm, 03/20/20 10:... Start Date: 05/13/20 Status: Ordered Ovidrel 250 mcg/0.5 mL subcutaneous solution = 250 mcg, Subcutaneous Injection, Once, # 1 each, 5 Refills, Soft Stop, 05/13/20 14:10:00 EST, Solution, [facility], Partial fill [...] 07/12/20 13:53:00 EST, Route to Pharmacy Electronically, [facility][id number],Partial fill upon patient request, 170.1, cm, 03/20... [...] Stop, 07/12/20 13:53:00 EST, [facility], [facility] #[facility]... Start Date: 07/12/20 Status: Ordered Problem List Condition Effective Dates Status Health Status Inform ant Acquired hypothyroidism(Confirmed) Active Bilateral ovarian cysts(Confirmed) Active Dysmenorrhea(Confirmed) Active Endometriosis, severe(Confirmed) Active Female infertility(Confirmed) Active Social History Social History Type Response Smoking Status Never smoker entered on: 01/19/18 Sex
--- OUTSIDE RECORDS SUMMARY | 2023-04-20 15:18 | XMS_ITS | Continuity of Care Document ---
Author Name Unknown Organization [facility] Address [address] [place] [address], [address], [place] [address]- Care Team Providers Care Silver Buffer Name Role Phone Not on Staff, PCP Primary Care Physician Unavail able Encounter [facility] [place] Date(s): 06/03/20 - 07/03/20 [facility] [address], [address] [place] [address]- Allergies, Adverse Reactions, Alerts Substance Reaction Severity [...] tablet, 3 Refills, Maintenance, 06/19/20 9:24:00 EST, [facility] #[id number], 170.1, cm, 03/20/20 10:21:00 EST, Height, 65.9, [...]
--- OUTSIDE RECORDS SUMMARY | 2023-04-20 15:18 | XMS_ITS | Continuity of Care Document ---
Author Name Unknown Organization [facility] Address [address] [place] [address]- Care Team Providers Care Feed Project Engineer Name Role Phone Cristal Garrido MD Primary Care Physician [id number] Date[facility] - 01/24/22 [facility] [address] [place] [address]- Discharge Disposition: A-D/C Home Attending Physician: Mario Brown MD Admitting Physician: Mario Brown MD Referring Physician: Cristal Garrido MD Allergies, Adverse Reactions, Alerts Substance Reaction Severity Status Dust Active Immunizations Given and Recorded Vaccine Date Status Refusal Reason SARS-CoV-2 (COVID-19) Ad26 vaccine 01/16/21 Given Medications levothyroxine 0.137 mg oral tablet 1 tablet, By Mouth, Daily, # 90 tablet, 3 Refills, Maintenance, 06/19/20 9:24:00 EST, [facility] #[id number], 170.1, cm, 03/20/20 10:21:00 EST, Height, 65.9, [...] Status Never smoker entered on: 01/19/18 Sex Care Team Personnel Name: Cristal Garrido MD Address: [address] [facility], [address] [place] [address] [address] [facility] [place], [place] [address]
--- OUTSIDE RECORDS SUMMARY | 2023-04-20 15:18 | XMS_ITS | Continuity of Care Document ---
Author Name Unknown Organization [facility] Address [address] [place] [address]- Care Team Providers Care Vice President & General Manager [employer] Name Role Phone Radhika HERNANDEZ, Cristal Primary Care Physician [place] [facility] [place] Date(s): 01/01/21 - 01/31/21 [facility] [address] [place] [id number] Allergies, Adverse Reactions, Alerts Substance Reaction Severity Status Dust Active Immunizations Given and Recorded Vaccine Date Status Refusal Reason SARS-CoV-2 (COVID-19) Ad26 vaccine 01/16/21 Given Medications Colace sodium 100 mg oral capsule 100 mg, 1, capsule, By Mouth, 2 times a day, # 60 capsule, Refills 0, Tot. Refills 0, Maintenance, 01/16/21 5:11:00 EDT, Route to Pharmacy Electronically, [facility], Partial fill upon patient request if the prescription is for a schedul... Start Date: 01/16/21 Status: Ordered enoxaparin 120 mg/0.8 mL injectable solution 0.7 mL = 105 mg, Subcutaneous Injection, Every 24 hours, for 21 days, # 14.7 mL, 0 Refills, Acute 02/06/21 5:11:00 EDT, 01/16/21 5:11:00 EDT, Injection, [facility], Partial fill upon patient request if the prescription is for a schedule... Start Date: 01/16/21 Stop Date: 02/06/21 Status: Ordered levothyroxine 0.137 mg oral tablet 1 tablet, By Mouth, Daily, # 90 tablet, 3 Refills, Maintenance, 06/19/20 9:24:00 EST, [facility] #[id number], 170.1, cm, 03/20/20 10:21:00 EST, Height, 65.9, kg, 10/29/19 13:03:00 EDT, Dry Weight Start Date: 06/19/20 Status: Ordered oxyCODONE 5 mg oral tablet 5 mg, 1, tablet, By Mouth, Every 6 hours, PRN, # 12 tablet, Refills 0, Tot. Refills 0, Maintenance,as needed for pain, 01/16/21 5:12:00 EDT, Route to Pharmacy Electronically, [facility], Partial fill upon patient request, 170, [...] Gas, 215:11:00 EDT, Route to Pharmacy Electronically, [facility], Partial fill upon patient request if the prescription is for a schedule II opi... Start Date: 01/16/21 Status: Ordered Tylenol 325 mg oral tablet 975 mg, 3, tablet, By Mouth, Every 6 hours, PRN, # 12 tablet, Refills 0, Tot. Refills 0, Maintenance, Pain , Moderate, 01/16/21 5:11:00 EDT, Route to Pharmacy Electronically, [facility], Partial fill upon patient request if the prescript... Start Date: 01/16/21 Status: Ordered Problem List Condition Effective Dates Status Health Status Inform ant Acquired hypothyroidism(Confirmed) Active Bilateral ovarian cysts(Confirmed) Active Dysmenorrhea(Confirmed) Active Endometriosis, severe(Confirmed) Active Female infertility(Confirmed) Active Social History Social History Type Response Smoking Status Never smoker entered on: 01/19/18 Sex
--- OUTSIDE RECORDS SUMMARY | 2023-04-20 15:18 | XMS_ITS | Continuity of Care Document ---
Author Name Unknown Organization [facility] [employer] [employer] [employer] [facility] Address [address] [place] [address], [address] [place] [address]- Care Team Providers Care Fishing Rod Marker Name Role Phone Radhika HERNANDEZ, Cristal Primary Care Physician [place] [facility] [place]16[place]20 [place] 08/15/20 [facility] [employer] [facility] [address], [address] [place] [address]- Allergies, Adverse Reactions, Alerts Substance Reaction Severity [...] tablet, 0 Refills, Maintenance, 07/12/20 12:08:00 EST, [facility] #[id number], Partial fill upon patient request if the prescription is for a schedule II opioid drug., 1... Start Date: 07/12/20 Stop Date: 07/19/20 Status: Ordered doxycycline hyclate 100 mg oral tablet 1 tablet = 100 mg, By Mouth, 2 times a day, # 28 tablet, 5 Refills, Maintenance, 05/13/20 14:10:00 EST, [facility], Partial fill upon patient request if the prescription is for a scheduleII opioid drug., 170.1, cm, 03/20/20 10:21:00 EST,... Start Date: 05/13/20 Status: Ordered estradiol 0.1 mg/24 hours twice weekly transdermal film, extended release See Instructions, apply 2 patches the day after retrieval and change QOD, # 32 each, 5 Refills, Maintenance, 05/13/20 14:10:00 EST, [facility], Partial fill upon patient request if the prescription is for a schedule II opioid drug., 170.1,... Start Date: 05/13/20 Status: Ordered Gonal-F 1050 units subcutaneous injection = 300 International_Units, Subcutaneous Infusion, Daily, # 3 kit, 5 Refills, Maintenance, 05/13/20 14:10:00 EST, [facility], Partial fill upon patient request if the prescription is for aschedule II opioid drug., 300 International_Units S... Start Date: 05/13/20 Status: Ordered leuprolide 5 mg/mL subcutaneous solution See Instructions, 10 units sc QD, needs for 05/26, # 1 kit, 5 Refills, Maintenance, 05/13/20 14:13:00 EST, [facility], Partial fill upon patient request if the prescription is for a schedule II opioid drug., 170.1, cm, 03/20/20 10:21:00 EST... Start Date: 05/13/20 Status: Ordered levothyroxine 0.137 mg oral tablet 1 tablet, By Mouth, Daily, # 90 tablet, 3 Refills, Maintenance, 06/19/20 9:24:00 EST, [facility] #[id number], 170.1, cm, 03/20/20 10:21:00 EST, Height, 65.9, kg, 10/29/19 13:03:00 EDT, Dry Weight Start Date: 06/19/20 Status: Ordered Menopur 75 intl units subcutaneous injection = 150 International_Units, Subcutaneous Infusion, Daily, # 25 each, 5 Refills, Maintenance, 05/13/20 14:10:00 EST, [facility], Partial fill upon patient request if the prescription is fora schedule II opioid drug., 170.1, cm, 03/20/20 10:... Start Date: 05/13/20 Status: Ordered Ovidrel 250 mcg/0.5 mL subcutaneous solution = 250 mcg, Subcutaneous Injection, Once, # 1 each, 5 Refills, Soft Stop, 05/13/20 14:10:00 EST, Solution, [facility], Partial fill upon patient request if the prescription is for a schedule II opioid drug., 170.1, cm, 03/20/20 10:21:00 EST... Start Date: 05/13/20 Status: Ordered oxyCODONE 5 mg oral tablet 5 mg, 1, tablet, By Mouth, Every 6 hours, PRN, # 8 tablet, Refills 0, Tot. Refills 0, Maintenance, Pain , Severe, 07/12/20 13:53:00 EST, Route to Pharmacy Electronically, [facility] #[id number],Partial fill upon patient request, 170.1, cm, 03/20... Start Date: 07/12/20 Status: Ordered Multivitamins See Instructions, Takes By Mouth Every other day, 0 Refills, Maintenance, 03/20/20 10:22:00 EST, Partial fill upon patient request Start Date: 03/20/20 Status: Ordered Prometrium 200 mg oral capsule See Instructions, Insert 1 vaginally TID, # 90 capsule, 5 Refills, Maintenance, 05/13/20 14:10:00 EST, [facility], Partial fill upon patient [...] Stop, 07/12/20 13:53:00 EST, [facility], [facility] #0... Start Date: 07/12/20 Status: Ordered Problem List Condition Effective Dates Status Health Status Inform ant Acquired hypothyroidism(Confirmed) Active Bilateral ovarian cysts(Confirmed) Active Dysmenorrhea(Confirmed) Active Endometriosis, severe(Confirmed) Active Female infertility(Confirmed) Active Social History Social History Type Response Smoking Status Never smoker entered on: 01/19/18 Sex
--- OUTSIDE RECORDS SUMMARY | 2023-04-20 15:18 | XMS_ITS | Continuity of Care Document ---
Author Name Unknown Organization [facility] Address [address] [place] [address], [address] [place] [address]- Care Team Providers Care Market Sales Manager Name Role Phone Not on Staff, PCP Primary Care Physician Unavail able [place] [facility] [place] 07/11/20 - 08/10/20 [facility] [address] [facility], [address] [place] [address]- Allergies, Adverse Reactions, Alerts Substance Reaction Severity [...] tablet, 0 Refills, Maintenance, 07/12/20 12:08:00 EST, [email or web address][id number], Partial fill upon patient request if the prescription is for a schedule II opioid drug., 1... Start Date: 07/12/20 Stop Date: 07/19/20 Status: Ordered doxycycline hyclate 100 mg oral tablet 1 tablet = 100 mg, By Mouth, 2 times a day, # 28 tablet, 5 Refills, Maintenance, 05/13/20 14:10:00 EST, [facility], Partial fill upon patient request if the prescription is for a scheduleII opioid drug., 170.1, cm, 03/20/20 10:21:00 EST,... Start Date: 05/13/20 Status: Ordered estradiol 0.1 mg/24 hours twice weekly transdermal film, extended release See Instructions, apply 2 patches the day after retrieval and change QOD, # 32 each, 5 Refills, Maintenance, 05/13/20 14:10:00 EST, [facility], Partial fill upon patient request if the prescription is for a schedule II opioid drug., 170.1,... Start Date: 05/13/20 Status: Ordered Gonal-F 1050 units subcutaneous injection = 300 International_Units, Subcutaneous Infusion, Daily, # 3 kit, 5 Refills, Maintenance, 05/13/20 14:10:00 EST, [facility], Partial fill upon patient request if the prescription is for aschedule II opioid drug., 300 International_Units S... Start Date: 05/13/20 Status: Ordered leuprolide 5 mg/mL subcutaneous solution See Instructions, 10 units sc QD, needs for 05/26, # 1 kit, 5 Refills, Maintenance, 05/13/20 14:13:00 EST, [facility], Partial fill upon patient request if the prescription is for a schedule II opioid drug., 170.1, cm, 03/20/20 10:21:00 EST... Start Date: 05/13/20 Status: Ordered levothyroxine 0.137 mg oral tablet 1 tablet, By Mouth, Daily, # 90 tablet, 3 Refills, Maintenance, 06/19/20 9:24:00 EST, [email or web address] #[id number], 170.1, cm, 03/20/20 10:21:00 EST, Height, 65.9, kg, 10/29/19 13:03:00 EDT, Dry Weight Start Date: 06/19/20 Status: Ordered Menopur 75 intl units subcutaneous injection = 150 International_Units, Subcutaneous Infusion, Daily, # 25 each, 5 Refills, Maintenance, 05/13/20 14:10:00 EST, [facility], Partial fill upon patient request if the prescription is fora schedule II opioid drug., 170.1, cm, 03/20/20 10:... Start Date: 05/13/20 Status: Ordered Ovidrel 250 mcg/0.5 mL subcutaneous solution = 250 mcg, Subcutaneous Injection, Once, # 1 each, 5 Refills, Soft Stop, 05/13/20 14:10:00 EST, Solution, [facility], Partial fill upon patient request if the prescription is for a schedule II opioid drug., 170.1, cm, 03/20/20 10:21:00 EST... Start Date: 05/13/20 Status: Ordered oxyCODONE 5 mg oral tablet 5 mg, 1, tablet, By Mouth, Every 6 hours, PRN, # 8 tablet, Refills 0, Tot. Refills 0, Maintenance, Pain , Severe, 07/12/20 13:53:00 EST, Route to Pharmacy Electronically, [facility] #[id number],Partial fill upon patient request, 170.1, cm, 03/20... Start Date: 07/12/20 Status: Ordered Multivitamins See Instructions, Takes By Mouth Every other day, 0 Refills, Maintenance, 03/20/20 10:22:00 EST, Partial fill upon patient request Start Date: 03/20/20 Status: Ordered Prometrium 200 mg oral capsule See Instructions, Insert 1 vaginally TID, # 90 capsule, 5 Refills, Maintenance, 05/13/20 14:10:00 EST, [facility], Partial fill upon [...] Stop, 07/12/20 13:53:00 EST, [facility], [facility]0... Start Date: 07/12/20 Status: Ordered Problem List Condition Effective Dates Status Health Status Inform ant Acquired hypothyroidism(Confirmed) Active Bilateral ovarian cysts(Confirmed) Active Dysmenorrhea(Confirmed) Active Endometriosis, severe(Confirmed) Active Female infertility(Confirmed) Active Social History Social History Type Response Smoking Status Never smoker entered on: 01/19/18 Sex
--- OUTSIDE RECORDS SUMMARY | 2023-04-20 15:18 | XMS_ITS | Continuity of Care Document ---
Author Name Unknown Organization [facility] e Medicine Address [address] [facility] [address] [facility], 4t [address] [place] [address]- Care Team Providers Care Airport Operations Coordinator Name Role Phone Radhika HERNANDEZ, Cristal Primary Care Physician [phone] Encounter [facility] [place] Date(s): 09/16/20 - 09/23/20 [facility] [address] [facility] [address] [facility], 4th [address] [place] [address]- Attending Physician: Not on Staff, Attending MD [...] tablet, 3 Refills, Maintenance, 06/19/20 9:24:00 EST, [facility] #[id number], 170.1, cm, 03/20/20 10:21:00 EST, Height, 65.9, [...] mL, 5 Refills, Maintenance, 08/18/20 17:36:00 EDT, [facility], Partial fill upon [...]
--- OUTSIDE RECORDS SUMMARY | 2023-04-20 15:18 | XMS_ITS | Continuity of Care Document ---
Author Name Unknown Organization [facility] Address [address] [place] [address], [address], [place] [address]- Care Team Providers Care Operations Director Name Role Phone Not on Staff, PCP Primary Care Physician Unavail able Encounter [facility] [place] Date(s): 06/03/20 - 07/03/20 [facility] [address] [facility], [address] [place] [address]- Allergies, Adverse Reactions, Alerts Substance Reaction Severity [...] tablet, 5 Refills, Maintenance, 05/13/20 14:10:00 EST, [facility], Partial fill upon patient request if the prescription is for a scheduleII opioid drug., 170.1, cm, 03/20/20 10:21:00 EST,... Start Date: 05/13/20 Status: Ordered estradiol 0.1 mg/24 hours twice weekly transdermal film, extended release See Instructions, apply 2 patches the day after retrieval and change QOD, # 32 each, 5 Refills, Maintenance, 05/13/20 14:10:00 EST, [facility], Partial fill upon patient request if the prescription is for a schedule II opioid drug., 170.1,... Start Date: 05/13/20 Status: Ordered Gonal-F 1050 units subcutaneous injection = 300 International_Units, Subcutaneous Infusion, Daily, # 3 kit, 5 Refills, Maintenance, 05/13/20 14:10:00 EST, [facility], Partial fill upon patient request if the prescription is for aschedule II opioid drug., 300 International_Units S... Start Date: 05/13/20 Status: Ordered leuprolide 5 mg/mL subcutaneous solution See Instructions, 10 units sc QD, needs for 05/26, # 1 kit, 5 Refills, Maintenance, 05/13/20 14:13:00 EST, [facility], Partial fill upon patient request if the prescription is for a schedule II opioid drug., 170.1, cm, 03/20/20 10:21:00 EST... Start Date: 05/13/20 Status: Ordered levothyroxine 0.137 mg oral tablet 1 tablet, By Mouth, Daily, # 90 tablet, 3 Refills, Maintenance, 06/19/20 9:24:00 EST, [facility] #[id number], 170.1, cm, 03/20/20 10:21:00 EST, Height, 65.9, kg, 10/29/19 13:03:00 EDT, Dry Weight Start Date: 06/19/20 Status: Ordered Menopur 75 intl units subcutaneous injection = 150 International_Units, Subcutaneous Infusion, Daily, # 25 each, 5 Refills, Maintenance, 05/13/20 14:10:00 EST, [facility], Partial fill upon patient request if the prescription is fora schedule II opioid drug., 170.1, cm, 03/20/20 10:... Start Date: 05/13/20 Status: Ordered Ovidrel 250 mcg/0.5 mL subcutaneous solution = 250 mcg, Subcutaneous Injection, Once, # 1 each, 5 Refills, Soft Stop, 05/13/20 14:10:00 EST, Solution, [facility], Partial fill [...] capsule, 5 Refills, Maintenance, 05/13/20 14:10:00 EST, [facility], Partial fill [...]
--- OUTSIDE RECORDS SUMMARY | 2023-04-20 15:18 | XMS_ITS | Continuity of Care Document ---
Author Name Unknown Organization [facility] Address [address] [place] [address], [address] [address]- Care Team Providers Care Nurse Ldr Name Role Phone Not on Staff, PCP Primary Care Physician Unavail able [place] [facility] [place] - [facility]/27/20 [facility] [address] [facility], [address] [place] [address]- Allergies, Adverse Reactions, Alerts Substance Reaction Severity Status Dust Active Medications doxycycline hyclate 100 mg oral tablet 1 tablet = 100 mg, By Mouth, 2 times a day, # 28 tablet, 5 Refills, Maintenance, 05/13/20 14:10:00 EST, [facility], Partial fill upon patient request if the prescription is for a scheduleII opioid drug., 170.1, cm, 03/20/20 10:21:00 EST,... Start Date: 05/13/20 Status: Ordered estradiol 0.1 mg/24 hours twice weekly transdermal film, extended release See Instructions, apply 2 patches the day after retrieval and change QOD, # 32 each, 5 Refills, Maintenance, 05/13/20 14:10:00 EST, [facility], Partial fill upon patient request if the prescription is for a schedule II opioid drug., 170.1,... Start Date: 05/13/20 Status: Ordered Gonal-F 1050 units subcutaneous injection = 300 International_Units, Subcutaneous Infusion, Daily, # 3 kit, 5 Refills, Maintenance, 05/13/20 14:10:00 EST, [facility], Partial fill upon patient request if the prescription is for aschedule II opioid drug., 300 International_Units S... Start Date: 05/13/20 Status: Ordered leuprolide 5 mg/mL subcutaneous solution See Instructions, 10 units sc QD, needs for 1/18, # 1 kit, 5 Refills, Maintenance, 05/13/20 14:13:00 EST, [facility], Partial fill upon patient request if the prescription is for a schedule II opioid drug., 170.1, cm, 03/20/20 10:21:00 EST... Start Date: 05/13/20 Status: Ordered levothyroxine 0.137 mg oral tablet 1 tablet, By Mouth, Daily, # 90 tablet, 3 Refills, Maintenance, 06/19/20 9:24:00 EST, [facility][id number], 170.1, cm, 03/20/20 10:21:00 EST, Height, 65.9, kg, 10/29/19 13:03:00 EDT, Dry Weight Start Date: 06/19/20 Status: Ordered Menopur 75 intl units subcutaneous injection = 150 International_Units, Subcutaneous Infusion, Daily, # 25 each, 5 Refills, Maintenance, 05/13/20 14:10:00 EST, [facility], Partial fill upon patient request if the prescription is fora schedule II opioid drug., 170.1, cm, 03/20/20 10:... Start Date: 05/13/20 Status: Ordered Ovidrel 250 mcg/0.5 mL subcutaneous solution = 250 mcg, Subcutaneous Injection, Once, # 1 each, 5 Refills, Soft Stop, 05/13/20 14:10:00 EST, Solution, [facility], Partial fill [...] capsule, 5 Refills, Maintenance, 05/13/20 14:10:00 EST, [facility], Partial fill [...]
--- OUTSIDE RECORDS SUMMARY | 2023-04-20 15:18 | XMS_ITS | Continuity of Care Document ---
Author Name Unknown Organization [facility] Address [address] [place] [address], [address] [place] [address]- Care Team Providers Care Circuit Recorder Name Role Phone Not on Staff, PCP Primary Care Physician Unavail able Encounter [facility] [place] Date(s): 06/23/20 - 07/23/20 [facility] [address] [facility], [address] [place] [address]- Allergies, Adverse Reactions, Alerts Substance Reaction Severity [...] tablet, 0 Refills, Maintenance, 07/12/20 12:08:00 EST, [facility][id number], Partial fill upon patient request if the prescription is for a schedule II opioid drug., 1... Start Date: 07/12/20 Stop Date: 07/19/20 Status: Ordered doxycycline hyclate 100 mg oral tablet 1 tablet = 100 mg, By Mouth, 2 times a day, # 28 tablet, 5 Refills, Maintenance, 05/13/20 14:10:00 EST, [facility], Partial fill upon patient request if the prescription is for a scheduleII opioid drug., 170.1, cm, 03/20/20 10:21:00 EST,... Start Date: 05/13/20 Status: Ordered estradiol 0.1 mg/24 hours twice weekly transdermal film, extended release See Instructions, apply 2 patches the day after retrieval and change QOD, # 32 each, 5 Refills, Maintenance, 05/13/20 14:10:00 EST, [facility], Partial fill upon patient request if the prescription is for a schedule II opioid drug., 170.1,... Start Date: 05/13/20 Status: Ordered Gonal-F 1050 units subcutaneous injection = 300 International_Units, Subcutaneous Infusion, Daily, # 3 kit, 5 Refills, Maintenance, 05/13/20 14:10:00 EST, [facility], Partial fill upon patient request if the prescription is for aschedule II opioid drug., 300 International_Units S... Start Date: 05/13/20 Status: Ordered leuprolide 5 mg/mL subcutaneous solution See Instructions, 10 units sc QD, needs for 05/26, # 1 kit, 5 Refills, Maintenance, 05/13/20 14:13:00 EST, [facility], Partial fill upon patient request if the prescription is for a schedule II opioid drug., 170.1, cm, 03/20/20 10:21:00 EST... Start Date: 05/13/20 Status: Ordered levothyroxine 0.137 mg oral tablet 1 tablet, By Mouth, Daily, # 90 tablet, 3 Refills, Maintenance, 06/19/20 9:24:00 EST, [facility] #[id number], 170.1, cm, 03/20/20 10:21:00 EST, Height, 65.9, kg, 10/29/19 13:03:00 EDT, Dry Weight Start Date: 06/19/20 Status: Ordered Menopur 75 intl units subcutaneous injection = 150 International_Units, Subcutaneous Infusion, Daily, # 25 each, 5 Refills, Maintenance, 05/13/20 14:10:00 EST, [facility], Partial fill upon patient request if the prescription is fora schedule II opioid drug., 170.1, cm, 03/20/20 10:... Start Date: 05/13/20 Status: Ordered Ovidrel 250 mcg/0.5 mL subcutaneous solution = 250 mcg, Subcutaneous Injection, Once, # 1 each, 5 Refills, Soft Stop, 05/13/20 14:10:00 EST, Solution, [facility], Partial fill upon patient request if the prescription is for a schedule II opioid drug., 170.1, cm, 03/20/20 10:21:00 EST... Start Date: 05/13/20 Status: Ordered oxyCODONE 5 mg oral tablet 5 mg, 1, tablet, By Mouth, Every 6 hours, PRN, # 8 tablet, Refills 0, Tot. Refills 0, Maintenance, Pain , Severe, 07/12/20 13:53:00 EST, Route to Pharmacy Electronically, [email or web address] #[id number],Partial fill upon patient request, 170.1, cm, 03/20... Start Date: 07/12/20 Status: Ordered Multivitamins See Instructions, Takes By Mouth Every other day, 0 Refills, Maintenance, 03/20/20 10:22:00 EST, Partial fill upon patient request Start Date: 03/20/20 Status: Ordered Prometrium 200 mg oral capsule See Instructions, Insert 1 vaginally TID, # 90 capsule, 5 Refills, Maintenance, 05/13/20 14:10:00 EST, [facility], Partial fill upon patient request [...] Stop, 07/12/20 13:53:00 EST, [facility], [facility]... Start Date: 07/12/20 Status: Ordered Problem List Condition Effective Dates Status Health Status Inform ant Acquired hypothyroidism(Confirmed) Active Bilateral ovarian cysts(Confirmed) Active Dysmenorrhea(Confirmed) Active Endometriosis, severe(Confirmed) Active Female infertility(Confirmed) Active Social History Social History Type Response Smoking Status Never smoker entered on: 01/19/18 Sex
--- OUTSIDE RECORDS SUMMARY | 2023-04-20 15:18 | XMS_ITS | Continuity of Care Document ---
Author Name Unknown Organization [facility] ter Address [address] [place] [address]- Care Team Providers Care Flux Plant Operator Name Role Phone Radhika HERNANDEZ, Cristal Primary Care Physician Encounter [facility] [place] Date(s): 11/30/20 - 02/13/[address] [address] Attending Physician: Constance Alvares DO Referring Physician: Constance Alvares DO Allergies, Adverse Reactions, Alerts Substance Reaction Severity Status Dust Active Immunizations Given and Recorded Vaccine Date Status Refusal Reason SARS-CoV-2 (COVID-19) Ad26 vaccine 01/16/21 Given Medications enoxaparin 100 mg/mL injectable solution 1 mL = 100 mg, Subcutaneous Injection, Daily, for 21 days, # 21 mL, 1 Refills, Acute 03/26/21 14:21:00 EST, 02/12/21 14:21:00 EDT, Solution, [facility], Partial fill upon patient request if the prescription is for a schedule II opioid . Start Date: 02/12/21 Stop Date: 03/26/21 Status: Ordered levothyroxine 0.137 mg oral tablet 1 tablet, By Mouth, Daily, # 90 tablet, 3 Refills, Maintenance, 06/19/20 9:24:00 EST, [facility] #[id number], 170.1, cm, 03/20/20 10:21:00 EST, Height, 65.9, [...]
--- OUTSIDE RECORDS SUMMARY | 2023-04-20 15:18 | XMS_ITS | Continuity of Care Document ---
Author Name Unknown Organization [facility] Address [address] [place] [address]- Care Team Providers Care Novelty Printing Machine Operator Name Role Phone Radhika HERNANDEZ, Cristal Primary Care Physician [phone] Encounter [facility] [place] Date(s): 05/27/21 - 06/26/21 [facility] [address] [place] [address]- Attending Physician: Loulou Rob Admitting Physician: AdmLoulou okeefe Referring Physician: Admtr, Loulou Allergies, Adverse Reactions, Alerts Substance Reaction Severity Status Dust Active Immunizations Given and Recorded Vaccine Date Status Refusal Reason SARS-CoV-2 (COVID-19) Ad26 vaccine 01/16/21 Given Medications levothyroxine 0.137 mg oral tablet 1 tablet, By Mouth, Daily, # 90 tablet, 3 Refills, Maintenance, 06/19/20 9:24:00 EST, [facility] #[id number], 170.1, cm, 03/20/20 10:21:00 EST, Height, 65.9, [...]
--- OUTSIDE RECORDS SUMMARY | 2023-04-20 15:18 | XMS_ITS | Continuity of Care Document ---
Author Name Unknown Organization [facility] Address [address] [place] [address]- Care Team Providers Care Street Cleaning Equipment Operator Name Role Phone Radhika HERNANDEZ, Cristal Primary Care Physician Encounter [facility] [place] Date(s): 12/27/20 - 12/28/[address] [address] Discharge Disposition: A-D/C Home Attending Physician: Fabio Sadler MD Admitting Physician: Constance Alvares DO Referring Physician: Constance Alvares DO Allergies, Adverse Reactions, Alerts Substance Reaction Severity Status Dust Active Medications enoxaparin 120 mg/0.8 mL injectable solution 0.8 mL = 120 mg, Subcutaneous Injection, Daily, for 30 days, # 24 mL, 1 Refills, Acute 02/26/21 8:17:00 EDT, 12/28/20 8:17:00 EDT, Injection, [facility] #[id number], Partial fill upon patient request if the prescription is for a schedule II opioi... Start Date: 12/28/20 Stop Date: 02/26/21 Status: Ordered levothyroxine 0.137 mg oral tablet 1 tablet, By Mouth, Daily, # 90 tablet, 3 Refills, Maintenance, 06/19/20 9:24:00 EST, [facility] #[id number], 170.1, cm, 03/20/20 10:21:00 EST, Height, 65.9, [...] recent to oldest [Reference Range]: 1 2 3 Height 170 cm (12/28/20 3:34 AM) 170 cm (12/27/20 11:55 PM) Weight 80.5 kg (12/27/20 11:55 PM) 75.2 kg (12/27/20 6:14 PM) Oxygen Saturation [94-100 %] 98 % (12/28/20 6:00 AM) 99 % (12/28/20 3:34 AM) 97 % (12/27/20 11:55 PM) Pulse Rate [55-90 bpm] 106 bpm *H* (12/28/20 6:00 AM) 72 bpm (12/28/20 3:34 AM) 73 bpm (12/27/20 11:55 PM) Body Mass Index [18.5-24.99] 27.85 *H* (12/27/20 11:55 PM) Blood Pressure [90-138/55-84 mm Hg] 120/56mm Hg (12/28/20 6:00 AM) 113/56mm Hg (12/28/20 3:34 AM) 111/63mm Hg (12/27/20 11:55 PM) Respiratory Rate [16-30 br/min] 17 br/min (12/28/20 6:00 AM) 18 br/min (12/28/20 3:34 AM) 18 br/min (12/27/20 11:55 PM) Temperature [96.8-100.4 DegF] 98.1 DegF (12/28/20 6:00 AM) 98.3 DegF (12/28/20 3:34 AM) 98.2 DegF (12/27/20 11:55 PM) Mode of Delivery (Oxygen) Room air (12/28/20 6:00 AM) Room air (12/28/20 3:34 AM) Room air (12/27/20 11:55 PM) Blood pressure sites Arm, right (12/28/20 6:00 AM) Arm, right (12/28/20 3:34 AM) Arm, left (12/27/20 11:55 PM) Temperature Route Oral (12/28/20 6:00 AM) Oral (12/28/20 3:34 AM) Oral (12/27/20 11:55 PM) Dry Weight 80.5 kg (12/27/20 11:55 PM) 75.2 kg (12/27/20 6:14 PM) Weight Obtained Via Bed scale (12/27/20 11:55 PM) Standing scale (12/27/20 6:14 PM) Dry Weight Obtained Via Bed scale (12/27/20 11:55 PM) Standing scale (12/27/20 6:14 PM) Social History Social History Type Response Smoking Status Never smoker entered on: 01/19/18 Sex
--- OUTSIDE RECORDS SUMMARY | 2023-04-20 15:18 | XMS_ITS | Continuity of Care Document ---
Author Name Unknown Organization [facility] Address [address] [place] [address], [address] [place] [address]- Care Team Providers Care Senior Php Software Developer Name Role Phone Not on Staff, PCP Primary Care Physician Unavail able En[place] [facility] [place] Date(s): 05/05/20 - 06/04/20 [facility] [address] [facility], [address] [place], [place] [address] Allergies, Adverse Reactions, Alerts Substance Reaction Severity Status Dust Active Medications doxycycline hyclate 100 mg oral tablet 1 tablet = 100 mg, By Mouth, 2 times a day, # 28 tablet, 5 Refills, Maintenance, 05/13/20 14:10:00 EST, [facility], Partial fill upon patient request if the prescription is for a scheduleII opioid drug., 170.1, cm, 03/20/20 10:21:00 EST,... Start Date: 05/13/20 Status: Ordered estradiol 0.1 mg/24 hours twice weekly transdermal film, extended release See Instructions, apply 2 patches the day after retrieval and change QOD, # 32 each, 5 Refills, Maintenance, 05/13/20 14:10:00 EST, [facility], Partial fill upon patient request if the prescription is for a schedule II opioid drug., 170.1,... Start Date: 05/13/20 Status: Ordered Gonal-F 1050 units subcutaneous injection = 300 International_Units, Subcutaneous Infusion, Daily, # 3 kit, 5 Refills, Maintenance, 05/13/20 14:10:00 EST, [facility], Partial fill upon patient request if the prescription is for aschedule II opioid drug., 300 International_Units S... Start Date: 05/13/20 Status: Ordered leuprolide 5 mg/mL subcutaneous solution See Instructions, 10 units sc QD, needs for 05/26, # 1 kit, 5 Refills, Maintenance, 05/13/20 14:13:00 EST, [facility], Partial fill upon patient request if the prescription is for a schedule II opioid drug., 170.1, cm, 03/20/20 10:21:00 EST... Start Date: 05/13/20 Status: Ordered levothyroxine 137 mcg (0.137 mg) oral capsule 1 capsule = 137 mcg, By Mouth, Daily, # 30 capsule, 2 Refills, Maintenance, 03/25/20 16:29:00 EST, Capsule, [email or web address] #[id number], Partial fill upon patient request, 170.1, cm, 03/20/20 10:21:00 EST, Height, 65.9, kg, 10/29/19 13:03:00 EDT, Dry... Start Date: 03/25/20 Status: Ordered Menopur 75 intl units subcutaneous injection = 150 International_Units, Subcutaneous Infusion, Daily, # 25 each, 5 Refills, Maintenance, 05/13/20 14:10:00 EST, [facility], Partial fill upon patient request if the prescription is fora schedule II opioid drug., 170.1, cm, 03/20/20 10:... Start Date: 05/13/20 Status: Ordered Ovidrel 250 mcg/0.5 mL subcutaneous solution = 250 mcg, Subcutaneous Injection, Once, # 1 each, 5 Refills, Soft Stop, 05/13/20 14:10:00 EST, Solution, [facility], Partial fill upon [...] capsule, 5 Refills, Maintenance, 05/13/20 14:10:00 EST, [facility], Partial fill upon [...]
--- OUTSIDE RECORDS SUMMARY | 2023-04-20 15:18 | XMS_ITS | Continuity of Care Document ---
Author Name Unknown Organization [facility] Address [address] [place] [address]- Care Team Providers Care Dinkey Engineer Name Role Phone Cristal Garrido MD Primary Care Physician [phone] [place] [facility] [place]s): 02/03/21 - 05/10/21 [facility] [address] [place] [address]- Attending Physician: Lukasz Barrow MD Admitting Physician: Lukasz Barrow MD Referring Physician: Stephanie HERNANDEZ, Mario Allergies, Adverse Reactions, Alerts Substance Reaction Severity Status Dust Active Immunizations Given and Recorded Vaccine Date Status Refusal Reason SARS-CoV-2 (COVID-19) Ad26 vaccine 01/16/21 Given Medications levothyroxine 0.137 mg oral tablet 1 tablet, By Mouth, Daily, # 90 tablet, 3 Refills, Maintenance, 06/19/20 9:24:00 EST, [facility] #[id number], 170.1, cm, 03/20/20 10:21:00 EST, Height, 65.9, [...]
--- OUTSIDE RECORDS SUMMARY | 2023-04-20 15:18 | XMS_ITS | Continuity of Care Document ---
Author Name Unknown Organization [facility] Address [address] [facility], [address] [place] [address]- Care Team Providers Care Bakeshop Cleaner Name Role Phone Not on Staff, PCP Primary Care Physician Unavail able Encounter [facility] [place] Date(s): 06/23/20 - 07/23/20 [facility] [address] [facility], [address]th [address] [place] [id number] Allergies, Adverse Reactions, Alerts [...] tablet, 0 Refills, Maintenance, 07/12/20 12:08:00 EST, [facility] #[id number], Partial fill upon patient request if the [...] tablet, 3 Refills, Maintenance, 06/19/20 9:24:00 EST, [facility] #[id number], 170.1, cm, 03/20/20 10:21:00 EST, Height, 65.9, [...] 07/12/20 13:53:00 EST, Route to Pharmacy Electronically, [facility] #[id number],Partial fill upon patient request, 170.1, cm, 03/20... [...] Stop, 07/12/20 13:53:00 EST, [facility], [facility] #[id number]... Start Date: 07/12/20 Status: Ordered Problem List Condition Effective Dates Status Health Status Inform ant Acquired hypothyroidism(Confirmed) Active Bilateral ovarian cysts(Confirmed) Active Dysmenorrhea(Confirmed) Active Endometriosis, severe(Confirmed) Active Female infertility(Confirmed) Active Social History Social History Type Response Smoking Status Never smoker entered on: 01/19/18 Sex
--- OUTSIDE RECORDS SUMMARY | 2023-04-20 15:18 | XMS_ITS | Continuity of Care Document ---
Author Name Unknown Organization [facility] ter Address [address] [place] [address]- Care Team Providers Care Shovel Operator Name Role Phone Not on Staff, PCP Primary Care Physician Unavail able Encounter [facility] [place] Date(s): 11/02/19 - 11/02/[address] [address]- [facility] Discharge Disposition: A-D/C Home Attending Physician: Cristal Garrido MD Admitting Physician: Cristal Garrido MD Referring Physician: Cristal Garrido MD Allergies, Adverse Reactions, Alerts Substance Reaction Severity Status NKA Active Medications levothyroxine 0.112 mg oral tablet 1 tablet = 112 mcg, By Mouth, Daily, # 30 tablet, 6 Refills, Maintenance, 10/02/19 10:59:00 EDT, Tablet, [facility], 170.18, cm, 09/19/19 12:02:00 EDT, Height Start Date: 10/02/19 Status: Ordered Zofran 8 mg oral tablet 1 tablet = 8 mg, By Mouth, Every 8 hours, PRN Nausea & Vomiting, # 10 tablet, 0 Refills, Maintenance, 11/02/19 18:21:00 EDT, Tablet, [facility] #[id number], 170.1, cm, 11/02/19 12:04:00 EDT,Height, 65.9, kg, 10/29/19 13:03:00 EDT, Dry Weight Start Date: 11/02/19 Stop Date: 11/05/19 Status: Ordered Problem List Condition Effective Dates Status Health Status Inform ant Acquired hypothyroidism(Confirmed) Active Bilateral ovarian cysts(Confirmed) Active Dysmenorrhea(Confirmed) Active Endometriosis, severe(Confirmed) Active Female infertility(Confirmed) Active Vital Signs Most recent to oldest [Reference Range]: 1 2 3 Height 170.1 cm (11/02/19 12:04 PM) 170.1 cm (10/29/19 1:03 PM) Weight 66.8 kg (11/02/19 12:04 PM) 65.9 kg (10/29/19 1:03 PM) Oxygen Saturation [94-100 %] 100 % (11/02/19 4:45 PM) 100 % (11/02/19 4:30 PM) 100 % (11/02/19 4:15 PM) Pulse Rate [55-90 bpm] 54 bpm *L* (11/02/19 12:04 PM) Body Mass Index [18.5-24.99] 23.09 (11/02/19 12:04 PM) 22.78 (10/29/19 1:03 PM) Blood Pressure [90-138/55-84 mm Hg] 117/73mm Hg (11/02/19 4:30 PM) 121/83mm Hg (11/02/19 4:15 PM) 123/78mm Hg (11/02/19 4:00 PM) Respiratory Rate [16-30 br/min] 11 br/min *L* (11/02/19 4:55 PM) 14 br/min *L* (11/02/19 4:45 PM) 9 br/min *L* (11/02/19 4:30 PM) Temperature [96.8-100.4 DegF] 97.5 DegF (11/02/19 4:45 PM) 96.7 DegF *L* (11/02/19 4:00 PM) 97.8 DegF (11/02/19 12:04 PM) Mode of Delivery (Oxygen) Room air (11/02/19 4:45 PM) Room air (11/02/19 4:30 PM) Simple face mask (11/02/19 4:15 PM) Blood pressure sites Arm, right (11/02/19 12:04 PM) Temperature Route Temporal (11/02/19 4:45 PM) Temporal (11/02/19 4:00 PM) Temporal (11/02/19 12:04 PM) Dry Weight 65.9 kg (10/29/19 1:03 PM) Weight Obtained Via Patient/family state d (10/29/19 1:03 PM) Dry Weight Obtained Via Patient/family s tated (10/29/19 1:03 PM) Social History Social History Type Response Smoking Status Never smoker entered on: 01/19/18 Sex
--- OUTSIDE RECORDS SUMMARY | 2023-04-20 15:18 | XMS_ITS | Continuity of Care Document ---
Author Name Unknown Organization [facility] Address [address] [place] [address]- Care Team Providers Care Rock Loader Name Role Phone Radhika HERNANDEZ, Cristal Primary Care Physician Encounter [facility] [place] Date(s): 03/30/21 - 04/29/21 [facility] [address] [place] [id number] Allergies, Adverse Reactions, Alerts Substance Reaction Severity Status Dust Active Immunizations Given and Recorded Vaccine Date Status Refusal Reason SARS-CoV-2 (COVID-19) Ad26 vaccine 01/16/21 Given Medications levothyroxine 0.137 mg oral tablet 1 tablet, By Mouth, Daily, # 90 tablet, 3 Refills, Maintenance, 06/19/20 9:24:00 EST, [facility] #[id number], 170.1, cm, 03/20/20 10:21:00 EST, Height, 65.9, [...]
--- OUTSIDE RECORDS SUMMARY | 2023-04-20 15:18 | XMS_ITS | Continuity of Care Document ---
Author Name Unknown Organization [facility] Address [address] [facility], 4t [address] [place] [address]- Care Team Providers Care Brazing Machine Feeder Name Role Phone Not on Staff, PCP Primary Care Physician Unavail able Encounter [facility] [place] Date(s): 09/19/19 - 09/26/[address] [facility] [address] [facility] [facility], 4th [address] [place] [address]- [facility] Attending Physician: Cristal Garrido MD Allergies, Adverse Reactions, Alerts Substance Reaction Severity Status NKA Active Medications Iron Supplement w/Folic Acid Iron Supplement w/Folic Acid, Refills 0, Maintenance, takes sometimes, 03/21/18 12:11:31 EST, Compound Start Date: 03/21/18 Status: Ordered Lessina 100 mcg-20 mcg oral tablet 1 tablet, By Mouth, Daily, # 30 tablet, 3 Refills, Maintenance, 09/05/19 10:25:00 EDT, [facility], 1 tablet By Mouth [...] 5 Refills, Maintenance, 07/26/19 15:35:00 EDT, Tablet, [facility], dx: Hypothyroidism E, 170.18, [...] Acquired hypothyroidism(Confirmed) Active Bilateral ovarian cysts(Confirmed) Active Vital Signs Most recent to oldest [Reference Range]: 1 Height 170.18 cm (09/19/19 11:51 AM) Weight 68.5 kg (09/19/19 11:51 AM) Body Mass Index [18.5-24.99] 23.65 (09/19/19 11:51 AM) Blood Pressure [90-138/55-84 mm Hg] 116/ 71mm Hg (09/19/19 11:51 AM) Blood pressure sites Arm, left (09/19/19 11:51 AM) Weight Obtained Via Standing scale (09/19/19 11:51 AM) Social History Social History Type Response Smoking Status Never smoker entered on: 01/19/18 Sex
--- OUTSIDE RECORDS SUMMARY | 2023-04-20 15:18 | XMS_ITS | Continuity of Care Document ---
Author Name Unknown Organization [facility] e Medicine Address [address] [facility], 4t [address] [place] [address]- Care Team Providers Care Toxicologist Name Role Phone Not on Staff, PCP Primary Care Physician Unavail able Encounter [facility] [place] Date(s): 07/03/20 - 07/10/20 [facility] [address] [facility], 4th [address] [place] [id number] Attending Physician: Cristal Garrido MD Referring Physician: Cristal Garrido MD Allergies, Adverse Reactions, Alerts Substance Reaction Severity Status Dust Active Medications 0.5cc insulin syringes 0.5cc insulin syringes, See Instructions, # 10 each, Refills 5, Tot. Refills 5, Maintenance, use with lupron; pt already has this medication, 07/04/20 11:27:00 EST, Compound, 170.1, cm, 03/20/20 10:21:00 EST, Height, 65.9, kg, 10/29/19 13:03:00 EDT, D... Start Date: 07/04/20 Status: Ordered doxycycline hyclate 100 mg oral tablet 1 tablet = 100 mg, By Mouth, 2 times a day, # 28 tablet, 5 Refills, Maintenance, 05/13/20 14:10:00 EST, [facility], Partial fill upon patient request if the prescription is for a scheduleII opioid drug., 170.1, cm, 03/20/20 10:21:00 EST,... Start Date: 05/13/20 Status: Ordered estradiol 0.1 mg/24 hours twice weekly transdermal film, extended release See Instructions, apply 2 patches the day after retrieval and change QOD, # 32 each, 5 Refills, Maintenance, 05/13/20 14:10:00 EST, [facility], Partial fill upon patient request if the prescription is for a schedule II opioid drug., 170.1,... Start Date: 05/13/20 Status: Ordered Gonal-F 1050 units subcutaneous injection = 300 International_Units, Subcutaneous Infusion, Daily, # 3 kit, 5 Refills, Maintenance, 05/13/20 14:10:00 EST, [facility], Partial fill upon patient request if the prescription is for aschedule II opioid drug., 300 International_Units S... Start Date: 05/13/20 Status: Ordered leuprolide 5 mg/mL subcutaneous solution See Instructions, 10 units sc QD, needs for 05/26, # 1 kit, 5 Refills, Maintenance, 05/13/20 14:13:00 EST, [facility], Partial fill upon patient request if the prescription is for a schedule II opioid drug., 170.1, cm, 03/20/20 10:21:00 EST... Start Date: 05/13/20 Status: Ordered levothyroxine 0.137 mg oral tablet 1 tablet, By Mouth, Daily, # 90 tablet, 3 Refills, Maintenance, 06/19/20 9:24:00 EST, [facility] #[id number], 170.1, cm, 03/20/20 10:21:00 EST, Height, 65.9, kg, 10/29/19 13:03:00 EDT, Dry Weight Start Date: 06/19/20 Status: Ordered Menopur 75 intl units subcutaneous injection = 150 International_Units, Subcutaneous Infusion, Daily, # 25 each, 5 Refills, Maintenance, 05/13/20 14:10:00 EST, [facility], Partial fill upon patient request if the prescription is fora schedule II opioid drug., 170.1, cm, 03/20/20 10:... Start Date: 05/13/20 Status: Ordered Ovidrel 250 mcg/0.5 mL subcutaneous solution = 250 mcg, Subcutaneous Injection, Once, # 1 each, 5 Refills, Soft Stop, 05/13/20 14:10:00 EST, Solution, [facility], Partial fill upon patient request [...] capsule, 5 Refills, Maintenance, 05/13/20 14:10:00 EST, [facility], Partial fill upon patient request [...]
--- OUTSIDE RECORDS SUMMARY | 2023-04-20 15:18 | XMS_ITS | Continuity of Care Document ---
Author Name Unknown Organization [facility] e [facility] Address [address] [facility], 4t [address] [place] [address]- Care Team Providers Care Veneer Sawyer Name Role Phone Not on Staff, PCP Primary Care Physician Unavail able Encounter [facility] [place] Date(s): 08/04/20 - 08/11/20 [facility] [address], [address] [place] [address]- Attending Physician: Zeke HERNANDEZ, Kamala Referring Physician: Eneida Villanueva MD Allergies, Adverse [...] tablet, 0 Refills, Maintenance, 07/12/20 12:08:00 EST, [facility][id number], Partial fill upon patient request if the [...] tablet, 3 Refills, Maintenance, 06/19/20 9:24:00 EST, [facility] #[id number], 170.1, cm, 03/20/20 10:21:00 EST, Height, 65.9, [...] 07/12/20 13:53:00 EST, Route to Pharmacy Electronically, [facility][id number],Partial fill upon patient request, 170.1, cm, 03/20... [...] Stop, 07/12/20 13:53:00 EST, [facility], [facility]... Start Date: 07/12/20 Status: Ordered Problem List Condition Effective Dates Status Health Status Inform ant Acquired hypothyroidism(Confirmed) Active Bilateral ovarian cysts(Confirmed) Active Dysmenorrhea(Confirmed) Active Endometriosis, severe(Confirmed) Active Female infertility(Confirmed) Active Vital Signs Most recent to oldest [Reference Range]: 1 Height 170.1 cm (08/04/20 7:44 AM) Weight 67.1 kg (08/04/20 7:44 AM) Body Mass Index [18.5-24.99] 23.19 (08/04/20 7:44 AM) Blood Pressure [90-138/55-84 mm Hg] 128/ 76mm Hg (08/04/20 7:44 AM) Blood pressure sites Arm, left (08/04/20 7:44 AM) Social History Social History Type Response Smoking Status Never smoker entered on: 01/19/18 Sex
--- OUTSIDE RECORDS SUMMARY | 2023-04-20 15:18 | XMS_ITS | Continuity of Care Document ---
Author Name Unknown Organization [facility] Address [address] [place] [address]- Care Team Providers Care Slunk Skinner Name Role Phone Not on Staff, PCP Primary Care Physician Unavail able Encounter [facility] [place] Date(s): 10/06/19 - 11/05/19 [facility] [address] [place] [address]- [facility] Attending Physician: Loulou Rob Admitting Physician: Loulou Rob Referring Physician: AdmtrLoulou Allergies, Adverse Reactions, Alerts Substance Reaction Severity Status NKA Active Medications levothyroxine 0.112 mg oral tablet 1 tablet = 112 mcg, By Mouth, Daily, # 30 tablet, 6 Refills, Maintenance, 10/02/19 10:59:00 EDT, Tablet, [facility], 170.18, cm, 09/19/19 12:02:00 EDT, Height Start Date: 10/02/19 Status: Ordered Zofran 8 mg oral tablet 1 tablet = 8 mg, By Mouth, Every 8 hours, PRN Nausea & Vomiting, # 10 tablet, 0 Refills, Maintenance, 11/02/19 18:21:00 EDT, Tablet, [facility][id number], 170.1, cm, 11/02/19 12:04:00 EDT,Height, 65.9, kg, [...]
--- OUTSIDE RECORDS SUMMARY | 2023-04-20 15:19 | XMS_ITS | Continuity of Care Document ---
Author Name Unknown Organization [facility] Address [address] [place] [address], [address] [place] [address]- Care Team Providers Care Thread Spooler Name Role Phone Cristal Garrido MD Primary Care Physician [place] [facility] [place]/05/20 - 09/04/20 [facility] [address] [facility], [address] [place] [address]- Allergies, Adverse Reactions, Alerts Substance Reaction Severity [...] 90 tablet, 3 Refills, Maintenance, 06/19/20 9:24:00 [id number], 170.1, cm, 03/20/20 10:21:00 EST, Height, 65.9, [...] mL, 5 Refills, Maintenance, 08/18/20 17:36:00 EDT, [facility], Partial fill upon patient request if the prescription is for a schedule II opioid drug., 170.1, cm, 08/04/20 7:44:0... Start Date: 08/18/20 Status: Ordered Prometrium 200 mg oral capsule See Instructions, Insert 1 vaginally TID, # 90 capsule, 5 Refills, Maintenance, 05/13/20 14:10:00 EST, [facility], Partial fill upon patient [...]
--- OUTSIDE RECORDS SUMMARY | 2023-04-20 15:19 | XMS_ITS | Continuity of Care Document ---
Author Name Unknown Organization [facility] Address [address] [place] [address]- Care Team Providers Care Rand Sewer Name Role Phone Radhika HERNANDEZ, Cristal Primary Care Physician [phone] Encounter [facility] [place] Date(s): 12/31/20 - 01/30/21 [facility] [address] [place] [id number] Allergies, Adverse Reactions, Alerts Substance Reaction Severity Status Dust Active Immunizations Given and Recorded Vaccine Date Status Refusal Reason SARS-CoV-2 (COVID-19) Ad26 vaccine 01/16/21 Given Medications Colace sodium 100 mg oral capsule 100 mg, 1, capsule, By Mouth, 2 times a day, # 60 capsule, Refills 0, Tot. Refills 0, Maintenance, 01/16/21 5:11:00 EDT, Route to Pharmacy Electronically, [facility], Partial fill upon patient request if the prescription is for a schedul... Start Date: 01/16/21 Status: Ordered enoxaparin 120 mg/0.8 mL injectable solution 0.7 mL = 105 mg, Subcutaneous Injection, Every 24 hours, for 21 days, # 14.7 mL, 0 Refills, Acute 02/06/21 5:11:00 EDT, 01/16/21 5:11:00 EDT, Injection, [facility], Partial fill upon patient request if the prescription is for a schedule... Start Date: 01/16/21 Stop Date: 02/06/21 Status: Ordered levothyroxine 0.137 mg oral tablet 1 tablet, By Mouth, Daily, # 90 tablet, 3 Refills, Maintenance, 06/19/20 9:24:00 EST, [facility][id number], 170.1, cm, 03/20/20 10:21:00 EST, Height, 65.9, kg, 10/29/19 13:03:00 EDT, Dry Weight Start Date: 06/19/20 Status: Ordered oxyCODONE 5 mg oral tablet 5 mg, 1, tablet, By Mouth, Every 6 hours, PRN, # 12 tablet, Refills 0, Tot. Refills 0, Maintenance,as needed for pain, 01/16/21 5:12:00 EDT, Route to Pharmacy Electronically, [facility], Partial fill upon patient request, 170, [...] Gas, 215:11:00 EDT, Route to Pharmacy Electronically, [facility], Partial fill upon patient request if the prescription is for a schedule II opi... Start Date: 01/16/21 Status: Ordered Tylenol 325 mg oral tablet 975 mg, 3, tablet, By Mouth, Every 6 hours, PRN, # 12 tablet, Refills 0, Tot. Refills 0, Maintenance, Pain , Moderate, 01/16/21 5:11:00 EDT, Route to Pharmacy Electronically, [facility], Partial fill upon patient request if the prescript... Start Date: 01/16/21 Status: Ordered Problem List Condition Effective Dates Status Health Status Inform ant Acquired hypothyroidism(Confirmed) Active Bilateral ovarian cysts(Confirmed) Active Dysmenorrhea(Confirmed) Active Endometriosis, severe(Confirmed) Active Female infertility(Confirmed) Active Social History Social History Type Response Smoking Status Never smoker entered on: 01/19/18 Sex
--- OUTSIDE RECORDS SUMMARY | 2023-04-20 15:19 | XMS_ITS | Continuity of Care Document ---
Author Name Unknown Organization [facility] e [facility] Address [address] [facility], 4t [address] [place] [address]- Care Team Providers Care Electric Deicer Assembler Name Role Phone Not on Staff, PCP Primary Care Physician Unavail able En[place] [facility] [place] Date(s): 05/14/20 - 06/13/20 [facility] [address], 4th [address] [place] [id number] Allergies, Adverse Reactions, Alerts Substance Reaction Severity Status Dust Active Medications doxycycline hyclate 100 mg oral tablet 1 tablet = 100 mg, By Mouth, 2 times a day, # 28 tablet, 5 Refills, Maintenance, 05/13/20 14:10:00 EST, [facility], Partial fill upon patient request if the prescription is for a scheduleII opioid drug., 170.1, cm, 03/20/20 10:21:00 EST,... Start Date: 05/13/20 Status: Ordered estradiol 0.1 mg/24 hours twice weekly transdermal film, extended release See Instructions, apply 2 patches the day after retrieval and change QOD, # 32 each, 5 Refills, Maintenance, 05/13/20 14:10:00 EST, [facility], Partial fill upon patient request if the prescription is for a schedule II opioid drug., 170.1,... Start Date: 05/13/20 Status: Ordered Gonal-F 1050 units subcutaneous injection = 300 International_Units, Subcutaneous Infusion, Daily, # 3 kit, 5 Refills, Maintenance, 05/13/20 14:10:00 EST, [facility], Partial fill upon patient request if the prescription is for aschedule II opioid drug., 300 International_Units S... Start Date: 05/13/20 Status: Ordered leuprolide 5 mg/mL subcutaneous solution See Instructions, 10 units sc QD, needs for 05/26, # 1 kit, 5 Refills, Maintenance, 05/13/20 14:13:00 EST, [facility], Partial fill upon patient request if the prescription is for a schedule II opioid drug., 170.1, cm, 03/20/20 10:21:00 EST... Start Date: 05/13/20 Status: Ordered levothyroxine 137 mcg (0.137 mg) oral capsule 1 capsule = 137 mcg, By Mouth, Daily, # 30 capsule, 2 Refills, Maintenance, 03/25/20 16:29:00 EST, Capsule, [facility][id number], Partial fill upon patient request, 170.1, cm, 03/20/20 10:21:00 EST, Height, 65.9, kg, 10/29/19 13:03:00 EDT, Dry... Start Date: 03/25/20 Status: Ordered Menopur 75 intl units subcutaneous injection = 150 International_Units, Subcutaneous Infusion, Daily, # 25 each, 5 Refills, Maintenance, 05/13/20 14:10:00 EST, [facility], Partial fill upon patient request if the prescription is fora schedule II opioid drug., 170.1, cm, 03/20/20 10:... Start Date: 05/13/20 Status: Ordered Ovidrel 250 mcg/0.5 mL subcutaneous solution = 250 mcg, Subcutaneous Injection, Once, # 1 each, 5 Refills, Soft Stop, 05/13/20 14:10:00 EST, Solution, [facility], Partial fill upon patient [...] capsule, 5 Refills, Maintenance, 05/13/20 14:10:00 EST, [facility], Partial fill upon patient request [...]
--- OUTSIDE RECORDS SUMMARY | 2023-04-20 15:19 | XMS_ITS | Continuity of Care Document ---
Author Name Unknown Organization [facility] Payam [facility] Address [address] [place] [address], [address] [address]- Care Team Providers Care Precipitation Equipment Tender Name Role Phone Not on Staff, PCP Primary Care Physician Unavail able [place] [facility] [place] [facility] [place] [facility] [address] [facility], [address] [place] [address]- Allergies, Adverse Reactions, Alerts Substance Reaction Severity [...] tablet, 3 Refills, Maintenance, 06/19/20 9:24:00 EST, [facility][id number], 170.1, cm, 03/20/20 10:21:00 EST, Height, 65.9, [...]
--- OUTSIDE RECORDS SUMMARY | 2023-04-20 15:19 | XMS_ITS | Continuity of Care Document ---
Author Name Unknown Organization [facility] e [facility] Address [address] [facility], 4t [address] [place] [address]- Care Team Providers Care Shirt Hemmer Name Role Phone Not on Staff, PCP Primary Care Physician Unavail able Encounter [facility] Date(s): 11/08/19 - 12/08/19 [facility] [address] [facility], 4th [address] [place] [address]- [facility] Allergies, Adverse Reactions, Alerts Substance Reaction Severity Status NKA Active Medications levothyroxine 0.112 mg oral tablet 1 tablet = 112 mcg, By Mouth, Daily, # 30 tablet, 6 Refills, Maintenance, 10/02/19 10:59:00 EDT, Tablet, [facility], 170.18, cm, 09/19/19 12:02:00 EDT, Height Start Date: 10/02/19 Status: Ordered Problem List Condition Effective Dates Status Health Status Inform ant Acquired hypothyroidism(Confirmed) Active Bilateral ovarian cysts(Confirmed) Active Dysmenorrhea(Confirmed) Active Endometriosis, severe(Confirmed) Active Female infertility(Confirmed) Active Social History Social History Type Response Smoking Status Never smoker entered on: 01/19/18 Sex
--- OUTSIDE RECORDS SUMMARY | 2023-04-20 15:19 | XMS_ITS | Continuity of Care Document ---
Author Name Unknown Organization [facility] Address [address] [facility], 4t [address] [place] [address]- Care Team Providers Care Airfield Services Officer Name Role Phone Radhika HERNANDEZ, Cristal Primary Care Physician [phone] Encounter [facility] [place] Date(s): 08/08/20 - 09/07/20 [facility] [address], 4th [address] [place] [address]- Allergies, Adverse Reactions, Alerts Substance Reaction Severity [...] 90 tablet, 3 Refills, Maintenance, 06/19/20 9:24:00 [id number], 170.1, cm, 03/20/20 10:21:00 EST, Height, 65.9, [...] mL, 5 Refills, Maintenance, 08/18/20 17:36:00 EDT, [facility], Partial fill upon patient request if the prescription is for a schedule II opioid drug., 170.1, cm, 08/04/20 7:44:0... Start Date: 08/18/20 Status: Ordered Prometrium 200 mg oral capsule See Instructions, Insert 1 vaginally TID, # 90 capsule, 5 Refills, Maintenance, 05/13/20 14:10:00 EST, [facility], Partial fill upon [...]
--- OUTSIDE RECORDS SUMMARY | 2023-04-20 15:19 | XMS_ITS | Continuity of Care Document ---
Author Name Unknown Organization [facility] e Medicine Address [address], 4t [address] [place] [address]- Care Team Providers Care Plsql Developer Name Role Phone Not on Staff, PCP Primary Care Physician Unavail able Encounter [facility] [place] Date(s): 08/07/20 - 08/14/20 [facility] Reproductive Medicine [address], 4th [address] [place] [address]- Attending Physician: Cristal Garrido MD Referring Physician: [...] tablet, 0 Refills, Maintenance, 07/12/20 12:08:00 EST, [facility] #[id number], Partial fill upon patient request if the [...] tablet, 3 Refills, Maintenance, 06/19/20 9:24:00 EST, [facility] #[id number], 170.1, cm, 03/20/20 10:21:00 EST, Height, 65.9, [...] 07/12/20 13:53:00 EST, Route to Pharmacy Electronically, [facility] #[id number],Partial fill upon patient request, 170.1, cm, 03/20... [...] Stop, 07/12/20 13:53:00 EST, [facility], [facility] #[facility]... Start Date: 07/12/20 Status: Ordered Problem List Condition Effective Dates Status Health Status Inform ant Acquired hypothyroidism(Confirmed) Active Bilateral ovarian cysts(Confirmed) Active Dysmenorrhea(Confirmed) Active Endometriosis, severe(Confirmed) Active Female infertility(Confirmed) Active Social History Social History Type Response Smoking Status Never smoker entered on: 01/19/18 Sex
--- OUTSIDE RECORDS SUMMARY | 2023-04-20 15:19 | XMS_ITS | Continuity of Care Document ---
Author Name Unknown Organization [facility] ter Address [address] [place] [address]- Care Team Providers Care Clinical Research Associate Name Role Phone Not on Staff, PCP Primary Care Physician Unavail able [place] [facility] [place] Date(s): 06/25/20 - 07/31/[address] [id number] Attending Physician: Cristal Garrido MD [...] tablet, 0 Refills, Maintenance, 07/12/20 12:08:00 EST, [facility] #[id number], Partial fill upon patient request if the [...] tablet, 3 Refills, Maintenance, 06/19/20 9:24:00 EST, [facility] #[id number], 170.1, cm, 03/20/20 10:21:00 EST, Height, 65.9, [...] 07/12/20 13:53:00 EST, Route to Pharmacy Electronically, [facility] #[id number],Partial fill upon patient request, 170.1, cm, 03/20... [...] Stop, 07/12/20 13:53:00 EST, [facility], [facility] #[facility]... Start Date: 07/12/20 Status: Ordered Problem List Condition Effective Dates Status Health Status Inform ant Acquired hypothyroidism(Confirmed) Active Bilateral ovarian cysts(Confirmed) Active Dysmenorrhea(Confirmed) Active Endometriosis, severe(Confirmed) Active Female infertility(Confirmed) Active Social History Social History Type Response Smoking Status Never smoker entered on: 01/19/18 Sex
--- OUTSIDE RECORDS SUMMARY | 2023-04-20 15:19 | XMS_ITS | Continuity of Care Document ---
Author Name Unknown Organization [facility] C ancer Care Address [address] [place] [address]- Care Team Providers Care Acute Care Nurse Name Role Phone Radhika HERNANDEZ, Cristal Primary Care Physician Encounter [facility] [place] Date(s): 03/30/21 - 04/29/21 [facility] [address] [place] [id number] Allergies, Adverse Reactions, Alerts Substance Reaction Severity Status Dust Active Immunizations Given and Recorded Vaccine Date Status Refusal Reason SARS-CoV-2 (COVID-19) Ad26 vaccine 01/16/21 Given Medications levothyroxine 0.137 mg oral tablet 1 tablet, By Mouth, Daily, # 90 tablet, 3 Refills, Maintenance, 06/19/20 9:24:00 EST, [facility] #[id number], 170.1, cm, 03/20/20 10:21:00 EST, Height, 65.9, [...]
--- OUTSIDE RECORDS SUMMARY | 2023-04-20 15:19 | XMS_ITS | Continuity of Care Document ---
Author Name Unknown Organization [facility] e Medicine Address [address], 4t [address] [place] [address]- Care Team Providers Care Gift Manager Name Role Phone Not on Staff, PCP Primary Care Physician Unavail able [place] [facility] [place]/19 - 12/20/19 [facility] Reproductive Medicine [address], 4th [address] [place] [address]- [facility] Attending Physician: Loulou Rob Admitting Physician: AdmLoulou [...]
--- OUTSIDE RECORDS SUMMARY | 2023-04-20 15:19 | XMS_ITS | Continuity of Care Document ---
Author Name Unknown Organization [facility] e Medicine Address [address] [place] [address], 4t [address] [place] [address]- Care Team Providers Care Floral Merchandiser Name Role Phone Not on Staff, PCP Primary Care Physician Unavail able Encounter [facility] [place] Date(s): 12/21/19 - 01/20/20 [facility] Reproductive Medicine [address], 4th [address] [place] [address] [facility] Allergies, Adverse Reactions, Alerts Substance Reaction [...] 1 Refills, Maintenance, 01/10/20 14:41:00 EDT, Capsule, [facility] #[id number], Please cancel 112mcg script, her dose has [...]
--- OUTSIDE RECORDS SUMMARY | 2023-04-20 15:19 | XMS_ITS | Continuity of Care Document ---
Author Name Unknown Organization [facility] e Medicine Address [address], 4t [address] [place] [address]- Care Team Providers Care Clay Shop Supervisor Name Role Phone Not on Staff, PCP Primary Care Physician Unavail able Encounter [facility] Date(s): 07/11/19 - 07/18/19 [facility] Reproductive Medicine [address], 4th [address] [place] [address] [facility] Attending Physician: Cristal Garrido MD Allergies, [...] 8:49:00 EST Start Date: 07/11/19 Status: Ordered Vital Signs Most recent to oldest [Reference Range]: 1 Height 170.18 cm (07/11/19 8:14 AM) Weight 67 kg (07/11/19 8:14 AM) Pulse Rate [55-90 bpm] 80 bpm (07/11/19 8:14 AM) Body Mass Index [18.5-24.99] 23.13 (07/11/19 8:14 AM) Blood Pressure [90-138/55-84 mm Hg] 130/ 74mm Hg (07/11/19 8:14 AM) Blood pressure sites Arm, right (07/11/19 8:14 AM) Weight Obtained Via Standing scale (07/11/19 8:14 AM) Social History Social History Type Response Smoking Status Never smoker entered on: 01/19/18 Sex
--- OUTSIDE RECORDS SUMMARY | 2023-04-20 15:19 | XMS_ITS | Continuity of Care Document ---
Author Name Unknown Organization [facility] Payam Rapp n[facility]micias [facility] Address [address], [address] [place] [address]- Care Team Providers Care Nsh Teacher Name Role Phone Cristal Garrido MD Primary Care Physician [phone] Encounter [facility] [place](s): 08/18/20 - 09/17/20 [facility] ColinOmic[facility] [address], [address] [place], [place] [address] Allergies, Adverse Reactions, Alerts [...] tablet, 3 Refills, Maintenance, 06/19/20 9:24:00 EST, [facility] #[id number], 170.1, cm, 03/20/20 10:21:00 EST, Height, 65.9, [...] mL, 5 Refills, Maintenance, 08/18/20 17:36:00 EDT, [facility], Partial fill upon patient request if the prescription is for a schedule II opioid drug., 170.1, cm, 08/04/20 7:44:0... Start Date: 08/18/20 Status: Ordered Prometrium 200 mg oral capsule See Instructions, Insert 1 vaginally TID, # 90 capsule, 5 Refills, Maintenance, 05/13/20 14:10:00 EST, [facility], Partial fill upon patient [...]
--- OUTSIDE RECORDS SUMMARY | 2023-04-20 15:19 | XMS_ITS | Continuity of Care Document ---
Author Name Unknown Organization [facility] Payam de [employer] [facility] Address [address] [place] [address], [address] [place] [address]- Care Team Providers Care Carcass Washer Name Role Phone Not on Staff, PCP Primary Care Physician Unavail able [place] [facility] [place] 08[place]20 [facility] [employer] [address] [facility], [address] [place] [address]- Allergies, Adverse Reactions, Alerts Substance Reaction Severity [...] tablet, 0 Refills, Maintenance, 07/12/20 12:08:00 EST, [facility] #[id number], Partial fill upon patient request if the prescription is for a schedule II opioid drug., 1... Start Date: 07/12/20 Stop Date: 07/19/20 Status: Ordered doxycycline hyclate 100 mg oral tablet 1 tablet = 100 mg, By Mouth, 2 times a day, # 28 tablet, 5 Refills, Maintenance, 05/13/20 14:10:00 EST, [facility], Partial fill upon patient request if the prescription is for a scheduleII opioid drug., 170.1, cm, 03/20/20 10:21:00 EST,... Start Date: 05/13/20 Status: Ordered estradiol 0.1 mg/24 hours twice weekly transdermal film, extended release See Instructions, apply 2 patches the day after retrieval and change QOD, # 32 each, 5 Refills, Maintenance, 05/13/20 14:10:00 EST, [facility], Partial fill upon patient request if the prescription is for a schedule II opioid drug., 170.1,... Start Date: 05/13/20 Status: Ordered Gonal-F 1050 units subcutaneous injection = 300 International_Units, Subcutaneous Infusion, Daily, # 3 kit, 5 Refills, Maintenance, 05/13/20 14:10:00 EST, [facility], Partial fill upon patient request if the prescription is for aschedule II opioid drug., 300 International_Units S... Start Date: 05/13/20 Status: Ordered leuprolide 5 mg/mL subcutaneous solution See Instructions, 10 units sc QD, needs for 05/26, # 1 kit, 5 Refills, Maintenance, 05/13/20 14:13:00 EST, [facility], Partial fill upon patient request if the prescription is for a schedule II opioid drug., 170.1, cm, 03/20/20 10:21:00 EST... Start Date: 05/13/20 Status: Ordered levothyroxine 0.137 mg oral tablet 1 tablet, By Mouth, Daily, # 90 tablet, 3 Refills, Maintenance, 06/19/20 9:24:00 EST, [facility] #[id number], 170.1, cm, 03/20/20 10:21:00 EST, Height, 65.9, kg, 10/29/19 13:03:00 EDT, Dry Weight Start Date: 06/19/20 Status: Ordered Menopur 75 intl units subcutaneous injection = 150 International_Units, Subcutaneous Infusion, Daily, # 25 each, 5 Refills, Maintenance, 05/13/20 14:10:00 EST, [facility], Partial fill upon patient request if the prescription is fora schedule II opioid drug., 170.1, cm, 03/20/20 10:... Start Date: 05/13/20 Status: Ordered Ovidrel 250 mcg/0.5 mL subcutaneous solution = 250 mcg, Subcutaneous Injection, Once, # 1 each, 5 Refills, Soft Stop, 05/13/20 14:10:00 EST, Solution, [facility], Partial fill upon patient request if the prescription is for a schedule II opioid drug., 170.1, cm, 03/20/20 10:21:00 EST... Start Date: 05/13/20 Status: Ordered oxyCODONE 5 mg oral tablet 5 mg, 1, tablet, By Mouth, Every 6 hours, PRN, # 8 tablet, Refills 0, Tot. Refills 0, Maintenance, Pain , Severe, 07/12/20 13:53:00 EST, Route to Pharmacy Electronically, [facility] #[id number],Partial fill upon patient request, 170.1, cm, 03/20... Start Date: 07/12/20 Status: Ordered Multivitamins See Instructions, Takes By Mouth Every other day, 0 Refills, Maintenance, 03/20/20 10:22:00 EST, Partial fill upon patient request Start Date: 03/20/20 Status: Ordered Prometrium 200 mg oral capsule See Instructions, Insert 1 vaginally TID, # 90 capsule, 5 Refills, Maintenance, 05/13/20 14:10:00 EST, [facility], Partial fill upon patient [...] Stop, 07/12/20 13:53:00 EST, [facility], [facility] #[facility]... Start Date: 07/12/20 Status: Ordered Problem List Condition Effective Dates Status Health Status Inform ant Acquired hypothyroidism(Confirmed) Active Bilateral ovarian cysts(Confirmed) Active Dysmenorrhea(Confirmed) Active Endometriosis, severe(Confirmed) Active Female infertility(Confirmed) Active Social History Social History Type Response Smoking Status Never smoker entered on: 01/19/18 Sex
--- OUTSIDE RECORDS SUMMARY | 2023-04-20 15:19 | XMS_ITS | Continuity of Care Document ---
Author Name Unknown Organization [facility] e Medicine Address [address], 4t [address] [place] [address]- Care Team Providers Care Loft Worker Pile Driving Name Role Phone Not on Staff, PCP Primary Care Physician Unavail able Encounter [facility] Date(s): 03/18/20 - 04/17/20 [facility] Reproductive Medicine [address], 4th [address] [place] [address] Allergies, Adverse Reactions, Alerts Substance Reaction Severity Status Dust Active Medications levothyroxine 137 mcg (0.137 mg) oral capsule 1 capsule = 137 mcg, By Mouth, Daily, # 30 capsule, 2 Refills, Maintenance, 03/25/20 16:29:00 EST, Capsule, [facility] #[id number], Partial fill upon patient request, 170.1, cm, [...]
--- NOTE | 2023-04-20 15:22 | AM.OFFWIN_ITS ---
Intake Vital Signs 04/20/23 15:27 Height 5 ft 6 in Weight 146 lb BMI 23.6 BP 118/60 Blood Pressure Location Lt brachial Position Sitting Pulse 91 Pulse Source Pulse Oximeter Temp 97.2 F Temp Source Temporal Artery Scan Pulse Oximetry (%) 98 Oxygen Delivery Method Room Air Intake Visit Reasons: EP pain lft abdomen Intake Note: pt is pain in lft abdomen started 1 week ago Patient Tobacco Use Status: Former Tobacco user Allergies No Known Allergies Allergy (Verified 04/22/23 19:11) Do you need a note to return to daycare/school/sports/work: No HPI HPI Comments History of Present Illness Details Pt is a 42yo F who presents with LLQ abdominal pain and concern clot She said she has hx of L femoral artery thrombus 2 years ago post She is no longer on anticoags She noticed x a few days similar LLQ dilated vessels and pain She said slight dizziness x a few episodes No current CP or SOB or palpitations She has not tried anything for symptoms No trauma or injury No pain level given in office [facility] Medical History COVID-19 History of endometriosis History of ovarian cyst Surgical History History of surgery on lower extremity History of removal of cyst History of delivery Family History Mother HTN (hypertension) Father Ear infection Social History Housing: House Alcohol intake: never Patient Tobacco Use Status: Former Tobacco user e-Cigarette/Vaping Use: Never Used Second Hand Smoke Exposure: No service: No Current occupational status: unemployed 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 Cognitive needs: No Hearing needs: No Vision needs: No Review of Systems Const Denies chills, Denies fever(s) and Denies frequent falls Card Denies edema, Denies irregular heart rhythm and Denies dyspnea Resp Denies dyspnea GI Reports abdominal pain, Denies bloating and Reports other (dilated LLQ vessels) Neuro Denies frequent falls Shelton/Lymph Reports as per HPI Physical Exam Vital Signs: Last Vital Signs Temp 97.2 F 04/20/23 15:27 Pulse 91 04/20/23 15:27 BP 118/60 04/20/23 15:27 Pulse Ox 98 04/20/23 15:27 Oxygen Delivery Method Room Air 04/20/23 15:27 BMI result Body Mass Index 23.6 General: Non-toxic, NAD. Speaking full sentences. Skin: Warm dry throughout HENT: Airway patent. Uvula midline. No pharyngeal erythema or edema. No RAFTSMAN. Bilateral canals clear. TM non-erythematous, non-bulging. No TM perforation or hemotympanum noted. Respiratory: No respiratory distress Cardiac: RRR. No calf tenderness to palpation Abdominal: BS present. No palpable mass. LLQ region has palpable dilated vessels throughout into hip and anterior pelvis. Non-tender to palpation. MSK: Full ROM extremities. No leg discrepancy noted bilaterally. Neurology: A/O. No aphasia or facial droop. Gait without abnormality Psych: Good mood and affect Assessment & Plan Assessment & Plan (1) Abdominal pain: Code(s): R10.9 - Unspecified abdominal pain Qualifiers: Abdominal location: left lower quadrant Qualified Code(s): R10.32 - Left lower quadrant pain Plan: see below (2) History of femoral artery thrombosis: Code(s): Z86.718 - Personal history of other venous thrombosis and embolism Plan: Pt seen and evaluated Due to hx and PE findings, can not rule out clot in office Discussed with pt this is life threatening and needs further imaging She is aware but would rather have outpatient imaging I called expect to [facility] and encouraged pt to go. She gave verbal understanding and is still unsure She may call PCP tomorrow but is aware of risk of possible All questions answered at time of d/c. Pt expressed verbal understanding Coding Level of Care Code Est Pt Level 3 (51675) Diagnoses Left lower quadrant abdominal pain R10.32 Abdominal location: left lower quadrant History of femoral artery thrombosis Z86.718
[2023-04-20 15:27] VITALS: BP 118/60; PULSE 91; TEMP 36.2; O2SAT 98; BMI 23.6
== END 2023-04-20 16:32 | disposition home or self-care (01) ==
PROVIDERS: PCP Nurse Practitioner Family; Visit Provider Physician Assistant
DX: R10.32 Left lower quadrant pain (principal); Z86.718 Personal history of other venous thrombosis and embolism
CPT/HCPCS: 99213

== ENCOUNTER 2023-04-22 18:42 | Emergency (ER) | payer OTHER, SELFPAY ==
[2023-04-22 19:06] VITALS: BP 115/37; PULSE 66; RESP 18; TEMP 36.6; O2SAT 98; BMI 23.2
--- NOTE | 2023-04-22 19:06 | ED_ITS ---
HPI - General Adult General Chief complaint: General Medical Stated complaint: Bloodclot Time Seen by Provider: 04/22/23 21:38 Related Data Previous Rx's Medication Instructions Recorded nirmatrelvir 300 mg (150 mg See Rx Instructions PO .COMPLEX 05/18/22 x2)-ritonavir 100 mg tablet,dose #30 ea pack (Paxlovid) levothyroxine 112 mcg tablet 112 mcg PO DAILY #90 tabs 11/16/22 cholecalciferol (vitamin D3) 25 25 mcg PO DAILY #90 tabs 02/09/23 mcg (1,000 unit) tablet Allergies Allergy/AdvReac Type Severity Reaction Status Date / Time No Known Allergies Allergy Verified 04/22/23 19:11 [facility] Past Medical History Medical History COVID-19 History of endometriosis History of ovarian cyst Surgical History History of surgery on lower extremity History of removal of cyst History of delivery Family History Family History Mother HTN (hypertension) Father Ear infection Social History Social History Housing: House Alcohol intake: never Patient Tobacco Use Status: Former Tobacco user e-Cigarette/Vaping Use: Never Used Second Hand Smoke Exposure: No service: No Current occupational status: unemployed 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 Patient is a 42 year old assigned female at presenting to the emergency department with a possible clot to the left upper leg. Patient states that she has a history of femoral artery thrombosis on the left side and is having pain and swelling on that side again. Patient is NOT presently on anti-coags. Labs ordered. Patient placed back in the waiting room pending room availability and results. Patient evaluated and dispositioned by Dr. Guerra. Please see his note from 04/22/2023. Medical Decision Making Lab Data 04/22/23 19:21 04/22/23 19:21 Labs: Lab Results 04/22/23 Range/Units 19:21 WBC 7.2 (4.8-10.8) X10*3/uL RBC 4.62 (4.20-5.50) X10*6/uL Hgb 11.8 L (12.0-16.0) g/dl Hct 36.8 L (37.0-47.0) % MCV 79.7 L (80.0-98.0) fL MCH 25.5 L (27.0-33.0) pg MCHC 32.1 (31.0-35.0) g/dl RDW 14.6 (11.0-16.0) % Plt Count 316 D (160-400) X10*3/uL MPV 10.1 (9.4-12.3) fL Immature Gran % (Auto) 0.3 (0.0-0.4) % Neut % (Auto) 60.7 (45-73) % Lymph % (Auto) 28.3 (20-40) % Stone % (Auto) 6.5 (2-11) % Eos % (Auto) 3.0 (0-4) % Baso % (Auto) 1.2 (0-2) % Lymph # (Auto) 2.1 (1.2-4.9) X10*3/uL Stone # (Auto) 0.5 (0.1-1.2) X10*3/uL Eos # (Auto) 0.2 (0.0-0.4) X10*3/uL Baso # (Auto) 0.1 (0.0-0.2) X10*3/uL Abs Immat Gran (auto) 0.02 (0.00-0.03) X10*3/uL Absolute Neuts (auto) 4.4 (2.0-8.3) x10*3/uL Absolute Nucleated RBC 0.000 (0.0-0.012) X10*3/uL Nucleated RBC % (auto) 0.0 (0.0-0.2) /100WBC PT 12.3 (11.1-13.3) SEC INR 1.0 (0.9-1.1) APTT 28.1 (26.0-36.4) SEC D-Dimer High Sensitivty 155 NG/ML Sodium 140 (135-145) mmol/L Potassium 3.8 (3.3-5.1) mmol/L Chloride 108 (96-108) mmol/L Carbon Dioxide 24 (22-29) mmol/L Anion Gap 12 (12-20) BUN 20 H (9-16) mg/dL Creatinine 0.76 (0.5-1.4) mg/dL Estim Creat Clear Calc 95.6 Estimated GFR > 60 Random Glucose 77 (60-115) mg/dL Calcium 8.6 D (8.4-10.2) mg/dL Total Bilirubin 0.5 (0.0-1.0) mg/dL AST 16 (5-31) U/L ALT 10 (0-31) U/L Alkaline Phosphatase 42 (39-117) U/L Total Protein 7.5 (6.5-8.0) g/dL Albumin 4.0 (3.5-5.0) g/dL Discharge Plan Discharge Clinical Impression: History of deep vein thrombosis (DVT) during Patient Disposition: Home, Self-Care Instructions: Leg Pain (ED) Prescriptions: No Action Paxlovid 300 mg (150 mg x 2)-100 mg tablets,dose pack See Rx Instructions PO .COMPLEX Qty: 30 0RF Rx Instructions: take TWO 150 mg tablets of nirmatrelvir with ONE 100 mg tablet of ritonavir twice daily for 5 days PO levothyroxine 112 mcg tablet 112 mcg PO DAILY Qty: 90 1RF cholecalciferol (vitamin D3) 25 mcg (1,000 unit) tablet 25 mcg PO DAILY Qty: 90 0RF Referrals: Carmela Stewart FNP [Primary Care Provider] - (Please get ultrasound done in the morning) Discharge Date/Time: 04/22/23 22:30
[2023-04-22 19:25] LABS: MANUAL DIFF FLAG NO
[2023-04-22 19:28] LABS: Basophils Absolute Auto 0.1 X10*3/uL (0.0-0.2); Basophils Percent Auto 1.2 % (0-2); Eosinophils Absolute Auto 0.2 X10*3/uL (0.0-0.4); Hematocrit 36.8 % (37.0-47.0); Hemoglobin 11.8 g/dl (12.0-16.0); Imm Gran Abs Auto 0.02 X10*3/uL (0.00-0.03); Imm Gran Pct Auto 0.3 % (0.0-0.4); Lymphocytes Absolute Auto 2.1 X10*3/uL (1.2-4.9); Lymphocytes Percent Auto 28.3 % (20-40); Mean Corpuscular HGB Conc 32.1 g/dl (31.0-35.0); Mean Corpuscular Hemoglobin 25.5 pg (27.0-33.0); Mean Corpuscular Volume 79.7 fL (80.0-98.0); Mean Platelet Volume 10.1 fL (9.4-12.3); Monocytes Absolute Auto 0.5 X10*3/uL (0.1-1.2); Monocytes Percent Auto 6.5 % (2-11); Neutrophils Absolute Auto 4.4 x10*3/uL (2.0-8.3); Neutrophils Percent Auto 60.7 % (45-73); Platelet Count 316 X10*3/uL (160-400); Red Blood Count 4.62 X10*6/uL (4.20-5.50); Red Cell Distribution Width 14.6 % (11.0-16.0); White Blood Count 7.2 X10*3/uL (4.8-10.8)
[2023-04-22 19:33] LABS: Prothrombin Time 12.3 SEC (11.1-13.3)
[2023-04-22 19:35] LABS: D Dimer High Sensitivity 155 NG/ML; Partial Thromboplastin Time 28.1 SEC (26.0-36.4)
[2023-04-22 19:40] LABS: Alanine Aminotransferase 10 U/L (0-31); Alkaline Phosphatase 42 U/L (39-117); Anion Gap 12 (12-20); Aspartate Amino Transferase 16 U/L (5-31); Bilirubin Total 0.5 mg/dL (0.0-1.0); Blood Urea Nitrogen 20 mg/dL (9-16); Calcium 8.6 mg/dL (8.4-10.2); Carbon Dioxide 24 mmol/L (22-29); Chloride 108 mmol/L (96-108); Creatinine Clr Calc Pharmacy 95.6; Estimated Glomerular Filt Rate > 60; Glucose Random 77 mg/dL (60-115); Potassium 3.8 mmol/L (3.3-5.1); Sodium 140 mmol/L (135-145); Total Protein 7.5 g/dL (6.5-8.0)
--- NOTE | 2023-04-22 22:11 | ED.GENADULT ---
HPI - General Adult General Chief complaint: General Medical Stated complaint: Bloodclot Time Seen by Provider: 04/22/23 21:38 History of Present Illness HPI narrative: Patient is a 42-year-old female with a history of blood clots in the past. At the time patient was on hormonal therapy. She denies any trauma to the legs. Currently not on hormones. Patient is from home. Complaining of pain to the left leg that is dull slightly different than previous DVT pain patient denies any swelling to the legs. Was worried she has a blood clot there came to the ED for further evaluation. Denies any history of traveling. Not on control. No history of cancer. Currently not on anticoagulation Related Data Previous Rx's Medication Instructions Recorded nirmatrelvir 300 mg (150 mg See Rx Instructions PO .COMPLEX 05/18/22 x2)-ritonavir 100 mg tablet,dose #30 ea pack (Paxlovid) levothyroxine 112 mcg tablet 112 mcg PO DAILY #90 tabs 11/16/22 cholecalciferol (vitamin D3) 25 25 mcg PO DAILY #90 tabs 02/09/23 mcg (1,000 unit) tablet Allergies Allergy/AdvReac Type Severity Reaction Status Date / Time No Known Allergies Allergy Verified 04/22/23 19:11 Review of Systems Review of Systems: Positive leg pain. Yes all other systems are reviewed and are negative PMFSH Past Medical History Attestation statement: The following information was validated with the patient. 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 Oriented X3. No acute distress. Eyes: Pupils equal, round and reactive to light. ENT: Pharynx normal. Neck: Normal inspection. Neck supple. No lymph nodes noted. No crepitus CVS: Normal heart rate and rhythm. Pulses normal. Normal S1 and S2 Respiratory: No respiratory distress. Breath sounds normal. No Wheezing. No rales Abdomen: Soft and nontender. No rigidity. No distention. good BS x4 Skin: Skin warm and dry. Normal skin color. Normal skin turgor. Extremities: No lower extremity edema. Neurovascular intact to all extremities. No Lacerations. No Rash. Calf size equal at 10 cm below the tibial tuberosity. There is good pulses distally sensation intact there is negative Homans signs Neuro: Oriented X 3. No motor deficit. No sensory deficit. Moving all extermities. No slurred speech Medical Decision Making Medical Decision Making MDM Narrative: Patient well appearing no acute distress. Complaining of pain to the left leg. Worried that she has a blood clot. Patient's lab showed a normal D-dimer. In the setting of not being on control. Patient's risk is rather low. [place] that this time patient should not receive anticoagulation. Will get patient an ultrasound in a.m.. The request was signed. Patient to call in the morning. Blood count is normal white count is normal no evidence for cellulitis. Good distal pulses no evidence for peripheral vascular problems. Patient's abdomen is soft nontender she is well appearing. Will discharge patient Differential Diagnosis Differential Diagnoses: The differential diagnosis associated with the presentation includes DVT, cellulitis, dependent edema Admission/Observation Consideration of admission/observation: Escalation of care including admission/observation considered Not needed Lab Data [facility] Lab Attestation statement: I reviewed the patient's lab results. 04/22/23 19:21 04/22/23 19:21 Labs: Lab Results 04/22/23 Range/Units 19:21 WBC 7.2 (4.8-10.8) X10*3/uL RBC 4.62 (4.20-5.50) X10*6/uL Hgb 11.8 L (12.0-16.0) g/dl Hct 36.8 L (37.0-47.0) % MCV 79.7 L (80.0-98.0) fL MCH 25.5 L (27.0-33.0) pg MCHC 32.1 (31.0-35.0) g/dl RDW 14.6 (11.0-16.0) % Plt Count 316 D (160-400) X10*3/uL MPV 10.1 (9.4-12.3) fL Immature Gran % (Auto) 0.3 (0.0-0.4) % Neut % (Auto) 60.7 (45-73) % Lymph % (Auto) 28.3 (20-40) % [place] % (Auto) 6.5 (2-11) % Eos % (Auto) 3.0 (0-4) % Baso % (Auto) 1.2 (0-2) % Lymph # (Auto) 2.1 (1.2-4.9) X10*3/uL [place] # (Auto) 0.5 (0.1-1.2) X10*3/uL Eos # (Auto) 0.2 (0.0-0.4) X10*3/uL Baso # (Auto) 0.1 (0.0-0.2) X10*3/uL Abs Immat Gran (auto) 0.02 (0.00-0.03) X10*3/uL Absolute Neuts (auto) 4.4 (2.0-8.3) x10*3/uL Absolute Nucleated RBC 0.000 (0.0-0.012) X10*3/uL Nucleated RBC % (auto) 0.0 (0.0-0.2) /100WBC PT 12.3 (11.1-13.3) SEC INR 1.0 (0.9-1.1) APTT 28.1 (26.0-36.4) SEC D-Dimer High Sensitivty 155 NG/ML Sodium 140 (135-145) mmol/L Potassium 3.8 (3.3-5.1) mmol/L Chloride 108 (96-108) mmol/L Carbon Dioxide 24 (22-29) mmol/L Anion Gap 12 (12-20) BUN 20 H (9-16) mg/dL Creatinine 0.76 (0.5-1.4) mg/dL Estim Creat Clear Calc 95.6 Estimated GFR > 60 Random Glucose 77 (60-115) mg/dL Calcium 8.6 D (8.4-10.2) mg/dL Total Bilirubin 0.5 (0.0-1.0) mg/dL AST 16 (5-31) U/L ALT 10 (0-31) U/L Alkaline Phosphatase 42 (39-117) U/L Total Protein 7.5 (6.5-8.0) g/dL Albumin 4.0 (3.5-5.0) g/dL Prescription Management No pain meds no antibiotics no antiviral given as it is not needed Chronic Conditions Previous history of blood clots Discharge Plan Discharge Clinical Impression: History of deep vein thrombosis (DVT) during Patient Disposition: Home, Self-Care Instructions: Leg Pain (ED) Prescriptions: No Action Paxlovid 300 mg (150 mg x 2)-100 mg tablets,dose pack See Rx Instructions PO .COMPLEX Qty: 30 0RF Rx Instructions: take TWO 150 mg tablets of nirmatrelvir with ONE 100 mg tablet of ritonavir twice daily for 5 days PO levothyroxine 112 mcg tablet 112 mcg PO DAILY Qty: 90 1RF cholecalciferol (vitamin D3) 25 mcg (1,000 unit) tablet 25 mcg PO DAILY Qty: 90 0RF Referrals: Carmela Stewart FNP [Primary Care Provider] - (Please get ultrasound done in the morning)
[2023-04-22 22:55] VITALS: BP 107/69; PULSE 69; RESP 16; O2SAT 98
== END 2023-04-22 22:30 | disposition home or self-care (01) ==
PROVIDERS: Physician Assistant Medical; Emergency Provider Emergency Medicine Emergency Medical Services; PCP Nurse Practitioner Family
DX: M79.605 Pain in left leg (principal); Z79.899 Other long term (current) drug therapy
CPT/HCPCS: 36415; 80053; 85025; 85379; 85610; 85730; 99283; 99284

== ENCOUNTER 2023-04-23 12:35 | Outpatient (REF) | payer OTHER, SELFPAY ==
--- NOTE | ~2023-04-23 | US_ITS ---
EXAMINATION: US VENOUS ULTRASOUND WITH DOPPLER LOWER EXTREMITY, LEFT CLINICAL INFORMATION: Left thigh pain. Known deep venous thrombosis in the left common femoral vein 2020. COMPARISON: None available. TECHNIQUE: Ultrasound of the deep veins is performed from the hip to the calf with compression sonography and color and pulse Doppler assessment. Spectral analysis with color-flow imaging is performed. FINDINGS: There is normal venous compression and respiratory variation and augmented flow. The visualized femoral vein, profunda femoral vein, popliteal vein, and the trifurcation region shows no evidence of deep venous thrombosis. There is no significant popliteal fossa cyst. Left common femoral vein is partially compressible with small burden chronic appearing thrombus noted along the posterior wall. There is normal color flow in the remainder of the patent lumen of the common femoral vein. US/US venous duplex LE LT IMPRESSION: Small burden mural thrombus in the left common femoral vein which has an appearance suggestive of chronic thrombus. No evidence of thrombosis in the remainder of the left lower extremity deep veins. Preliminary report was called to David Ma by the cath lab technologist.
== END 2023-04-23 12:36 | disposition home or self-care (01) ==
LOC: HO.US 12:35
PROVIDERS: PCP Nurse Practitioner Family; Visit Provider Emergency Medicine Emergency Medical Services
DX: M79.605 Pain in left leg (principal)
CPT/HCPCS: 93971

== ENCOUNTER 2023-05-27 13:25 | Outpatient (REF) | payer OTHER, SELFPAY ==
[2023-05-27 15:10] LABS: TSH reflex Free T4 3.63 uIU/mL (0.32-4.0); Vitamin D 25-OH Total 15.3 ng/mL (>30)
== END 2023-05-27 13:26 | disposition home or self-care (01) ==
LOC: HO.LAB 13:25
PROVIDERS: Visit Provider Nurse Practitioner Family
DX: E03.9 Hypothyroidism, unspecified (principal); R79.89 Other specified abnormal findings of blood chemistry
CPT/HCPCS: 36415; 82306; 84443

== ENCOUNTER 2023-09-08 10:04 | Outpatient (AMB) | payer OTHER, SELFPAY ==
--- NOTE | 2023-09-08 10:17 | A.OFFPC_ITS ---
Vital Signs 09/08/23 10:18 Height 5 ft 7 in Weight 152 lb BMI 23.8 BP 100/60 Blood Pressure Location Lt brachial Position Sitting Pulse 74 Pulse Source Pulse Oximeter Pulse Oximetry (%) 98 Oxygen Delivery Method Room Air Intake Visit Reasons: medication follow Intake Note: A patient from [facility]'s office is here for a thyroid lab request and a refill of medication until they are scheduled with their new upcoming primary care provider. Bar Staff Required: No Accompanied by: children Allergies No Known Allergies Allergy (Verified 09/08/23 10:31) Medication List - Last Reconciled 09/08/23 by Jose David Patrick PA-C cholecalciferol (vitamin D3) 25 mcg PO DAILY levothyroxine 112 mcg PO DAILY Tobacco use date assessed: 09/08/23 Dental Screening Dental Screen Date: 09/08/23 Did you have a dental visit in the last 12 months?: Yes Did you have a dental problem in the last 6 months where you did not have access to dental care?: No Was dental information given to patient?: Patient has dentist HPI medication follow HPI Details Patient is a 43-year-old female here today for a medication follow-up. This is the 1st time I am meeting this 43-year-old female with a past medical history significant for hypothyroidism and vitamin-D deficiency. Patient continues on levothyroxine 112 mcg. Most recent TSH is have been stable. She is concerned as her TSH has gradually made an increase over the last 6 months. Will recheck TSH and if high normal or above 4 will consider increasing her levothyroxine to 125 mcg. Otherwise uses vitamin-D [id number]. 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 1. Little interest or pleasure in doing things: not at all 2. Feeling down, depressed, or hopeless: not at all 3. Trouble falling or staying asleep, or sleeping too much: not at all 4. Feeling tired or having little energy: not at all 5. Poor appetite or overeating: not at all 6. Feeling bad about yourself - or that you are a failure or have let yourself or your family down: not at all 7. Trouble concentrating on things, such as reading the newspaper or watching television: not at all 8. Moving or speaking so slowly that other people could have noticed. Or the op posite - being so fidgety or restless that you have been moving around a lot more than usual: not at all 9. Thoughts that you would be better off or of hurting yourself in some way: not at all Total score: 0 Depression Screening Interpretation: Negative Depression Screening Done: Yes 44418 - PHQ-9 Billing: Yes Source: Developed by Drs. Jacobo Davison, Margie Asencio, Rob Velasquez and colleagues, with an educational jessica from [employer]. Thrive Questionnaire Date Thrive assessed: 09/08/23 I am a: Patient What is your living situation today?: I have a steady place to live Within the past 12 months, did the food you bought not last and you didn't have the money to get more?: Never true Within the past 12 months, did you worry whether your food would run out before you got money to buy more?: Never true Do you have trouble paying for medicines?: No Do you have trouble getting transportation to medical appointments?: No Do you have trouble paying your heating and electricity bill?: No Do you have trouble taking care of your child, family member or friend?: No Do you have trouble with day-to-day activities such as bathing, preparing meals, shopping, managing finances, etc.?: No Are you currently unemployed and looking for a job?: No Are you interested in more education?: No Please select the resources that you would like help with: None Currently or been in a relationship where the following occur: no concerns reported THRIVE Score: 0 AUDIT C Alcohol Use Questionnaire (AUDIT-C) 1. How often do you have a drink containing alcohol?: Never 3. How often do you have six or more drinks on one occasion?: Never Total Score: 0 JAYDA-7 AMB Questionnaire JAYDA-7 Date JAYDA - 7 assessed: 09/08/23 Feeling nervous, anxious, or on edge: 0 = Not at all Not being able to stop or control worryin = Not at all Worrying too much about different things: 0 = Not at all Trouble relaxin = Not at all Being so restless that it is hard to sit still: 0 = Not at all Becoming easily annoyed or irritable: 0 = Not at all Feeling afraid as if something awful might happen: 0 = Not at all Total JAYDA-7 score (0-4 normal; 5-9 mild; 10-14 moderate; 15-21 severe): 0 Source: Developed by Drs. Jacobo Davison, Margie Asencio, Rob Velasquez and colleagues, with an educational jessica from [employer]. JAYDA-7 Assessment Billing JAYDA-7 Assessment Tool: JAYDA-7 Assessment 39813 Review of Systems Const Denies headache(s) Eyes Denies loss of vision ENT Denies vertigo, Denies dizziness, Denies headache(s) and Denies sore throat Card Denies chest pain, Denies leg edema and Denies lightheadedness Resp Denies cough, Denies hemoptysis and Denies wheezing GI Denies abdominal pain, Denies melena, Denies constipation, Denies diarrhea and Denies vomiting Denies urinary frequency, Denies dysuria and Denies urinary urgency Musc Denies arthralgias, Denies joint swelling, Denies numbness and Denies tingling Neuro Denies Abnormal speech present, Denies behavioral changes, Denies vertigo, Denies dizziness, Denies headache(s), Denies loss of vision, Denies memory loss, Denies numbness and Denies tingling Psych Denies anxiety, Denies behavioral changes, Denies depression, Denies memory loss and Denies panic attacks [place]/Lymph Denies easy bleeding and Denies easy bruising Aller/Immun Denies wheezing Physical exam (Primary Care) Vital Signs: Last Vital Signs Pulse 74 09/08/23 10:18 BP 100/60 09/08/23 10:18 Pulse Ox 98 09/08/23 10:18 Oxygen Delivery Method Room Air 09/08/23 10:18 BMI result Body Mass Index 23.8 Tobacco/Smoking Status: Tobacco use Status Tobacco use date assessed 09/08/23 09/08/23 10:30 Patient Tobacco Use Status Former Tobacco user 09/08/23 10:20 e-Cigarette/Vaping Use Never Used 09/08/23 10:20 PHQ-9: PHQ-9 Score PHQ-9: Total score 0 09/08/23 10:33 Depression Screening Interpretation: Negative Thrive Assessment: Date of Thrive Assessment Date Thrive assessed 09/08/23 09/08/23 10:27 Currently or been in a relationship where the following occur: no concerns reported Const General: healthy appearing, no acute distress, alert and awake Nutritional Appearance: well nourished Orientation/consciousness: oriented to person, oriented to place and oriented to time HENMT Ears: TM's normal bilaterally General nose exam: Normal nasal mucous membranes and turbinates present Eyes Conjunctivae: conjunctivae normal Sclerae: sclerae normal Pupils: Equal, round and reactive pupils present Neck Neck: Yes no lymphadenopathy and Yes no JVD Thyroid: Thyroid normal Carotids: no bruits Resp Effort & Inspection: normal respiratory effort and not tachypneic Auscultation: no crackles, no rales, no rhonchi and no wheezes Cardio Rate: regular rate Rhythm: regular rhythm Heart sounds: no murmurs and normal S1 and S2 GI Palpation (GI): Soft to palpation, nontender, no hepatomegaly and no splenomegaly Auscultation: normal bowel sounds Skin General skin exam: no rashes or lesions noted and dry skin Neuro General: oriented to person, oriented to place and oriented to time Cranial nerves: Yes Equal, round and reactive pupils present Speech: No Abnormal speech present Gait exam (Neuro): Normal gait present Motor exam (neuro): no tremor noted Extrem Right upper extremity: full ROM Left upper extremity: full ROM Right lower extremity: full ROM; no edema Left lower extremity: full ROM; no edema Psych Mental Status: mental status grossly normal Speech and movement: Normal speech and movement present Affect: normal affect Attitude: cooperative Thought process: Normal thought process present Assessment and Plan Assessment & Plan (1) Hypothyroid: Code(s): E03.9 - Hypothyroidism, unspecified Qualifiers: Hypothyroidism type: unspecified Qualified Code(s): E03.9 - Hypothyroidism, unspecified Plan: Has hypothyroidism, TSH is have been stable though steadily trending up. Will recheck TSH in if continues to elevate will consider small increase in her levothyroxine to 125 mcg. (2) Low vitamin D level: Code(s): R79.89 - Other specified abnormal findings of blood chemistry Orders: Orders TSH reflex Free T4 Today E03.9 - Hypothyroidism, unspecified Comprehensive Issue. Panel Fast 2 Months E03.9 - Hypothyroidism, unspecified, Z13.1 - Encounter for screening for diabetes mellitus Vitamin D 25-OH Total Today E03.9 - Hypothyroidism, unspecified Coding Level of Care Code Est Pt Level 4 (83984) Diagnoses Hypothyroidism, unspecified type E03.9 Hypothyroidism type: unspecified Low vitamin D level R79.89 Additional Codes JAYDA-7 Assessment Billing - JAYDA-7 Assessment Tool: JAYDA-7 Assessment 09651 ([id number])
[2023-09-08 10:18] VITALS: BP 100/60; PULSE 74; O2SAT 98; BMI 23.8
== END 2023-09-08 10:45 | disposition home or self-care (01) ==
PROVIDERS: PCP Nurse Practitioner Family; Visit Provider Physician Assistant
DX: E03.9 Hypothyroidism, unspecified (principal); R79.89 Other specified abnormal findings of blood chemistry
CPT/HCPCS: 99214

== ENCOUNTER 2023-09-08 10:51 | Outpatient (REF) | payer OTHER, SELFPAY ==
[2023-09-08 12:47] LABS: TSH reflex Free T4 2.05 uIU/mL (0.32-4.0); Vitamin D 25-OH Total 17.5 ng/mL (>30)
== END 2023-09-08 10:52 | disposition home or self-care (01) ==
LOC: HO.LAB 10:51
PROVIDERS: PCP Physician Assistant; Visit Provider Physician Assistant
DX: E03.9 Hypothyroidism, unspecified (principal)
CPT/HCPCS: 36415; 82306; 84443

== ENCOUNTER 2024-02-15 13:00 | Outpatient (REF) | payer OTHER, SELFPAY ==
[2024-02-15 15:50] LABS: Alanine Aminotransferase 10 U/L (0-31); Albumin Level 3.9 g/dL (3.5-5.0); Alkaline Phosphatase 49 U/L (39-117); Anion Gap 11 (12-20); Aspartate Amino Transferase 12 U/L (5-31); Bilirubin Total 0.4 mg/dL (0.0-1.0); Blood Urea Nitrogen 17 mg/dL (9-16); Carbon Dioxide 25 mmol/L (22-29); Chloride 109 mmol/L (96-108); Estimated Glomerular Filt Rate > 60; Glucose Fasting 83 mg/dL (60-99); Potassium 4.1 mmol/L (3.3-5.1); Sodium 141 mmol/L (135-145); Total Protein 7.5 g/dL (6.5-8.0)
[2024-02-15 15:57] LABS: TSH reflex Free T4 3.18 uIU/mL (0.32-4.0)
== END 2024-02-15 13:01 | disposition home or self-care (01) ==
LOC: HO.LAB 13:00
PROVIDERS: PCP Physician Assistant; Visit Provider Physician Assistant
DX: E03.9 Hypothyroidism, unspecified (principal); Z13.1 Encounter for screening for diabetes mellitus
CPT/HCPCS: 36415; 80053; 84443

== ENCOUNTER 2024-03-15 13:29 | Outpatient (AMB) | payer OTHER, SELFPAY ==
[2024-03-15 13:30] VITALS: BP 114/68; PULSE 75; O2SAT 98; BMI 25.2
--- NOTE | 2024-03-15 13:30 | MHC.PC.OV ---
Vital Signs 03/15/24 13:30 Height 5 ft 7 in Weight 161 lb BMI 25.2 BP 114/68 Blood Pressure Location Lt brachial Position Sitting Pulse 75 Pulse Source Pulse Oximeter Pulse Oximetry (%) 98 Oxygen Delivery Method Room Air Intake Visit Reasons: Annual Exam Intake Note: Patient is here today for a physical. 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: No Allergies No Known Allergies Allergy (Verified 03/15/24 13:40) Medication List - Last Reconciled 03/15/24 by Christine Taylor PA-C levothyroxine 112 mcg PO DAILY Tobacco use date assessed: 03/15/24 Dental Screening Dental Screen Date: 03/15/24 Did you have a dental visit in the last 12 months?: Yes Did you have a dental problem in the last 6 months where you did not have access to dental care?: No Was dental information given to patient?: Patient has dentist HPI Annual Exam HPI Details 43-year-old female with past medical history of hypothyroidism and vitamin-D deficiency last seen by [facility] 09/08/2023 coming in for annual exam. Patient states several months ago she did have right hip pain after excessive exercise that spontaneously resolved and has not had recurrence. Her last mammogram was about 5 years ago. 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 1. Little interest or pleasure in doing things: not at all 2. Feeling down, depressed, or hopeless: not at all 3. Trouble falling or staying asleep, or sleeping too much: not at all 4. Feeling tired or having little energy: not at all 5. Poor appetite or overeating: not at all 6. Feeling bad about yourself - or that you are a failure or have let yourself or your family down: not at all 7. Trouble concentrating on things, such as reading the newspaper or watching television: not at all 8. Moving or speaking so slowly that other people could have noticed. Or the opposite - being so fidgety or restless that you have been moving around a lot more than usual: not at all 9. Thoughts that you would be better off or of hurting yourself in some way: not at all Total score: 0 Depression Screening Interpretation: Negative Depression Screening Done: Yes [id number] - PHQ-9 Billing: Yes Source: Developed by Drs. Jacobo Davison, Margie Asencio, Rob Velasquez and colleagues, with an educational jessica from [employer]. Thrive Questionnaire Date Thrive assessed: 09/08/23 I am a: Patient What is your living situation today?: I have a steady place to live Within the past 12 months, did the food you bought not last and you didn't have the money to get more?: Never true Within the past 12 months, did you worry whether your food would run out before you got money to buy more?: Never true Do you have trouble paying for medicines?: No Do you have trouble getting transportation to medical appointments?: No Do you have trouble paying your heating and electricity bill?: No Do you have trouble taking care of your child, family member or friend?: No Do you have trouble with day-to-day activities such as bathing, preparing meals, shopping, managing finances, etc.?: No Are you currently unemployed and looking for a job?: No Are you interested in more education?: No Please select the resources that you would like help with: None Currently or been in a relationship where the following occur: No concerns reported THRIVE Score: 0 AUDIT C Alcohol Use Questionnaire (AUDIT-C) 1. How often do you have a drink containing alcohol?: Never 3. How often do you have six or more drinks on one occasion?: Never Total Score: 0 JAYDA-7 AMB Questionnaire JAYDA-7 Date JAYDA - 7 assessed: 09/08/23 Feeling nervous, anxious, or on edge: 0 = Not at all Not being able to stop or control worryin = Not at all Worrying too much about different things: 0 = Not at all Trouble relaxin = Not at all Being so restless that it is hard to sit still: 0 = Not at all Becoming easily annoyed or irritable: 0 = Not at all Feeling afraid as if something awful might happen: 0 = Not at all Total JAYDA-7 score (0-4 normal; 5-9 mild; 10-14 moderate; 15-21 severe): 0 Source: Developed by Drs. Jacobo Davison, Margie Asencio, Rob Velasquez and colleagues, with an educational jessica from [employer]. JAYDA-7 Assessment Billing JAYDA-7 Assessment Tool: JAYDA-7 Assessment 26937 Review of Systems Const Denies body aches, Denies fatigue, Denies fever(s), Denies frequent falls, Denies headache(s) and Denies weakness Eyes Reports no additional complaints and Denies change in vision ENT Denies dysphagia, Denies dizziness, Denies facial pain, Denies headache(s), Denies nasal congestion and Denies odynophagia Card Denies chest pain, Denies syncope, Denies irregular heart rhythm, Denies leg edema, Denies lightheadedness and Denies dyspnea Resp Denies cough and Denies dyspnea GI Denies constipation, Denies dysphagia, Denies dyspepsia, Denies diarrhea, Denies nausea, Denies odynophagia and Denies vomiting Denies urinary frequency, Denies dysuria, Denies urinary hesitancy and Denies urinary urgency Musc Denies back pain and Denies myalgias Skin/Breast Reports system reviewed and no additional complaints, except as documented Neuro Denies dizziness, Denies syncope, Denies frequent falls, Denies headache(s) and Denies weakness Psych Reports no additional complaints Endo Denies fatigue Physical exam (Primary Care) Vital Signs: Last Vital Signs Pulse 75 03/15/24 13:30 BP 114/68 03/15/24 13:30 Pulse Ox 98 03/15/24 13:30 Oxygen Delivery Method Room Air 03/15/24 13:30 BMI result Body Mass Index 25.2 Tobacco/Smoking Status: Tobacco use Status Tobacco use date assessed 03/15/24 03/15/24 13:35 Patient Tobacco Use Status Former Tobacco user 03/15/24 13:31 e-Cigarette/Vaping Use Never Used 03/15/24 13:31 PHQ-9: PHQ-9 Score PHQ-9: Total score 0 03/15/24 13:32 Depression Screening Interpretation: Negative Thrive Assessment: Date of Thrive Assessment Date Thrive assessed 09/08/23 03/15/24 13:31 Currently or been in a relationship where the following occur: No concerns reported Const General: cooperative, healthy appearing, comfortable and no acute distress Orientation/consciousness: patient oriented x3 HENMT Head: Yes normocephalic Ears: hearing grossly normal bilaterally, external ears normal, TM's normal bilaterally and EAC's normal General nose exam: Normal external nose present Face and sinus: Yes normal facial exam and Yes sinuses nontender Mouth: Normal oral and palatal mucosa present and tongue normal Throat: Yes posterior oropharynx normal Eyes General: appearance normal, both eyes and all related structures Conjunctivae: conjunctivae normal Pupils: Equal, round and reactive pupils present EOM: EOMs intact bilaterally and No Nystagmus present Neck Neck: Yes normal visual inspection, Yes full ROM and Yes no lymphadenopathy Chest Chest palpation & inspection: normal inspection of the chest Resp Effort & Inspection: normal respiratory effort Auscultation: clear to auscultation bilaterally, no crackles, no rales, no rhonchi, no wheezes and breath sounds present Cardio Rate: regular rate Rhythm: regular rhythm Peripheral pulses: radial pulses present and dorsalis pedis present GI Inspection: Yes normal to inspection and No Abdominal wall edema Palpation (GI): Soft to palpation, not firm and nontender Auscultation: normal bowel sounds Rectal Exam - Female: deferred General: Yes no CVA tenderness Back/Spine/Pelvis Back: no CVA tenderness Skin General skin exam: no rashes or lesions noted Neuro General: patient oriented x3 Cranial nerves: Yes Equal, round and reactive pupils present, Yes Midline tongue present, Yes Ability to bilaterally elevate shoulders present and No Nystagmus present Gait exam (Neuro): Normal gait present Extrem General: Yes normal to inspection, Yes full ROM, No no pedal edema and No edema Psych Speech and movement: Normal speech and movement present Affect: normal affect Insight: Good insight present (Psych) Judgement: Good judgement present (Psych) Coding Level of Care Code Est Pt Prev Care 40-64y(65623) Diagnoses Low vitamin D level R79.89 History of deep vein thrombosis (DVT) during Z86.718; Z87.59 Hypothyroidism, unspecified type E03.9 Hypothyroidism type: unspecified Annual physical exam Z00.00 Screening for breast cancer Z12.39 Additional Codes JAYDA-7 Assessment Billing - JAYDA-7 Assessment Tool: JAYDA-7 Assessment 69762 ([id number]) PHQ-9 - 01111 - PHQ-9 Billing: Yes ([id number]) Assessment & Plan Assessment & Plan (1) Low vitamin D level: Code(s): R79.89 - Other specified abnormal findings of blood chemistry Category: Medical Plan: Ordered for updated blood work. (2) History of deep vein thrombosis (DVT) during : Code(s): Z86.718 - Personal history of other venous thrombosis and embolism; Z87.59 - Personal history of other complications of , childbirth and the puerperium Category: Medical Plan: No recurrence since has been cleared to discontinue any anticoagulation. (3) Hypothyroid: Code(s): E03.9 - Hypothyroidism, unspecified Category: Medical Qualifiers: Hypothyroidism type: unspecified Qualified Code(s): E03.9 - Hypothyroidism, unspecified Plan: Presently on levothyroxine 112 mcg. Ordered for updated blood work. (4) Annual physical exam: Code(s): Z00.00 - Encounter for general adult medical examination without abnormal findings Category: Medical Plan: Patient is up-to-date on all recommended vaccinations for her age. Ordered for updated blood work and we will follow up yearly or sooner if new problems arise. (5) Screening for breast cancer: Code(s): Z12.39 - Encounter for other screening for malignant neoplasm of breast Category: Medical Plan: Her mammogram is not up-to-date and she states she would prefer an ultrasound and is declining a mammogram at this time. Discussed with patient that mammograms are typically more specific and sensitive however she prefers ultrasound. Discussed with patient this testing may not be covered by insurance. Plan This note was constructed using voice recognition software. While every effort has been made to ensure accuracy and sewing techniques demonstrator, still areas may have been included sometimes these areas may affect the content or meeting of the given symptoms. Total time spent caring for the patient today was 30 minutes. This includes time spent before the visit reviewing the chart, time spent during the visit, and time spent after the visit and documentation. Orders: Orders US breast LT complete Today Z12.39 - Encounter for other screening for malignant neoplasm of breast US breast RT complete Today Z12.39 - Encounter for other screening for malignant neoplasm of breast Comprehensive Met. Panel Today Z00.00 - Encounter for general adult medical examination without abnormal findings Complete Blood Count Auto Diff Today Z00.00 - Encounter for general adult medical examination without abnormal findings Free T4 (Free Thyroxine) Today Z00.00 - Encounter for general adult medical examination without abnormal findings TSH reflex Free T4 Today Z00.00 - Encounter for general adult medical examination without abnormal findings UA CC w/rflx Micro + Cult Today R35.89 - Other polyuria Vitamin B12 and Folate Today Z00.00 - Encounter for general adult medical examination without abnormal findings Vitamin D 25-OH (D2 and D3) Today Z00.00 - Encounter for general adult medical examination without abnormal findings Lipid Panel Today Z00.00 - Encounter for general adult medical examination without abnormal findings Medications: Refilled levothyroxine 112 mcg PO DAILY 90 tabs 1RF E03.9 - Hypothyroidism, unspecified
== END 2024-03-15 13:58 | disposition home or self-care (01) ==
LOC: HO.HMCH 13:29
DX: R79.89 Other specified abnormal findings of blood chemistry (principal); Z86.718 Personal history of other venous thrombosis and embolism; Z87.59 Personal history of other complications of pregnancy, childbirth and the puerperium; E03.9 Hypothyroidism, unspecified; Z00.00 Encounter for general adult medical examination without abnormal findings; Z12.39 Encounter for other screening for malignant neoplasm of breast

== ENCOUNTER → 2024-03-15 13:29 | Outpatient (BNVA) | payer OTHER, SELFPAY | DX: Z00.00 Encounter for general adult medical examination without abnormal findings (principal); R79.89 Other specified abnormal findings of blood chemistry; E03.9 Hypothyroidism, unspecified; Z86.718 Personal history of other venous thrombosis and embolism; Z87.59 Personal history of other complications of pregnancy, childbirth and the puerperium | CPT/HCPCS: 96127; 99396 ==

== ENCOUNTER 2024-05-14 14:11 | Outpatient (REF) | payer OTHER, SELFPAY ==
[2024-05-14 14:30] LABS: MANUAL DIFF FLAG NO
[2024-05-14 14:48] LABS: Basophils Absolute Auto 0.1 X10*3/uL (0.0-0.2); Basophils Percent Auto 1.9 % (0-2); Eosinophils Absolute Auto 0.3 X10*3/uL (0.0-0.4); Eosinophils Percent Auto 4.4 % (0-4); Hemoglobin 10.7 g/dl (12.0-16.0); Imm Gran Abs Auto 0.02 X10*3/uL (0.00-0.03); Imm Gran Pct Auto 0.3 % (0.0-0.4); Lymphocytes Absolute Auto 1.5 X10*3/uL (1.2-4.9); Lymphocytes Percent Auto 21.6 % (20-40); Mean Corpuscular HGB Conc 30.6 g/dl (31.0-35.0); Mean Corpuscular Hemoglobin 23.2 pg (27.0-33.0); Mean Corpuscular Volume 75.8 fL (80.0-98.0); Mean Platelet Volume 10.1 fL (9.4-12.3); Monocytes Absolute Auto 0.5 X10*3/uL (0.1-1.2); Monocytes Percent Auto 7.3 % (2-11); Neutrophils Absolute Auto 4.5 x10*3/uL (2.0-8.3); Neutrophils Percent Auto 64.5 % (45-73); Platelet Count 340 X10*3/uL (160-400); Red Blood Count 4.62 X10*6/uL (4.20-5.50); Red Cell Distribution Width 16.1 % (11.0-16.0); White Blood Count 6.9 X10*3/uL (4.8-10.8)
[2024-05-14 15:47] LABS: Folate 7.9 ng/mL (> or = 4.0); Vitamin B12 407 pg/mL (200-900)
[2024-05-14 16:20] LABS: Alanine Aminotransferase 13 U/L (0-31); Alkaline Phosphatase 44 U/L (39-117); Anion Gap 8 (12-20); Aspartate Amino Transferase 18 U/L (5-31); Bilirubin Total 0.4 mg/dL (0.0-1.0); Blood Urea Nitrogen 16 mg/dL (9-16); Carbon Dioxide 26 mmol/L (22-29); Chloride 109 mmol/L (96-108); Cholesterol 205 mg/dL (<200); Estimated Glomerular Filt Rate > 60; Free T4 (Free Thyroxine) 1.18 ng/dL (0.71-1.85); Glucose Random 94 mg/dL (60-115); HDL Cholesterol 81 mg/dL (>40); LDL Cholesterol Calculated 110 mg/dL (<100); Potassium 4.1 mmol/L (3.3-5.1); Sodium 139 mmol/L (135-145); TSH reflex Free T4 3.58 uIU/mL (0.32-4.0); Total Protein 7.6 g/dL (6.5-8.0); Triglycerides 72 mg/dL (<150)
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
[2024-05-18 15:03] LABS: Vitamin D 25-OH, D2 <4 ng/mL; Vitamin D 25-OH, D3 16 ng/mL; Vitamin D 25-OH, Total 16 ng/mL (30-100)
== END 2024-05-14 14:12 | disposition home or self-care (01) ==
LOC: HO.LAB 14:11
DX: Z00.00 Encounter for general adult medical examination without abnormal findings (principal)
CPT/HCPCS: 36415; 80053; 80061; 82306; 82607; 82746; 84439; 84443; 85025

== ENCOUNTER 2024-05-17 14:42 | Outpatient (REF) | payer OTHER, SELFPAY ==
[2024-05-17 14:51] LABS: Appearance Urine Clear; Color Urine Yellow; Glucose Urine UA Negative (Negative); Leukocyte Esterase Urine Negative (Negative); Nitrite Urine Negative (Negative); Specific Gravity - Urine 1.025 (1.005-1.025); UMIC TRIGGER UACC YES; Urine Blood Small (1+) (Negative); Urine Ketones Negative (Negative); Urine Protein Negative (Neg-Trace)
[2024-05-17 14:57] LABS: Bacteria Urine 1+ (None Seen); Hyaline Casts Urine 0-2 /LPF (0-2); UACC Culture Trigger YES
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
== END 2024-05-17 14:43 | disposition home or self-care (01) ==
LOC: HO.LNP 14:42
DX: R35.89 Other polyuria (principal)
CPT/HCPCS: 81001; 87086

== ENCOUNTER 2024-09-18 12:52 | Outpatient (AMB) | payer OTHER, SELFPAY ==
[2024-09-18 12:53] VITALS: BP 120/70; PULSE 76; TEMP 37.1; O2SAT 98; BMI 25.1
--- NOTE | 2024-09-18 12:53 | AM.OFFWIN_ITS ---
Intake Vital Signs 09/18/24 12:53 Height 5 ft 7 in Weight 160 lb BMI 25.1 BP 120/70 Blood Pressure Location Lt brachial Position Sitting Pulse 76 Pulse Source Pulse Oximeter Temp 98.8 F Temp Source Oral Pulse Oximetry (%) 98 Oxygen Delivery Method Room Air Intake Visit Reasons: EP-b/l hand dryness issues Patient Tobacco Use Status: Former Tobacco user Allergies No Known Allergies Allergy (Verified 09/18/24 12:54) Do you need a note to return to daycare/school/sports/work: No HPI HPI Comments History of Present Illness Details History of Present Illness - The patient is a 44-year-old female pr esenting with itchy and dry patches on the skin on her hands. - These symptoms emerged a couple of wee ks ago following the use of a new hand wash, which has since been discontinued due to irritation. - Patches are characterized by itchiness and dryness, with lotion only providing temporary relief. - Despite using cortisone and Benadryl, the condition persists, prompting concerns from the patient who had not experienced similar symptoms in the past. - Frequent hand washing, due to her chil dcare responsibilities and cleaning, appears to exacerbate the symptoms. - Gloves are utilized but do not prevent symptom exacerbation entirely. Physical Exam General: Cooperative, healthy appearing, comfortable, no acute distress and well developed Orientation: Patient oriented x3 Limitations: No limitations Head: Normal to inspection Ears: Hearing grossly normal bilaterally Nose: Normal External nose present Face and sinus: Normal facial exam Eyes: Appearance normal, both eyes and all related structures Neck: Normal visual inspection and Yes full ROM Respiratory: Normal respiratory effort and able to speak in complete sentences. Skin: dry cracked skin with erythema, several spots on right hand, ciruclar erythema with central clearing on left volar wrist Neuro: Patient oriented x3 Extremities: Normal to inspection [facility] Medical History COVID-19 History of endometriosis History of ovarian cyst Surgical History History of surgery on lower extremity History of removal of cyst History of delivery Family History Mother HTN (hypertension) Father Ear infection Social History Housing: House Alcohol intake: never Patient Tobacco Use Status: Former Tobacco user e-Cigarette/Vaping Use: Never Used Second Hand Smoke Exposure: No service: No Current occupational status: unemployed 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 Cognitive needs: No Hearing needs: No Vision needs: No Review of Systems Const All systems reviewed & are unremarkable except as noted in HPI and below Physical Exam Vital Signs: Last Vital Signs Temp 98.8 F 09/18/24 12:53 Pulse 76 09/18/24 12:53 BP 120/70 09/18/24 12:53 Pulse Ox 98 09/18/24 12:53 Oxygen Delivery Method Room Air 09/18/24 12:53 BMI result Body Mass Index 25.1 Assessment & Plan Assessment & Plan (1) Eczema of both hands: Code(s): L30.9 - Dermatitis, unspecified Plan: The patient was diagnosed with eczema, for which I prescribed Triamcinolone Acetonide cream to be applied twice daily for 7-14 days, with Aquaphor ointment used in between applications. I explained to the patient the importance of avoiding application to thin skin areas, such as around the eyes and genitals, due to the potency of the medication. Furthermore, regular use of gloves was advised when handling cleaning agents, alongside moisturizing approaches to aid in skin recovery. If symptoms persist beyond 14 days, a follow-up with the primary care provider or a professor in family studies may be necessary. The treatment plan and safety precautions were discussed thoroughly, and the patient indicated understanding and agreement. Patient was informed and verbally consented to the use of an ambient scribe for clinic note documentation during this visit. Medications: New triamcinolone acetonide 0.5% do not exceed use greater than 14 days 1 appl topical BID 30 grams 0RF Coding Level of Care Code Est Pt Level 3 (60228) Diagnoses Eczema of both hands L30.9
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
== END 2024-09-18 14:35 | disposition home or self-care (01) ==
PROVIDERS: Visit Provider Physician Assistant
DX: L30.9 Dermatitis, unspecified (principal)

== ENCOUNTER → 2024-09-18 12:52 | Outpatient (BNVA) | payer OTHER, SELFPAY | PROVIDERS: Visit Provider Physician Assistant | DX: L30.9 Dermatitis, unspecified (principal) | CPT/HCPCS: 99212 ==

== ENCOUNTER 2024-11-13 09:26 | Outpatient (REF) | payer OTHER, SELFPAY ==
[2024-11-13 11:20] LABS: Free T4 (Free Thyroxine) 1.10 ng/dL (0.71-1.85)
== END 2024-11-13 09:27 | disposition home or self-care (01) ==
LOC: HO.LAB 09:26
DX: Z00.00 Encounter for general adult medical examination without abnormal findings (principal); E03.9 Hypothyroidism, unspecified; R79.89 Other specified abnormal findings of blood chemistry
CPT/HCPCS: 36415; 82306; 84439; 84443

== ENCOUNTER 2025-03-21 13:17 | Outpatient (AMB) | payer OTHER, SELFPAY ==
[2025-03-21 13:21] VITALS: BP 110/78; PULSE 64; TEMP 36.3; O2SAT 99; BMI 25.8
--- NOTE | 2025-03-21 13:21 | A.OFFPC_ITS ---
Vital Signs 03/21/25 13:21 Height 5 ft 7 in Weight 165 lb BMI 25.8 BP 110/78 Blood Pressure Location Lt brachial Position Sitting Pulse 64 Pulse Source Pulse Oximeter Temp 97.3 F Temp Source Temporal Artery Scan Pulse Oximetry (%) 99 Oxygen Delivery Method Room Air Intake Visit Reasons: Annual exam Intake Note: Patient is here today for a physical. Sports Centre Manager Required: No Allergies No Known Allergies Allergy (Verified 03/21/25 13:36) Medication List - Last Reconciled 03/21/25 by Christine Taylor PA-C cholecalciferol (vitamin D3) 25 mcg PO DAILY levothyroxine 112 mcg PO DAILY triamcinolone acetonide 0.5% 1 appl topical BID Tobacco use date assessed: 03/21/25 Dental Screening Dental Screen Date: 03/21/25 Did you have a dental visit in the last 12 months?: Yes Did you have a dental problem in the last 6 months where you did not have access to dental care?: No Was dental information given to patient?: Patient has dentist HPI Annual exam HPI Details 44-year-old female with past medical his tory of vitamin-D deficiency and hypothyroid last seen 03/2024 coming in for annual exam. Presenting for an annual wellness visit. She reports developing eczema on her hands starting in the last year, which she manages with a specific lotion. She notes frequent hand washing and wonders if stress, allergies, or a thyroid condition could be triggers. She had the flu three weeks ago and reports feeling better now, although she notes a subjective low-grade fever at home since the illness. mammogram: ordered pap smear: last done 2020 referral placed vaccines: Tdap is due - declined flu shot [facility] Medical History COVID-19 History of endometriosis History of ovarian cyst Surgical History History of surgery on lower extremity History of removal of cyst History of delivery Family History Mother HTN (hypertension) Father Ear infection Social History Housing: House Alcohol intake: never Patient Tobacco Use Status: Former Tobacco user Tobacco use type: Cigarette e-Cigarette/Vaping Use: Never Used Second Hand Smoke Exposure: No service: No Current occupational status: unemployed 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 1. Little interest or pleasure in doing things: not at all 2. Feeling down, depressed, or hopeless: not at all 3. Trouble falling or staying asleep, or sleeping too much: not at all 4. Feeling tired or having little energy: not at all 5. Poor appetite or overeating: not at all 6. Feeling bad about yourself - or that you are a failure or have let yourself or your family down: not at all 7. Trouble concentrating on things, such as reading the newspaper or watching television: not at all 8. Moving or speaking so slowly that other people could have noticed. Or the opposite - being so fidgety or restless that you have been moving around a lot more than usual: not at all 9. Thoughts that you would be better off or of hurting yourself in some way: not at all Total score: 0 Depression Screening Interpretation: Negative Depression Screening Done: Yes 03120 - PHQ-9 Billing: Yes Source: Developed by Drs. Jacobo Davison, Margie Asencio, Rob Velasquez and colleagues, with an educational jessica from [employer]. Thrive Questionnaire Date Thrive assessed: 03/17/25 I am a: Patient What is your living situation today?: I have a steady place to live Within the past 12 months, did the food you bought not last and you didn't have the money to get more?: Never true Within the past 12 months, did you worry whether your food would run out before you got money to buy more?: Never true Do you have trouble paying for medicines?: No Do you have trouble getting transportation to medical appointments?: No Do you have trouble paying your heating and electricity bill?: No Do you have trouble taking care of your child, family member or friend?: No Do you have trouble with day-to-day activities such as bathing, preparing meals, shopping, managing finances, etc.?: No Are you currently unemployed and looking for a job?: I choose not to answer this question Are you interested in more education?: I choose not to answer this question Please select the resources that you would like help with: None Currently or been in a relationship where the following occur: No concerns reported THRIVE Score: 0 AUDIT C Alcohol Use Questionnaire (AUDIT-C) 1. How often do you have a drink containing alcohol?: Never 2. How many drinks containing alcohol do you have on a typical day when you are drinking?: 1 or 2 3. How often do you have six or more drinks on one occasion?: Never Total Score: 0 JAYDA-7 AMB Questionnaire JAYDA-7 Date JAYDA - 7 assessed: 03/21/25 Feeling nervous, anxious, or on edge: 0 = Not at all Not being able to stop or control worryin = Not at all Worrying too much about different things: 0 = Not at all Trouble relaxin = Not at all Being so restless that it is hard to sit still: 0 = Not at all Becoming easily annoyed or irritable: 0 = Not at all Feeling afraid as if something awful might happen: 0 = Not at all Total JAYDA-7 score (0-4 normal; 5-9 mild; 10-14 moderate; 15-21 severe): 0 Source: Developed by Drs. Jacobo Davison, Margie Asencio, Rob Velasquez and colleagues, with an educational jessica from [employer]. Review of Systems Const Denies body aches, Denies fatigue, Denies fever(s), Denies frequent falls, Denies headache(s) and Denies weakness Eyes Reports no additional complaints and Denies change in vision ENT Denies dysphagia, Denies dizziness, Denies facial pain, Denies headache(s), Denies nasal congestion and Denies odynophagia Card Denies chest pain, Denies syncope, Denies irregular heart rhythm, Denies leg edema, Denies lightheadedness and Denies dyspnea Resp Denies cough and Denies dyspnea GI Denies abdominal pain, Denies constipation, Denies dysphagia, Denies dyspepsia, Denies diarrhea, Denies nausea, Denies odynophagia and Denies vomiting Denies urinary frequency, Denies dysuria, Denies urinary hesitancy and Denies urinary urgency Musc Denies back pain and Denies myalgias Skin/Breast Reports system reviewed and no additional complaints, except as documented Neuro Denies dizziness, Denies syncope, Denies frequent falls, Denies headache(s) and Denies weakness Psych Reports no additional complaints Endo Denies fatigue Physical exam (Primary Care) Vital Signs: Last Vital Signs Temp 97.3 F 03/21/25 13:21 Oxygen Delivery Method Room Air 03/21/25 13:21 Tobacco/Smoking Status: Tobacco use Status Tobacco use date assessed 03/21/25 03/21/25 13:26 Patient Tobacco Use Status Former Tobacco user 03/21/25 13:26 Tobacco use type Cigarette 03/21/25 13:26 e-Cigarette/Vaping Use Never Used 03/21/25 13:26 PHQ-9: PHQ-9 Score PHQ-9: Total score 0 03/21/25 13:26 Depression Screening Interpretation: Negative Thrive Assessment: Date of Thrive Assessment Date Thrive assessed 03/17/25 03/21/25 13:26 Currently or been in a relationship where the following occur: No concerns reported Const General: cooperative, healthy appearing, comfortable and no acute distress Orientation/consciousness: patient oriented x3 HENMT Head: Yes normocephalic Ears: hearing grossly normal bilaterally, external ears normal, TM's normal bilaterally and EAC's normal General nose exam: Normal external nose present Face and sinus: Yes normal facial exam and Yes sinuses nontender Mouth: Normal oral and palatal mucosa present and tongue normal Throat: Yes posterior oropharynx normal Eyes General: appearance normal, both eyes and all related structures Conjunctivae: conjunctivae normal Pupils: Equal, round and reactive pupils present EOM: EOMs intact bilaterally and No Nystagmus present Neck Neck: Yes normal visual inspection, Yes full ROM and Yes no lymphadenopathy Chest Chest palpation & inspection: normal inspection of the chest Resp Effort & Inspection: normal respiratory effort Auscultation: clear to auscultation bilaterally, no crackles, no rales, no rhonchi, no wheezes and breath sounds present Cardio Rate: regular rate Rhythm: regular rhythm Peripheral pulses: radial pulses present and dorsalis pedis present GI Inspection: Yes normal to inspection and No Abdominal wall edema Palpation (GI): Soft to palpation, not firm and nontender Auscultation: normal bowel sounds Rectal Exam - Female: deferred General: Yes no CVA tenderness Back/Spine/Pelvis Back: no CVA tenderness Skin General skin exam: no rashes or lesions noted Neuro General: patient oriented x3 Cranial nerves: Yes Equal, round and reactive pupils present, Yes Midline tongue present, Yes Ability to bilaterally elevate shoulders present and No Nystagmus present Gait exam (Neuro): Normal gait present Extrem General: Yes normal to inspection, Yes full ROM, No no pedal edema and No edema Psych Speech and movement: Normal speech and movement present Affect: normal affect Insight: Good insight present (Psych) Judgement: Good judgement present (Psych) Coding Level of Care Code Est Pt Prev Care 40-64y(78197) Diagnoses Annual physical exam Z00.00 Low vitamin D level R79.89 Eczema of both hands L30.9 Hypothyroidism, unspecified type E03.9 Hypothyroidism type: unspecified Additional Codes PHQ-9 - 12551 - PHQ-9 Billing: Yes ([id number]) Assessment & Plan Assessment & Plan (1) Annual physical exam: Code(s): Z00.00 - Encounter for general adult medical examination without abnormal findings Category: Medical Plan: Fasting lab work has been ordered to recheck thyroid function, cholesterol, vitamin D levels, and a CBC. An order for a screening mammogram was placed, despite the patient's reluctance. A referral will be made for a gynecological visit for a Pap smear. The patient consented to and will receive a tetanus vaccine during this visit. She declined the flu shot. Follow-up is scheduled for a yearly annual exam, with the understanding to follow up sooner if any issues arise or if lab results are abnormal. (2) Low vitamin D level: Code(s): R79.89 - Other specified abnormal findings of blood chemistry Category: Medical Plan: Continue on Vitamin D supplement and ordered for updated blood work. (3) Eczema of both hands: Code(s): L30.9 - Dermatitis, unspecified Category: Medical Plan: The patient's contact dermatitis, which looks like eczema, is likely triggered b y multiple factors including frequent handwashing and stress. She should continue consistent use of her preferred lotion. A refill for the steroid cream has been sent to the pharmacy for use as needed during flare-ups, with the instruction to apply it for no more than 14 consecutive days followed by at least a two-week break. (4) Hypothyroid: Code(s): E03.9 - Hypothyroidism, unspecified Category: Medical Qualifiers: Hypothyroidism type: unspecified Qualified Code(s): E03.9 - Hypothyroidism, unspecified Plan: Ordered for repeat blood work and plan to continue on Levothyroxine at this time. Plan This note was constructed using voice recognition software. While every effort has been made to ensure accuracy and crossbar switch adjuster, still areas may have been included sometimes these areas may affect the content or meeting of the given symptoms. Total time spent caring for the patient today was thirty minutes. This includes time spent before the visit reviewing the chart, time spent during the visit, and time spent after the visit and documentation. Patient was informed and verbally consented to the use of an ambient scribe for clinic note documentation during this visit. Orders: Orders Vitamin B12 and Folate Today Z13.21 - Encounter for screening for nutritional disorder Comprehensive Met. Panel Today Z00.00 - Encounter for general adult medical examination without abnormal findings, Z13.1 - Encounter for screening for diabetes mellitus Lipid Panel Today Z13.220 - Encounter for screening for lipoid disorders MM tomosynthesis screening BI Today Z12.31 - Encounter for screening mammogram for malignant neoplasm of breast TSH reflex Free T4 Today Z13.29 - Encounter for screening for other suspected endocrine disorder Vitamin D 25-OH Total Today Z13.21 - Encounter for screening for nutritional disorder Complete Blood Count Auto Diff Today Z13.0 - Encounter for screening for diseases of the blood and blood-forming organs and certain disorders involving the immune mechanism TDaP Immunization Today Z23 - Encounter for immunization Referrals GLOBAL CLINICAL LEADER Referral Z12.4 - Encounter for screening for malignant neoplasm of cervix Medications: New Boostrix Tdap (diphth,pertus(acell),tetanus) 0.5 mL IM ONCE 0.5 mL 0RF NS Z23 - Encounter for immunization Refilled cholecalciferol (vitamin D3) 25 mcg PO DAILY 90 caps 3RF triamcinolone acetonide 0.5% do not exceed use greater than 14 days 1 appl topical BID 30 grams 0RF
--- NOTE | 2025-03-21 14:08 | AM.OFFVISNUR ---
Vital Signs 03/21/25 13:21 Height 5 ft 7 in Weight 165 lb BMI 25.8 BP 110/78 Blood Pressure Location Lt brachial Position Sitting Pulse 64 Pulse Source Pulse Oximeter Temp 97.3 F Temp Source Temporal Artery Scan Pulse Oximetry (%) 99 Oxygen Delivery Method Room Air Intake Visit Reasons: Annual exam Allergies No Known Allergies Allergy (Verified 03/21/25 13:36) Medication List - Last Reconciled 03/21/25 by Christine Taylor PA-C cholecalciferol (vitamin D3) 25 mcg PO DAILY levothyroxine 112 mcg PO DAILY triamcinolone acetonide 0.5% 1 appl topical BID Immunizations Boostrix Tdap 2.5 Lf unit-8 mcg-5 Lf/0.5 mL intramuscular syringe Performing Provider: Christine Taylor PA-C [facility] Administered by: Funmilayo Middleton RN on 03/21/25 14:09 Dose Route Admin Location Dispensed Lot Number Expiration Date ND Transaction Processor 0.5 mL IM Left Deltoid 0.5 mL [id number] 10/19/27 [id number] Total Dispensed Waste 0.5 mL 0 % VIS Given Date VIS Provided VIS Publication Date 03/21/25 Single Vaccine 20 Eligibility Eligibility Date Funding Source Not [facility] Eligible 03/21/25 Private Assessment & Plan Assessment & Plan (1) Annual physical exam: Code(s): Z00.00 - Encounter for general adult medical examination without abnormal findings Category: Medical (2) Low vitamin D level: Code(s): R79.89 - Other specified abnormal findings of blood chemistry Category: Medical (3) Eczema of both hands: Code(s): L30.9 - Dermatitis, unspecified Category: Medical (4) Hypothyroid: Code(s): E03.9 - Hypothyroidism, unspecified Category: Medical Qualifiers: Hypothyroidism type: unspecified Qualified Code(s): E03.9 - Hypothyroidism, unspecified Orders: Orders Vitamin B12 and Folate Today Z13.21 - Encounter for screening for nutritional disorder Comprehensive Met. Panel Today Z00.00 - Encounter for general adult medical examination without abnormal findings, Z13.1 - Encounter for screening for diabetes mellitus Lipid Panel Today Z13.220 - Encounter for screening for lipoid disorders MM tomosynthesis screening BI Today Z12.31 - Encounter for screening mammogram for malignant neoplasm of breast TSH reflex Free T4 Today Z13.29 - Encounter for screening for other suspected endocrine disorder Vitamin D 25-OH Total Today Z13.21 - Encounter for screening for nutritional disorder Complete Blood Count Auto Diff Today Z13.0 - Encounter for screening for diseases of the blood and blood-forming organs and certain disorders involving the immune mechanism TDaP Immunization Today Z23 - Encounter for immunization Referrals BEEF SELECTOR Referral Z12.4 - Encounter for screening for malignant neoplasm of cervix Medications: Refilled cholecalciferol (vitamin D3) 25 mcg PO DAILY 90 caps 3RF triamcinolone acetonide 0.5% do not exceed use greater than 14 days 1 appl topical BID 30 grams 0RF Coding Diagnoses Annual physical exam Z00.00 Low vitamin D level R79.89 Eczema of both hands L30.9 Hypothyroidism, unspecified type E03.9 Hypothyroidism type: unspecified
--- OUTSIDE RECORDS SUMMARY | 2025-03-21 16:36 | XMS_ITS | Encounter Summary ---
Author Organization [facility] Address [address] [place] [id number] Phone Care Team Providers Care Lease Picker Name Role Phone Pcp, Unknown Primary Care Provider Unavailabl e Reason for Visit * Reason Onset Date Comments Test Results 08/03/2019 Encounter Details Date Type Department Care Team (Late st Contact Info) Description 08/03/2019 Telephone [facility] [address] [place] [address] Dana Zaidi RN [address] [place] [address] [email or web address] Test Results Social History Tobacco Use Types Packs/Day Years Used Date Smoking Tobacco: Never Assessed Comments Unknown Sex and Gender Information Value Date Recorded Sex Assigned at Not on file Legal Sex Female 9:06 AM EDT Gender Identity Not on file Sexual Orientation Not on file documented as of this encounter Plan of Treatment Not on file documented as of this encounter Visit Diagnoses Not on filedocumented in this encounter Additional Health Concerns Infection Onset Date Last Indicated Resolved Time CoV-Risk Comment:Referred for COVID-19 testing 08/01/2019 08/01/2019 08/15/2019 1:24 AM E DT CoV-Risk 02/26/2020 02/27/2020 02/27/2020 3:57 PM EDT CoV-Risk 05/20/2020 05/20/2020 05/21/2020 7:31 AM EST documented as of this encounter Care Teams Lease Picker Relationship Specialty Start Date End Date Pcp, Unknown PCP - General 08/01/19 documented as of this encounter Additional Source Comments The information contained in this document represents components of the legal health record. It is not the complete legal health record.[facility]
--- OUTSIDE RECORDS SUMMARY | 2025-03-21 16:36 | XMS_ITS | Encounter Summary ---
Author Organization [facility] Address [address] [place] [phone] Phone Care Team Providers Care Preschool Assistant Name Role Phone Pcp, Unknown Primary Care Provider Unavailabl e Reason for Visit * Reason Onset Date Comments Test Results 08/04/2019 Encounter Details Date Type Department Care Team (Late st Contact Info) Description 08/04/2019 Telephone [facility] [address] [place] [address] Jillian Mohamud, RN [address] [place] [address] [email or web address] Test Results Social History Tobacco Use Types [...] documented as of this encounter Care Teams Preschool Assistant Relationship Specialty Start Date End Date Pcp, Unknown PCP - General 08/01/19 documented as of this encounter Additional Source Comments The information contained in this document represents components of the legal health record. It is not the complete legal health record.[facility]
--- OUTSIDE RECORDS SUMMARY | 2025-03-21 16:36 | XMS_ITS | Clinical Summary ---
Author Organization [facility] Address [address] [place] [phone] Phone Care Team Providers Care Mid Level Java Developer Name Role Phone Pcp, Unknown Primary Care Provider Unavailabl e Immunizations Immunization Administration Dates Next Due COVID-19 (Pre-02/28) Valeriano Vaccine, rS-Ad26, P F 01/16/2021 Influenza, Unspecified Formulation 02/18/2020, Social History Tobacco Use Types Packs/Day Years Used Date Smoking Tobacco: Never Assessed Education Answer Date Recorded Are you interested in more education? Not on aaron e 09/03/2022 Are you concerned about learning? Not on file 09/03/2022 No 09/03/2022 No 09/03/2022 Digital Access Answer Date Recorded No 10/02/2022 No 10/02/2022 No 10/02/2022 Reliable internet access at home? Not on file 10/02/2022 Device with a working camera? Not on file Comments Unknown Sex and Gender Information Value Date Recorded Sex Assigned at Not on file Legal Sex Female 9:06 AM EDT Gender Identity Not on file Sexual Orientation Not on file Plan of Treatment Health Maintenance Due Date Last Done Comments Adult Td,Tdap Booster 1982 DEPRESSION SCREENING 1994 SMOKING Hx and SMOKELESS TOBACCO SCREENING 1995 HEPATITIS C SCREENING 2000 HIV ONE-TIME SCREENING (18-6 5 YEARS) 2000 PAP SMEAR 2003 MAMMOGRAM 2022 INFLUENZA VACCINE (#1) 2024 0, 02/18/2020, 02/20/2019 COVID-19 VACCINE (2 2024-2 6 season) 2025 01/16/2021 HEPATITIS A VACCINES Aged Out No long er eligible based on patient's age to complete this topic HIB VACCINES Aged Out No longer eligi ble based on patient's age to complete this topic IPV VACCINES Aged Out No longer eligi ble based on patient's age to complete this topic MENINGOCOCCAL VACCINES (ACWY) Aged Out No longer eligible based on patient's age to complete this topic MENINGOCOCCAL VACCINES (B) Aged Out N o longer eligible based on patient's age to complete this topic PNEUMOCOCCAL VACCINES (0-49 years) Aged Out No longer eligible b ased on patient's age to complete this topic Medical Devices Not on file Insurance EMPLOYEES [employer]ILY [facility] [place] [address] [place] [address] EMPLOYEES FAMILY Member Subscriber Plan / Payer (Ef fective 2020-Present) Name:Nelly To Relation to Subscriber:Self Name:Nelly To Payer ID:[id number] (NAIC) Group ID:Not on file Type:PPO Address: [employer] CLAIMS [address] [place] [address] EMPLOYEES FAMILY [facility] EMPLOYEES FAMILY [facility] EMPLOYEES FAMILY EMPLOYEES FAMILY [facility] [facility] EMPLOYEES FAMILY [employer] EMPLOYEES FAMILY Care Teams Mid Level Java Developer Relationship Specialty Start Date End Date Pcp, Unknown PCP - General 08/01/19 Additional Source Comments The information contained in this document represents components of the legal health record. It is not the complete legal health record.[facility]
--- OUTSIDE RECORDS SUMMARY | 2025-03-21 16:36 | XMS_ITS | Encounter Summary ---
Author Organization [facility] Address [address] [place] [address] Phone Care Team Providers Care Boat Dispatcher Name Role Phone Pcp, Unknown Primary Care Provider Unavailabl e Reason for Visit * Reason Onset Date Comments Test Results 08/05/2019 Encounter Details Date Type Department Care Team (Late st Contact Info) Description 08/05/2019 Telephone [facility] [address] [place] [address] Jillian Mohamud, RN [address] [place] [address] Test Results Social History Tobacco Use Types [...] documented as of this encounter Care Teams Boat Dispatcher Relationship Specialty Start Date End Date Pcp, Unknown PCP - General 08/01/19 documented as of this encounter Additional Source Comments The information contained in this document represents components of the legal health record. It is not the complete legal health record.[facility]
== END 2025-03-21 14:09 | disposition home or self-care (01) ==
LOC: HO.HMCH 13:18
DX: Z23 Encounter for immunization (principal)

== ENCOUNTER → 2025-03-21 13:17 | Outpatient (BNVA) | payer OTHER, SELFPAY | DX: Z00.00 Encounter for general adult medical examination without abnormal findings (principal); E55.9 Vitamin D deficiency, unspecified; E03.9 Hypothyroidism, unspecified; L30.9 Dermatitis, unspecified | CPT/HCPCS: 90471; 90715 ==